=== PATIENT | male | born 1940 | race Caucasian/White ===

== ENCOUNTER 2020-12-14 21:25 | Inpatient (IN) | payer MEDICARE, BC, SELFPAY ==
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
[2020-12-14 22:21] VITALS: BP 115/61; PULSE 86; RESP 18; TEMP 36.3; O2SAT 99; BMI 25.0
--- NOTE | 2020-12-15 00:15 | NURSING ---
Report from Nicole at [facility], stated that Chu was removed at 13:12. Nicole stated patient has yet to void. When patient arrived, during Admission questions, this Nurse asked patient if he had voided yet? Patient stated, No. Abdomen soft but tender with palpation. Bladder scanned patient at >572. SANGITA Mariano called [facility]. New order to place chu. 16 [place] coude placed using sterile technique. Patient tolerated well.
[2020-12-15 05:34] LABS: Absolute Lymphocyte Count 1.37 X10^3/uL (0.83-4.51); Absolute Neutrophil Count 8.8 X10^3/uL (2.0-7.7); Basophil# 0.02 X10^3/uL; Basophil% 0.2 % (0-1); Eosinophil# 0.68 X10^3/uL; Eosinophils% 5.6 % (0-5); Hematocrit 27.8 % (40-54); Lymphocyte # 1.37 X10^3/ul (0.83-4.51); Lymphocyte % 11.3 % (19-41); Mean Corp Hgb Conc 32.4 g/dL (32-36); Mean Corpuscular Hgb 32.6 pg (27.0-32.0); Mean Corpuscular Volume 100.7 fL (80-94); Monocyte# 1.16 X10^3/uL; Monocyte% 9.6 % (0-10); NRBC Flagged by Analyzer 0 % (0-5); Neutrophil # 8.75 X10^3/uL (2.7-7.7); Neutrophil % 72.1 % (47-70); Platelet Count 156 K/mm3 (150-450); RBC Distribution Width CV 13.1 % (11.6-14.6); RBC Distribution Width SD 48.2 fl (35.1-43.9); Red Blood Count 2.76 M/mm3 (4.6-6.2); White Blood Count 12.1 K/mm3 (4.4-11.0)
[2020-12-15 05:35] LABS: Bedside Glucose 120 mg/dL (70-110)
[2020-12-15 05:43] VITALS: BP 119/57; PULSE 80
[2020-12-15] MEDS: Metoprolol(XL)Succ 25 MG Tablet PO (05:43)
[2020-12-15] MEDS: NYSTATIN 500,000 UNIT/5 ML UDC 100000 UNIT PO (05:43)
[2020-12-15] MEDS: Pregabalin 50 MG Capsule 100 MG PO (05:43)
[2020-12-15] MEDS: Pantoprazole Sodium 40 MG Tablet PO (05:43)
[2020-12-15] MEDS: Docusate Sodium 100 MG Capsule PO (05:44)
[2020-12-15] MEDS: Amiodarone 200 MG Tablet PO (05:44)
[2020-12-15] MEDS: Finasteride 5 MG Tablet PO (05:44)
[2020-12-15] MEDS: DULoxetine Hcl 30 MG Capsule PO (05:44)
[2020-12-15] MEDS: guaiFENesin 600 MG Tablet PO ×2 (05:44→17:55)
[2020-12-15] MEDS: Potassium Chloride Oral Tablet 20 MEQ PO ×3 (05:46→21:24)
[2020-12-15] MEDS: Polyethylene Glycol 3350 17 GM PACKET PO ×2 (05:46→17:55)
--- NOTE | 2020-12-15 05:52 | NURSING ---
Surgical dressing saturated with blood. Drainage coming out all sides of dressings and on green pad under patient. Removed dressing. Copious amount of blood on dressing. Also noted what appears to be a large sized blood clot. Area cleaned with normal saline and pat dry. Blood noted to be draining at the distal end of incision. New Surgical mepilex placed on left hip over surgical site. RN in room to assess area as well. RN instructed to hold Aspirin and Plavix until speak with Dr. Merrill.
[2020-12-15 06:15] LABS: Anion Gap 5 (5-15); BUN 19 mg/dL (7-18); BUN/Creat Ratio 22.3 RATIO (10-20); Calcium,Total 8.3 mg/dL (8.5-10.1); Chloride 102 mmol/L (98-107); Creatinine, Serum 0.85 mg/dL (0.70-1.30); EST Glomerular Filtration Rate 91 mL/min (>60); Est Glom Filt Rate - Afr Amer 110 mL/min (>60); Estimated Creatinine Clearance 71.36 ml/min; Glucose 113 mg/dL (74-106); Potassium 4.2 mmol/L (3.5-5.1); Sodium Level 137 mmol/L (136-145)
--- NOTE | 2020-12-15 07:55 | HP.PCM_ITS ---
HPI - General General Date of Admission: 12/14/20 HPI Narrative LUNA DUTTON, is a 80 Male with followin12/11/2020 Admit to [facility] with fall, left hip fracture. Creatinine 1.79, Troponin normal. EKG showed T wave inversions anterior leads, right bundle branch block. Chest X-ray showed small bilateral pleural effusions. 12/11/2020 Dr. Romero performed left hip hemiarthroplasty. Medical records limited. 12/14/2020 Admit to TCU with debility, here for rehabilitation, strengthening, prior to discharge home with . [facility] Medical History (Updated 12/15/20 @ 08:[address] Beny Merrill MD) 3-vessel CAD Abnormal glucose Acute DE Allergic rhinitis BPH loc w urin obs/LUTS Cataract COPD (chronic obstructive pulmonary disease) Dyspepsia Dyspepsia and other specified disorders of function of stomach Esophageal reflux Essential and other specified forms of tremor Former smoker Fracture of left hip Fracture of left hip requiring operative repair History of COPD Hyperlipidemia Hypokalemia Hypoxia Migraine Myocardial infarct Pain in limb Peripheral neuropathy Psychosexual dysfunction Home Medications amiodarone 200 mg tablet 200 mg PO DAILY 07/31/18 [History Last Taken Unknown] aspirin 81 mg tablet,delayed release 81 mg PO DAILY 07/31/18 [History Last Taken Unknown] atorvastatin 40 mg tablet 40 mg PO DAILY 07/31/18 [History Last Taken Unknown] clopidogrel 75 mg tablet 75 mg PO DAILY 07/31/18 [History Last Taken Unknown] finasteride 5 mg tablet 5 mg PO DAILY 07/31/18 [History Last Taken Unknown] furosemide 40 mg tablet 40 mg PO DAILY PRN 07/31/18 [History Last Taken Unknown] levetiracetam 1,000 mg tablet 1,000 mg PO QHS 07/31/18 [History Last Taken Unk nown] metformin 500 mg tablet 500 mg PO BREAKFAST 07/31/18 [History Last Taken Unknown] pantoprazole 40 mg tablet,delayed release 40 mg PO DAILY 07/31/18 [History Last Taken Unknown] potassium chloride 20 mEq tablet,extended release(part/cryst) 20 meq PO TID 07/31/18 [History Last Taken Unknown] tamsulosin 0.4 mg capsule 0.4 mg PO QHS 07/31/18 [History Last Taken Unknown] topiramate 200 mg tablet 200 mg PO QHS 07/31/18 [History Last Taken Unknown] prednisone 10 mg tablet 10 mg PO QDAY #30 tablet 06/03/20 [Rx Last Taken Unknown] albuterol sulfate [Ventolin HFA] 2 puff INHALATION Q6H 12/14/20 [History Last Taken Unknown] ciclesonide [Alvesco] 2 puff INHALATION BID 12/14/20 [History Last Taken Unknown] tiotropium-olodaterol [Stiolto Respimat] 2 puff INHALATION DAILY 12/14/20 [History Last Taken Unknown] Allergy/AdvReac Type Severity Reaction Status Date / Time tizanidine Allergy Unknown Irritabilit Verified 06/03/20 13:53 y Family History Mother Heart disease Father COPD (chronic obstructive pulmonary disease) CVA (cerebral vascular accident) Surgical History (Updated 12/15/20 @ 07:[address] Beny Merrill MD) History of left hip hemiarthroplasty Social History (Updated 12/15/20 @ 07:[address] Beny Merrill MD) household members: spouse Smoking Status: Former smoker Tobacco: How many years used: 50 how long ago did patient quit smokin, 3ppd second hand exposure: Yes alcohol intake: current alcohol intake frequency: holidays/special occasions only Alcohol type: beer ROS Constitutional Constitutional: Denies chills, fever(s) or weight gain ENT HEENT: Denies headache(s), nasal congestion or nasal discharge Cardiovascular Cardiovascular: Denies chest pain or palpitations Respiratory/Chest Respiratory/Chest: Denies cough, excessive phlegm production or shortness of breath with exertion Gastrointestinal Gastrointestinal: Denies abdominal pain, nausea or vomiting Genitourinary Genitourinary: Denies dysuria Musculoskeletal Musculoskeletal: Denies joint pain or joint swelling Integumentary Integumentary: Denies rash or wounds Neurologic Neurologic: Denies focal weakness, numbness or tingling Psychiatric Psychiatric: Reports auditory hallucinations; Denies anxiety, depression, homicidal ideation or suicidal ideation Vital Signs Vital Signs Vital Signs: 12/14/20 22:21 12/14/20 23:20 12/15/20 05:43 Temperature 97.4 F L Temperature Source Temporal Pulse Rate 86 80 Pulse Rhythm Regular Pulse Strength Normal (2+) Respiratory Rate 18 Respiratory Effort Normal Non-Labored Respiratory Depth Normal Respiratory Pattern Normal Blood Pressure 115/61 119/57 L Blood Pressure Mean 79 Blood Pressure Source Monitor Pulse Ox 99 Oxygen Delivery Method Nasal Cannula Nasal Cannula Oxygen Flow Rate (L/min) 3 3 12/15/20 07:15 Temperature Temperature Source Pulse Rate Pulse Rhythm Pulse Strength Respiratory Rate Respiratory Effort Respiratory Depth Respiratory Pattern Blood Pressure Blood Pressure Mean Blood Pressure Source Pulse Ox Oxygen Delivery Method Nasal Cannula Oxygen Flow Rate (L/min) 3 Weight Weight: 81.25 kg Body Mass Index (BMI) 25.0 Physical Exam Const alert and oriented x3 General Appearance: cooperative HEENT normocephalic Eyes PERRL and EOMs intact bilaterally Neck supple, no JVD and no carotid bruits Resp normal respiratory effort, normal air movement and clear to auscultation bilaterally Cardio regular rate and regular rhythm GI normal to inspection, nondistended, normoactive bowel sounds, non-tender and non-distended Extremity normal capillary refill General Extremity: Negative for edema Skin no rashes or lesions noted General Skin Exam: no breakdown Psych affect normal Appearance: appropriate Results Lab / Micro Data Result Diagrams: 12/15/20 05:05 12/15/20 05:05 Labs: Laboratory Results - last 24 hr 12/15/20 05:05: WBC 12.1 H, RBC 2.76 L, Hgb 9.0 L, Hct 27.8 L, MCV 100.7 H, MCH 32.6 H, MCHC 32.4, RDW Std Deviation 48.2 H, RDW Coeff of [place] 13.1, Plt Count 156, MPV 10.0, Immature Gran % (Auto) 1.200 H, Neut % (Auto) 72.1 H, Lymph % (Auto) 11.3 L, [place] % (Auto) 9.6, Eos % (Auto) 5.6 H, Baso % (Auto) 0.2, Absolute Neuts (auto) 8.8 H, Absolute Lymphs (auto) 1.37, Nucleated RBC % 0 12/15/20 05:05: Sodium 137, Potassium 4.2, Chloride 102, Carbon Dioxide 30.0, Anion Gap 5, BUN 19 H, Creatinine 0.85, Estim Creat Clear Calc 71.36, Est GFR (MDRD) Af Amer 110, Est GFR (MDRD) Non-Af 91, BUN/Creatinine Ratio 22.3 H, Glucose 113 H, Calcium 8.3 L 12/15/20 05:33: POC Glucose 120 H Assessment & Plan Assessment/Plan (1) Debility: (2) Closed left hip fracture: (3) Asthma: (4) COPD (chronic obstructive pulmonary disease): (5) Atrial fibrillation: (6) Hyperlipidemia: (7) Anxiety: (8) Coronary artery disease: (9) Benign prostatic hyperplasia: (10) Edema: (11) Diabetic neuropathy: (12) Diabetes mellitus: (13) Hypertension: (14) Gastroesophageal reflux disease: (15) Hypokalemia: PLAN: 80 year old male with below past medical history hospitalized for left hip fracture, underwent left hip hemiarthroplasty 12/11/2020, admitted to TCU with debility, here for rehabilitation, strengthening, prior to discharge home with . * Debility - PT/OT. * Pain - Tylenol 1000mg Q6H prn pain (1-3), Tramadol 50mg Q6H prn pain (4-10). * Bowel - Miralax 17gm bid, Senna/colace 2 tablets twice daily, Dulcolax 10mg daily prn. * Adult immunization - Administer prevnar 13, pneumovax 23, fluzone, covid19 vaccine as appropriate. * DVT prophylaxis - Hold, bleeding from incision. * Asthma/COPD - Anoro 1 puff daily, Budesonide 0.5mg neb bid, Albuterol 2 puffs Q6H. * Atrial fibrillation - Metoprolol succinate 25mg daily, Amiodarone 200mg daily, ?anticoagulation. * Coronary Artery disease - Metoprolol succinate 25mg daily, Plavix 75mg daily, Hold aspirin 81mg daily x 7 days due to incision bleeding. * Hyperlipidemia - Atorvastatin 40mg qhs. 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 * BPH/urinary retention - Finasteride 5mg daily, Tamsulosin 0.4mg daily, indwelling chu catheter due to retention, remove chu in 3 days. * Edema - Lasix 40mg daily * Congestion - Mucinex 600mg bid. * Diabetic polyneuropathy(severe) - Keppra 1500mg QAM, 1000mg QHS, Lyrica 100mg QAM, 200mg QHS, Topamax 200mg QHS. * Insomnia - Melatonin 10mg QHS. * Skin irritation - Calmoseptine topical twice daily. * Diabetes Mellitus II - Metformin 500mg QAM. * Thrush - Nystatin 500,000 units 4x/day x 10 days. * Tinea Corporis - Nystatin powder topical twice daily. * GERD - Pantoprazole 40mg daily. * Dry Eyes - Artificial Tears 2gtt Q1H prn. * Hypokalemia - KCL 20meq tid.
[2020-12-15] MEDS: Menthol/Lanolin/Calamine/Znox 113 GM Tube 1 APPLIC TOPICAL ×2 (08:44→21:25)
[2020-12-15] MEDS: Nystatin Powder 15gm Bottle 1 APPLIC TOPICAL ×2 (08:45→21:25)
[2020-12-15] MEDS: Acetaminophen 500 MG Tablet 1000 MG PO (08:47)
[2020-12-15] MEDS: traMADol 50 MG Tablet PO (08:47)
[2020-12-15] MEDS: Senna/Docusate Sodium 1 Tablet 2 TABLET PO ×2 (08:49→17:55)
[2020-12-15] MEDS: metFORMIN HCl 500 MG Tablet PO (08:49)
[2020-12-15] MEDS: Clopidogrel Bisulfate 75 MG Tablet PO (08:50)
[2020-12-15] MEDS: Furosemide 40 MG Tablet PO (08:56)
[2020-12-15] MEDS: Bisacodyl 5 MG Tablet 10 MG PO (08:56)
[2020-12-15] MEDS: levETIRAcetam 1,000 MG Tablet 1000 MG PO ×2 (08:57→21:25)
[2020-12-15] MEDS: levETIRAcetam 500 MG Tablet PO (08:57)
--- NOTE | 2020-12-15 09:15 | NURSING ---
PT [facility] BRINGS IN CARD TO SHOW THAT PT HAS HAD HIS COVID SHOTS. THIS NURSE CALLED AND SHE STATED SHE WOULD BRING IT IN TODAY. SHE ASKED HOW HE WAS DOING,UPDATED HER AND THEN SHE STATED THAT THE 2 OF THEM ARE NOT GETTING ALONG LATELY AND STATED THAT THE PT IS MAD AT HER. RN AWARE
[2020-12-15] MEDS: Tuberculin,Purif.prot.deriv. 50 TU/ML Vial 0.1 ML ID (10:53)
[2020-12-15 10:55] LABS: Bedside Glucose 161 mg/dL (70-110)
[2020-12-15] MEDS: NYSTATIN 500,000 UNIT/5 ML UDC 500000 UNIT PO ×3 (11:14→21:25)
--- NOTE | 2020-12-15 11:35 | NURSING ---
PRN DULCOLAX GIVEN THIS MORNING DUE TO UNKNOWN LAST BM.
[2020-12-15] MEDS: 0.9% Saline Lock 10 ML Syringe IV ×2 (12:52→21:27)
[2020-12-15 14:19] VITALS: BP 132/69; PULSE 72; RESP 16; TEMP 36.3; O2SAT 98
--- NOTE | 2020-12-15 16:04 | PCM.PN.RX ---
Progress Note - Pharmacy Subjective: TCU Admission Objective: Allergies tizanidine Allergy (Unknown, Verified 06/03/20 13:55) Irritability Current Medications Generic Name Dose Route Start Last Admin Trade Name Freq PRN Reason Stop Dose Admin Acetaminophen 1,000 mg 12/15/20 08:20 12/15/20 08:47 Acetaminophen 500 Mg Tablet PO 1,000 mg Q6H PRN PRN Administration Pain Score 1-3 Albuterol Sulfate 2 puff 12/15/20 06:00 12/15/20 11:14 Albuterol Sulfate Hfa 6.7 Gm Inhaler (200 Puffs) INHALATION 2 puff Q6 PRISCILA Administration Amiodarone HCl 200 mg 12/15/20 06:00 12/15/20 05:44 Amiodarone 200 Mg Tablet PO 200 mg DAILY PRISCILA Administration Aspirin 81 mg 12/15/20 06:00 12/15/20 08:50 Aspirin E.C. 81 Mg Tablet PO Not Given DAILY PRISCILA Atorvastatin Calcium 40 mg 12/15/20 22:00 Atorvastatin Calcium 40 Mg Tablet PO QHS PRISCILA Bisacodyl 10 mg 12/15/20 08:20 12/15/20 08:56 Bisacodyl 5 Mg Tablet PO 10 mg DAILY PRN Administration Constipation Budesonide 0.5 mg 12/15/20 08:15 Budesonide Respules 0.5 Mg/2 Ml Ampul.Neb. INHALATION BID.RT PRISCILA Calamine/Phenol 1 applic 12/15/20 06:00 12/15/20 08:44 Menthol/Lanolin/Calamine/Znox 113 Gm Tube TOPICAL 1 applic BID PRISCILA Administration Protocol Clopidogrel Bisulfate 75 mg 12/15/20 06:00 12/15/20 08:50 Clopidogrel Bisulfate 75 Mg Tablet PO 75 mg DAILY PRISCILA Administration Duloxetine HCl 30 mg 12/15/20 06:00 12/15/20 05:44 Duloxetine Hcl 30 Mg Capsule PO 30 mg DAILY PRISCILA Administration Finasteride 5 mg 12/15/20 06:00 12/15/20 05:44 Finasteride 5 Mg Tablet PO 5 mg DAILY PRISCILA Administration Furosemide 40 mg 12/15/20 08:00 12/15/20 08:56 Furosemide 40 Mg Tablet PO 40 mg DAILY PRISCILA Administration Guaifenesin 600 mg 12/15/20 06:00 12/15/20 05:44 Guaifenesin 600 Mg Tablet PO 600 mg BID PRISCILA Administration Levetiracetam 1,000 mg 12/15/20 10:00 12/15/20 08:57 Levetiracetam 1,000 Mg Tablet PO 1,000 mg QAM PRISCILA Administration Levetiracetam 500 mg 12/15/20 10:00 12/15/20 08:57 Levetiracetam 500 Mg Tablet PO 500 mg QAM PRISCILA Administration Levetiracetam 1,000 mg 12/15/20 22:00 Levetiracetam 1,000 Mg Tablet PO QHS PRISCILA Melatonin 10 mg 12/15/20 22:00 Melatonin 10 Mg Tablet PO QHS PRISCILA Metformin HCl 500 mg 12/15/20 08:00 12/15/20 08:49 Metformin Hcl 500 Mg Tablet PO 500 mg BREAKFAST PRISCILA Administration Metoprolol Succinate 25 mg 12/15/20 06:00 12/15/20 05:43 Metoprolol(Xl)Succ 25 Mg Tablet PO 25 mg DAILY PRISCILA Administration Nystatin 1 applic 12/15/20 06:00 12/15/20 08:45 Nystatin Powder 15gm Bottle TOPICAL 1 applic BID PRISCILA Administration Protocol Nystatin 500,000 unit 12/15/20 12:00 12/15/20 11:14 Nystatin 500,000 Unit/5 Ml Udc PO 12/25/20 12:01 500,000 unit 4X/DAY PRISCILA Administration Pantoprazole Sodium 40 mg 12/15/20 06:00 12/15/20 05:43 Pantoprazole Sodium 40 Mg Tablet PO 40 mg DAILY PRISCILA Administration Polyethylene Glycol 17 gm 12/15/20 06:00 12/15/20 05:46 Polyethylene Glycol 3350 17 Gm Packet PO 17 gm BID PRISCILA Administration Potassium Chloride 20 meq 12/15/20 06:00 12/15/20 13:00 Potassium Chloride Oral Tablet 20 Meq PO 20 meq TID PRISCILA Administration Pregabalin 100 mg 12/15/20 06:00 12/15/20 05:43 Pregabalin 50 Mg Capsule PO 100 mg DAILY PRISCILA Administration Pregabalin 200 mg 12/15/20 22:00 Pregabalin 50 Mg Capsule PO QHS PRISCILA Senna/Docusate Sodium 2 tablet 12/15/20 08:30 12/15/20 08:49 Senna/Docusate Sodium 1 Tablet PO 2 tablet BID PRISCILA Administration Sodium Chloride 10 - 40 ml 12/15/20 11:27 12/15/20 12:52 0.9% Saline Lock 10 Ml Syringe IV 10 ml UD PRN Administration SALINE FLUSH Tamsulosin HCl 0.4 mg 12/15/20 22:00 Tamsulosin Hcl 0.4 Mg Capsule PO QHS PRISCILA Topiramate 200 mg 12/15/20 22:00 Topiramate 200 Mg Tablet PO QHS PRISCILA Tramadol HCl 50 mg 12/14/20 23:31 12/15/20 08:47 Tramadol 50 Mg Tablet PO 50 mg Q6H PRN PRN Administration moderate pain 4-10 Tuberculin PPD 0.1 ml 12/22/20 10:00 Tuberculin,Purif.Prot.Deriv. 50 Tu/Ml Vial ID 12/22/20 10:01 X1 ONE Problem List (Last Reviewed 12/15/20 @ 07:[address] Beny Merrill MD) Hypokalemia (Acute) Gastroesophageal reflux disease (Acute) Hypertension (Chronic) Diabetes mellitus (Acute) Diabetic neuropathy (Acute) Edema (Acute) Benign prostatic hyperplasia (Acute) Coronary artery disease (Acute) Anxiety (Acute) Hyperlipidemia (Acute) Atrial fibrillation (Acute) COPD (chronic obstructive pulmonary disease) (Chronic) Asthma (Acute) Closed left hip fracture (Acute) Debility (Acute) Vital Signs Temp Pulse Resp BP Pulse Ox 97.4 F L 72 16 132/69 H 98 12/15/20 14:19 12/15/20 14:19 12/15/20 14:19 12/15/20 14:19 12/15/20 14:19 Oxygen Flow Rate (L/min) 3 Oxygen Delivery Method Nasal Cannula Weight: 81.306 kg Body Mass Index (BMI) 25.0 Sodium 137 mmol/L (136-145) 12/15/20 05:05 Potassium 4.2 mmol/L (3.5-5.1) 12/15/20 05:05 Chloride 102 mmol/L (98-107) 12/15/20 05:05 Carbon Dioxide 30.0 mmol/L (21.0-32.0) 12/15/20 05:05 Anion Gap 5 (5-15) 12/15/20 05:05 BUN 19 mg/dL (7-18) H 12/15/20 05:05 Creatinine 0.85 mg/dL (0.70-1.30) 12/15/20 05:05 Est GFR (MDRD) Af Amer 110 mL/min (>60) 12/15/20 05:05 Est GFR (MDRD) Non-Af 91 mL/min (>60) 12/15/20 05:05 BUN/Creatinine Ratio 22.3 RATIO (10-20) H 12/15/20 05:05 Glucose 113 mg/dL (74-106) H 12/15/20 05:05 Assessment/Plan: 1. Pain: acetaminophen 1000mg PO Q6H PRN pain 1-3 and tramadol 50mg PO Q6H PRN pain 4-10. Please continue to monitor for increased pain, PRN usage, renal function, constipation and respiratory depression. 2. Atrial fibrillation/CAD: metoprolol succinate 25mg PO daily, amiodarone 200mg PO daily, clopidogrel 75mg PO daily and aspirin 81mg PO daily (on hold for 7 days due to incision bleeding). Please continue to monitor HR (last 72), BP (last 132/69), potassium (last 4.2mmol/L), sodium (last 137mmol/L), hemoglobin (last 9g/dL) and S/S of bleeding. *3. Hyperlipidemia: atorvastatin 40mg PO QHS. Please consider ordering a lipid panel if clinically appropriate. Patient does not have one in the chart. Thanks. Please continue to monitor for muscle pain. 4. Edema: furosemide 40mg PO daily. Please continue to monitor potassium, sodium, edema and renal function. 5. BPH/urinary retention: finasteride 5mg PO daily and tamsulosin 0.4mg PO QHS. Please continue to monitor for S/S of BPH/urinary retention, anticholinergic side effects and BP. 6. Diabetic polyneuropathy: levetiracetam 1500mg PO QAM and 1000mg QHS, pregabalin 100mg PO QAM and 200mg QHS, topiramate 200mg PO QHS. Please continue to monitor for increased pain, confusion and renal function. *7. Diabetes mellitus II: metformin 500mg PO breakfast. Please consider ordering a hemoglobin A1c (no level in chart) if clinically appropriate. Please continue to monitor glucose (last 161mg/dL), renal function and S/S of hypoglycemia. 8. GERD: pantoprazole 40mg PO daily. Please continue to monitor for S/S of GERD and diarrhea. 9. Hypokalemia: potassium chloride 20mEq PO TID. Please continue to monitor potassium levels. 10. Asthma/COPD: Anoro Ellipta 1 puff daily, budesonide 0.5mg nebulized solution 0.5mg inhalation BID, and albuterol inhaler 2puffs inhalation Q6H. Please continue to monitor for S/S of asthma/COPD, HR and thrush. 11. Congestion: guaifenesin 600mg PO BID. Please continue to monitor for congestion. 12. Insomnia: melatonin 10mg PO QHS. Please continue to monitor for insomnia. 13. Thrush: nystatin 500,000units PO 4x.day x 10 days. Please continue to monitor for S/S of thrush. 14. Dry eyes: artificial tears 2gtt Q1H PRN dry eyes. Please continue to monitor. Psychotropic Medications: 1. Depression: duloxetine 30mg PO daily. Please see physician note regarding GDR. Unnecessary Medications: None Bowel Regimen: Miralax 17gm PO BID, senna/docusate 2T PO BID, and bisacodyl 10mg PO daily PRN constipation. Please continue to monitor for constipation and PRN usage. Date of Note:: 12/15/20
[2020-12-15 16:26] LABS: Bedside Glucose 152 mg/dL (70-110)
--- NOTE | 2020-12-15 17:08 | CASEMGMT ---
Addendum entered by Mary Tong 12/16/20 15:23: Received return phone call from Derrick Hammond TELEVISION ANTENNA INSTALLER. Spoke from 14:15-14:45. Manish reports working with pt for about five years and very knowledgeable about pt//son relationship and incident in February. Manish explained pt was exhibiting signs of mental status change. Confirmed pt was having a bad dream one night and thought was an intruder, began hitting and yelling at her in his sleep. He explained pt does have hx of violent outbursts (which was also in the EMT report - see previous note). TELEVISION ANTENNA INSTALLER consulted with PCP, Nicole Talavear, and agreed to call EMS/[facility] for ED mental health evaluation for possible geripsych, adjustment in medications and assist with anger/behaviors. TELEVISION ANTENNA INSTALLER confirmed there was no Bomb Squad involvement, to his knowledge. However, ED cleared pt and DC'd him home with no changes. TELEVISION ANTENNA INSTALLER had discussion at that time with pt//son on securing firearms out of pt's reach, justifying to pt that he would not accidentally use them on family thinking it was another intruder, etc. Pt agreed, but per TELEVISION ANTENNA INSTALLER, always became angry when discussing not having access to his firearms. TELEVISION ANTENNA INSTALLER explained would always have a gun around the house with hi - in his recliner, the kitchen, bedside table. OMID provided information to TELEVISION ANTENNA INSTALLER about pt stating he still has access to firearms, and this worker recommending to to take all firearms out of house and she agreed. TELEVISION ANTENNA INSTALLER agreed as well. TELEVISION ANTENNA INSTALLER explained he has been making recommendations for SNF for pt for the past year - has medical issues and cannot care for him, and son just had major heart attacked a month ago and can no longer assist pt. Thanked TELEVISION ANTENNA INSTALLER for information and IDT will take that information into account when making DC recommendations. Will update TELEVISION ANTENNA INSTALLER of DC plans. TELEVISION ANTENNA INSTALLER appreciative. Addendum entered by Mary Tong 12/16/20 15:20: In efforts to get further information on incident with alleged Bomb Squad, [facility]'s office and EMS, OMID spoke with dispatcher at [facility]'s office to inquire about any records. It was confirmed there was a report in February 2020 that pt was taken to ED, but no supportive documentation of Bomb Squad involvement or issues with firearms. Left message with [facility] TELEVISION ANTENNA INSTALLER to get further information. Addendum entered by Mary Tong 12/16/20 15:04: Received call from : Spoke 11:30 am - 12:00 pm. provided additional information from her point of view from what pt disclosed to this worker. expressed she understands pt is mad at her because he thinks she made the decision for him to come to a SNF that he will end up in a SNF and not be able to come home, but it was the Dr's recommendations. She stated pt is not able to assist her or with any power marketer because he is not physically capable. She stated him taking a shower became very fatiguing and now he just sponge bathes. confirmed she has her own medical issues for the past five years and each year it gets harder to take care of him. Explained IDT will make recommendations on safe DC plans and this worker will assist in explaining it is IDTs recommendations, not her decision. appreciative. Inquired about home environment and relationship, any safety concerns with pt. explained pt has been attending [facility] in [place] with Radha Lewis for anger management the past month. Pt is voluntarily attending, but still having anger issues. explained pt has different personalities when talking to her/son and to anyone else. describes pt as verbally abusive to her; denies any physical harm, but recently, she has become more scared of him when he was having a bad dream and woke up to him trying to hit her in his sleep. also described an incident when pt was watching politics on TV and began yelling at the TV making threats on taking care of them with his firearms. She stated she discloses any scenarios, such as that to [facility] TELEVISION ANTENNA INSTALLER Manish. Manish works with PCP Nicole Talavera, per . When this happened is when the Gi Tech, EMT and Bomb Squad came to the house to take pt to the ED and firearms were locked up away from pt. provided this worker with Manish's contact information to inquire further. Office #[phone]. . Discussed with recommendations to complete reduce lethal means, and while pt is admitted, to work with son's to remove all firearms from home; especially, since pt made the statement that he could get to the firearms if he wanted to. agreed - stated her son from [place], BENJAMIN is coming into town Dec.25 and he can take the firearms home with him. Thanked for speaking and being open with this worker. SW will continue to assist with a safe DC plan and ongoing support. appreciative. Original Note: Social Work Reason for intervention: safety concerns at home between and patient Time of intervention: 14:15-15:15 Met with patient to complete initial assessment and follow up from nursing reports of home safety concerns. Explained Medicare benefit. Encouraged pt to contact secondary insurance to ensure copay coverage. Pt lives at home in one story home with and son. Son is about 60 years old; he lost his house that was the lot behind pt's home about 3-4 months ago and moved in, per pt. Inquired about pt's relationship with son. Pt described it as tense, mom rules the roost; he always listens to over him; he is snappy with pt. Explored any safety concerns with son. Pt shared incident about 20 years ago, but no issues physically or since that time. Inquired about relationship with and any safety concerns. Pt was hesitant to answer 'yes' to feeling safe at home; however, upon further exploration, pt feels this way related to thinking will place him in a SNF and he doesn't want to go to a SNF. He expressed hesitation with her remaining POA so she couldn't put him in a SNF. Explained competence and POA decision making. Pt expressed understanding to use of POA. Discussed any barriers with pt returning home and if /son could assist him if needed. Pt explained has own medical issues and couldn't physically heavily assist. Explained IDT will make recommendations for a safe DC plan, and if it is recommended for a SNF because home potentially would not be successful, would pt agree. Pt replied, reluctantly, but I want to know my did everything she could before placing me in a SNF. Validated feelings. Encouraged to have open, honest conversation with on his wishes since she is POA, but offered to complete new documents if pt wished. Pt expressed understanding. Pt overall concerned about being placed in a SNF inappropriately by due to anger from past marital issues, but does deny any safety concerns. Reiterated IDT will make recommendations and pt and to consider for safe a DC. Provided ideas on how to further address any miscommunication with moving forward. 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 Discussed how pt has firearms in the home and if there are any concerns with pt using them to harm himself or others. Pt strongly denied. Pt denied having any anger issues or outbursts - I just get mad watching politics. Pt disclosed there was a situation several months ago when [facility]'s Palliative TELEVISION ANTENNA INSTALLER, [facility]'s office and EMS arrived at the home to bring pt to ED for evaluation. Pt stated he was eventually agreeable to go to ED after some discussion with - he didn't want to put the Gi Tech in a bind because I know how that goes. Pt stated he is in the ED for several hours, but released to go home. Since that time, and son have followed recommendations from TELEVISION ANTENNA INSTALLER to lock up firearms in the basement. However, pt stated they think I can't get to the basement or have access to the safe, but I do - they don't know that, but I do. Pt continues to deny any thoughts of self harm or harming others. Pt gave permission for this worker to speak with . Throughout conversation, this worker provided ongoing supportive listening, verbal and emotional support, validated feelings. Thanked pt for speaking and disclosing all detailed, personal information to this worker. Pt expressed appreciation for listening to him. Offered continued support throughout stay. Will continue to follow for safety at DC and support. LATASHA Gray
--- NOTE | 2020-12-15 18:14 | NURSING ---
THIS NURSE ENTERED PT ROOM AND PT WAS TALKING TO PT CALMLY AND PT STARTED YELLING AT . THIS NURSE STAYED IN ROOM TO PASS MEDS AND PT CONTINUED TO SNAP AT WHEN WORD SAY ANYING IN A CALM MANNER . PT ALSO SNAPPED AT THIS NURSE FOR ASKING A QUESTION ABOUT HIS MEDS. REPORTED TO RN AND DRAFTER CASTINGS.
[2020-12-15 19:01] VITALS: PULSE 79; RESP 17
[2020-12-15] MEDS: Ipratropium/Albuterol Sulfate 3 ML AMPUL.NEB INHALATION (19:01)
[2020-12-15] MEDS: Budesonide Respules 0.5 MG/2 ML AMPUL.NEB. INHALATION (19:01)
[2020-12-15 20:26] VITALS: PULSE 82; RESP 16; O2SAT 99
[2020-12-15 21:21] LABS: Bedside Glucose 154 mg/dL (70-110)
[2020-12-15] MEDS: Tamsulosin HCl 0.4 MG Capsule PO (21:24)
[2020-12-15] MEDS: MELATONIN 10 MG TABLET PO (21:24)
[2020-12-15] MEDS: Topiramate 200 MG Tablet PO (21:24)
[2020-12-15] MEDS: Atorvastatin Calcium 40 MG Tablet PO (21:24)
[2020-12-15] MEDS: Pregabalin 50 MG Capsule 200 MG PO (21:35)
[2020-12-16 05:34] VITALS: BP 127/56; PULSE 80
[2020-12-16] MEDS: NYSTATIN 500,000 UNIT/5 ML UDC 500000 UNIT PO ×4 (05:34→22:00)
[2020-12-16] MEDS: Finasteride 5 MG Tablet PO (05:34)
[2020-12-16] MEDS: Metoprolol(XL)Succ 25 MG Tablet PO (05:34)
[2020-12-16] MEDS: Senna/Docusate Sodium 1 Tablet 2 TABLET PO ×2 (05:34→17:05)
[2020-12-16] MEDS: DULoxetine Hcl 30 MG Capsule PO (05:34)
[2020-12-16] MEDS: Polyethylene Glycol 3350 17 GM PACKET PO ×2 (05:34→17:05)
[2020-12-16] MEDS: Furosemide 40 MG Tablet PO (05:34)
[2020-12-16] MEDS: traMADol 50 MG Tablet PO ×2 (05:34→22:00)
[2020-12-16] MEDS: Pantoprazole Sodium 40 MG Tablet PO (05:34)
[2020-12-16] MEDS: guaiFENesin 600 MG Tablet PO ×2 (05:34→17:05)
[2020-12-16] MEDS: Potassium Chloride Oral Tablet 20 MEQ PO ×3 (05:34→22:00)
[2020-12-16] MEDS: Clopidogrel Bisulfate 75 MG Tablet PO (05:35)
[2020-12-16] MEDS: Pregabalin 50 MG Capsule 100 MG PO (05:49)
[2020-12-16] MEDS: Menthol/Lanolin/Calamine/Znox 113 GM Tube 1 APPLIC TOPICAL ×2 (05:51→22:01)
[2020-12-16] MEDS: Nystatin Powder 15gm Bottle 1 APPLIC TOPICAL ×2 (05:52→22:01)
--- NOTE | 2020-12-16 05:53 | NURSING ---
At 2137 this nurse removed x2 Lyrica 50 mg capsules from Accudose. Then realized patients dose at HS was 200mg. Went back into Accudose and removed 2 more 50 mg capsules. Under Lyrica HS order it says to remove 4 50 mg capsules. This Nurse only removed 21 50 mg capsules, but hit that I took 4. Realized it right away and called Milan in Pharmacy. Milan said to go in and act like I am returning 2 capsules. I did this at 21:32 hours. When this Nurse went to removed 0600 dose of 100 mg (2x50mg capsules) the count was 9 capsules. Which now shows a discrepancy surplus of 2. Called pharmacy again and Milan said to resolve discrepancy and put a note in.
[2020-12-16 05:59] VITALS: RESP 16; TEMP 36.4; O2SAT 96
[2020-12-16 06:25] LABS: Bedside Glucose 132 mg/dL (70-110)
[2020-12-16 07:47] VITALS: PULSE 80; RESP 19
[2020-12-16] MEDS: Budesonide Respules 0.5 MG/2 ML AMPUL.NEB. INHALATION ×2 (07:50→19:54)
[2020-12-16] MEDS: Ipratropium/Albuterol Sulfate 3 ML AMPUL.NEB INHALATION ×2 (07:50→19:54)
[2020-12-16] MEDS: Amiodarone 200 MG Tablet PO (08:10)
[2020-12-16] MEDS: metFORMIN HCl 500 MG Tablet PO (08:10)
[2020-12-16] MEDS: levETIRAcetam 500 MG Tablet PO (10:32)
[2020-12-16] MEDS: levETIRAcetam 1,000 MG Tablet 1000 MG PO ×2 (10:32→22:00)
--- NOTE | 2020-12-16 11:22 | NURSING ---
LBM unknown, upon assessment this nurse noted abdomen to he firm, distended and palpable hard areas throughout abdomen, RUQ/RLQ hypoactive bowel sounds and LUQ sounds tympanic like a leaking faucet, LLQ normoactive BS. Dr. Merrill updated N.O. KUB, SSE
[2020-12-16] MEDS: Magnesium Citrate 300 ML PO (11:53)
--- NOTE | 2020-12-16 11:59 | NURSING ---
Soap suds enema given, pt was able to retain all of liquid, pt had large BM
--- NOTE | 2020-12-16 12:10 | RAD_ITS ---
STUDY: X-RAY - ABDOMEN/PELVIS REASON FOR EXAM: Male, 80 years old. Constipation TECHNIQUE: Single AP view of the abdomen / pelvis. COMPARISON: None. FINDINGS: Mild increased markings at the left lung base with blunting of the left costophrenic angle. This may represent atelectasis. There is a moderate amount of colonic fecal material. The visualized liver, spleen and kidneys are grossly normal in size and morphology. Normal soft tissue structures. There are diffuse degenerative changes of the visualized lumbar spine. The patient is status post left total hip replacement. RAD/Abdomen Single View IMPRESSION: Moderate amount of fecal material is seen in the colon. Electronically Signed: Ted Cartagena MD at 12:31 EDT , Service support ,
[2020-12-16 19:54] VITALS: PULSE 82; RESP 18
[2020-12-16] MEDS: Atorvastatin Calcium 40 MG Tablet PO (22:00)
[2020-12-16] MEDS: MELATONIN 10 MG TABLET PO (22:00)
[2020-12-16] MEDS: Topiramate 200 MG Tablet PO (22:00)
[2020-12-16] MEDS: Tamsulosin HCl 0.4 MG Capsule PO (22:01)
[2020-12-16] MEDS: Pregabalin 50 MG Capsule 200 MG PO (22:03)
[2020-12-16 22:08] VITALS: BP 124/54; PULSE 84; RESP 22; TEMP 37.5; O2SAT 93
[2020-12-16 22:11] VITALS: TEMP 37.7
--- NOTE | 2020-12-16 23:00 | RAD_ITS ---
STUDY: X-RAY CHEST REASON FOR EXAM: Male, 80 years old. Crackles noted in lower lobes TECHNIQUE: Single AP portable view of the chest. COMPARISON: None. FINDINGS: Ill-defined subpleural groundglass opacities are seen more prominent in the right upper lobe, may represent atypical pneumonia or viral pneumonia (COVID-19 ?). There is small left pleural effusion. Normal size heart. Normal mediastinum and jagdish. Normal visualized pulmonary arteries. Normal visualized aortic arch and descending thoracic aorta. Normal visualized thoracic spine. Normal visualized ribs, clavicles, and shoulders. There is no demonstrated abnormality of the visualized soft tissue structures of the upper abdomen. RAD/Chest PA and Lateral IMPRESSION: Ill-defined subpleural groundglass opacities are seen more prominent in the right upper lobe, may represent atypical pneumonia or viral pneumonia (COVID-19 ?). Electronically Signed: Greg Stone MD at 1:19 EDT Tel , Service support ,
--- NOTE | 2020-12-16 23:05 | NURSING ---
Patient noted to have crackles in right and left lower lobes. Has been more lethargic, intake <25% of meals. Incision continues to drain copious amounts of blood. WBC on 12/15/[address] Merrill notified condition and VS. New orders received for chest x-ray, BMP and CBC w/diff stat. Patient to start Cefdinir 300mg bid x 7 days as well as Z-dagoberto, to receive first dose of each now. Orders also to stop plavix at this time. Will continue to monitor.
[2020-12-16] MEDS: Azithromycin 250 MG Tablet 500 MG PO (23:31)
[2020-12-16] MEDS: Cefdinir 300 MG Capsule PO (23:31)
[2020-12-16 23:33] LABS: Absolute Lymphocyte Count 1.25 X10^3/uL (0.83-4.51); Absolute Neutrophil Count 10.5 X10^3/uL (2.0-7.7); Basophil# 0.02 X10^3/uL; Basophil% 0.1 % (0-1); Eosinophil# 0.26 X10^3/uL; Eosinophils% 1.9 % (0-5); Hematocrit 27.8 % (40-54); Lymphocyte # 1.25 X10^3/ul (0.83-4.51); Lymphocyte % 9.3 % (19-41); Mean Corp Hgb Conc 32.4 g/dL (32-36); Mean Corpuscular Hgb 32.3 pg (27.0-32.0); Mean Corpuscular Volume 99.6 fL (80-94); Mean Platelet Vol. 9.6 fl (6.2-12.0); Monocyte% 8.9 % (0-10); NRBC Flagged by Analyzer 0 % (0-5); Neutrophil # 10.48 X10^3/uL (2.7-7.7); Neutrophil % 77.8 % (47-70); Platelet Count 196 K/mm3 (150-450); RBC Distribution Width CV 13.1 % (11.6-14.6); RBC Distribution Width SD 47.7 fl (35.1-43.9); Red Blood Count 2.79 M/mm3 (4.6-6.2); White Blood Count 13.5 K/mm3 (4.4-11.0)
[2020-12-16 23:40] LABS: Anion Gap 5 (5-15); BUN 18 mg/dL (7-18); BUN/Creat Ratio 20.3 RATIO (10-20); Calcium,Total 8.5 mg/dL (8.5-10.1); Chloride 103 mmol/L (98-107); Creatinine, Serum 0.88 mg/dL (0.70-1.30); EST Glomerular Filtration Rate 87 mL/min (>60); Est Glom Filt Rate - Afr Amer 106 mL/min (>60); Estimated Creatinine Clearance 68.93 ml/min; Glucose 127 mg/dL (74-106); Potassium 4.4 mmol/L (3.5-5.1); Sodium Level 137 mmol/L (136-145)
[2020-12-17] VITALS (8 sets, daily range): BP systolic 102–113; BP diastolic 50–54; PULSE 72–83; RESP 14–22; TEMP 36.3–37.7; O2SAT 93–96
--- NOTE | 2020-12-17 01:37 | NURSING ---
Xray results reported to Dr. Merrill. New orders received for Covid-19 test and respiratory panel. tan room supervisor notified.
--- NOTE | 2020-12-17 02:57 | NURSING ---
Patient placed on droplet precautions
[2020-12-17] MEDS: traMADol 50 MG Tablet PO ×2 (06:18→14:41)
[2020-12-17] MEDS: Pregabalin 50 MG Capsule 100 MG PO (06:18)
[2020-12-17] MEDS: Finasteride 5 MG Tablet PO (06:19)
[2020-12-17] MEDS: Potassium Chloride Oral Tablet 20 MEQ PO ×3 (06:19→20:26)
[2020-12-17] MEDS: Polyethylene Glycol 3350 17 GM PACKET PO ×2 (06:19→17:36)
[2020-12-17] MEDS: Senna/Docusate Sodium 1 Tablet 2 TABLET PO ×2 (06:19→17:38)
[2020-12-17] MEDS: NYSTATIN 500,000 UNIT/5 ML UDC 500000 UNIT PO ×4 (06:19→20:28)
[2020-12-17] MEDS: Furosemide 40 MG Tablet PO (06:19)
[2020-12-17] MEDS: Pantoprazole Sodium 40 MG Tablet PO (06:19)
[2020-12-17] MEDS: guaiFENesin 600 MG Tablet PO ×2 (06:19→17:37)
[2020-12-17] MEDS: DULoxetine Hcl 30 MG Capsule PO (06:19)
[2020-12-17] MEDS: Cefdinir 300 MG Capsule PO ×2 (06:21→17:37)
--- NOTE | 2020-12-17 06:25 | NURSING ---
Held AM dose of Metoprolol d/t low blood pressure. 102/50. RN aware.
[2020-12-17 06:26] LABS: Bedside Glucose 121 mg/dL (70-110)
[2020-12-17] MEDS: Ipratropium/Albuterol Sulfate 3 ML AMPUL.NEB INHALATION ×2 (07:15→19:03)
[2020-12-17] MEDS: Amiodarone 200 MG Tablet PO (09:53)
[2020-12-17] MEDS: levETIRAcetam 1,000 MG Tablet 1000 MG PO ×2 (09:58→20:27)
[2020-12-17] MEDS: levETIRAcetam 500 MG Tablet PO (09:58)
[2020-12-17] MEDS: 0.9% Normal Saline 1,000 ML 75 ML IV ×2 (10:02→23:24)
--- NOTE | 2020-12-17 10:03 | NURSING ---
all care given in room. pt in precautions.
[2020-12-17] MEDS: Menthol/Lanolin/Calamine/Znox 113 GM Tube 1 APPLIC TOPICAL ×2 (10:17→20:24)
[2020-12-17] MEDS: Nystatin Powder 15gm Bottle 1 APPLIC TOPICAL ×2 (10:17→20:24)
--- NOTE | 2020-12-17 10:19 | NURSING ---
PT BRING UP THICK BROWN SPUTUM. RN AWARE
[2020-12-17] MEDS: metFORMIN HCl 500 MG Tablet PO (12:11)
--- NOTE | 2020-12-17 16:56 | CHAPLAIN ---
Type of Pastoral Visit _x__ Initial Visit ___ Follow-up Visit ___ On-call Visit ___ General Patient Visit ___ Spiritual Assessment ___ Family Conference ___ Bereavement ___ Rapid Response ___ Code Blue ___ Other (describe below) Pastoral Care Referral From _x__ Patient ___ Family ___ Nurse ___ Physician ___ Skein Inspector ___ Project Manager Process Development ___ Other (describe below) Sacrament/Intervention _x__ Active listening ___ Anointing ___ Hinduism ___ Bereavement ___ Communion ___ [place] exploration ___ ___ Life review _x__ Prayer ___ Reconciliation ___ Sacrament of Sick _x__ Supportive presence ___ Wedding ___ Other (describe below) Pastoral Comments patient was able to follow the conversation but was limited in verbal responses; pt showed difficulty in thinking of the answers he wanted to say; pt did say that 'prayer is accepted anytime'; also this coverage specialist continued a conversation to occupy pt for a short time
[2020-12-17] MEDS: Budesonide Respules 0.5 MG/2 ML AMPUL.NEB. INHALATION (19:03)
[2020-12-17] MEDS: Atorvastatin Calcium 40 MG Tablet PO (20:27)
[2020-12-17] MEDS: Topiramate 200 MG Tablet PO (20:28)
[2020-12-17] MEDS: MELATONIN 10 MG TABLET PO (20:28)
[2020-12-17] MEDS: Pregabalin 50 MG Capsule 200 MG PO (20:32)
[2020-12-17] MEDS: Azithromycin 250 MG Tablet PO (20:32)
[2020-12-17] MEDS: Tamsulosin HCl 0.4 MG Capsule PO (20:32)
[2020-12-18] VITALS (7 sets, daily range): BP systolic 109–124; BP diastolic 50–58; PULSE 74–83; RESP 16–21; TEMP 35.9; O2SAT 94–96
[2020-12-18] MEDS: Polyethylene Glycol 3350 17 GM PACKET PO ×2 (06:12→17:22)
[2020-12-18] MEDS: Nystatin Powder 15gm Bottle 1 APPLIC TOPICAL ×2 (06:12→20:33)
[2020-12-18] MEDS: Menthol/Lanolin/Calamine/Znox 113 GM Tube 1 APPLIC TOPICAL ×2 (06:12→20:32)
[2020-12-18] MEDS: Potassium Chloride Oral Tablet 20 MEQ PO ×3 (06:13→20:31)
[2020-12-18] MEDS: Furosemide 40 MG Tablet PO (06:13)
[2020-12-18] MEDS: DULoxetine Hcl 30 MG Capsule PO (06:13)
[2020-12-18] MEDS: guaiFENesin 600 MG Tablet PO ×2 (06:14→17:22)
[2020-12-18] MEDS: NYSTATIN 500,000 UNIT/5 ML UDC 500000 UNIT PO ×4 (06:14→20:29)
[2020-12-18] MEDS: Cefdinir 300 MG Capsule PO ×2 (06:14→17:22)
[2020-12-18] MEDS: Finasteride 5 MG Tablet PO (06:14)
[2020-12-18] MEDS: Senna/Docusate Sodium 1 Tablet 2 TABLET PO ×2 (06:15→17:22)
[2020-12-18] MEDS: Pantoprazole Sodium 40 MG Tablet PO (06:15)
[2020-12-18] MEDS: Metoprolol(XL)Succ 25 MG Tablet PO (06:15)
[2020-12-18] MEDS: Pregabalin 50 MG Capsule 100 MG PO (06:20)
[2020-12-18 06:26] LABS: Bedside Glucose 110 mg/dL (70-110)
[2020-12-18] MEDS: metFORMIN HCl 500 MG Tablet PO (08:42)
[2020-12-18] MEDS: Amiodarone 200 MG Tablet PO (08:42)
[2020-12-18] MEDS: levETIRAcetam 1,000 MG Tablet 1000 MG PO ×2 (09:39→20:32)
[2020-12-18] MEDS: levETIRAcetam 500 MG Tablet PO (09:39)
[2020-12-18] MEDS: Acetaminophen 500 MG Tablet 1000 MG PO (09:44)
[2020-12-18] MEDS: traMADol 50 MG Tablet PO ×2 (09:44→20:30)
--- NOTE | 2020-12-18 09:52 | NURSING ---
this nurse helped therapy get pt up from bed to recliner. while walking pt oxygen dropped down to 83% on 3L. sat pt down and and bumped o2 up to 5L till pt recovered then turned back down to 3l. pt now holding at 94% at 3L. rn aware.
--- NOTE | 2020-12-18 11:30 | NURSING ---
THIS NURSE IN PT ROOM AND PT COUGHING. PT BROUGHT [facility] A SMALL [facility]LOOD [facility]. RN AWARE.
[2020-12-18] MEDS: 0.9% Normal Saline 1,000 ML 75 ML IV (12:42)
--- NOTE | 2020-12-18 13:53 | NURSING ---
per orders,need sputum sample from pt.
--- NOTE | 2020-12-18 14:58 | NURSING ---
PT RESTING IN BED,HEELS FLOATED. SHEILA ARMS ELEVATED WITH PILLOWS DUE TO SWELLING. MOUTH CARE DONE. 02 AT 3L.
--- NOTE | 2020-12-18 15:00 | NURSING ---
SPUTUM SAMPLE COLLECTED AND SENT.
--- NOTE | 2020-12-18 15:56 | NURSING ---
CALLED AND UPDATED ON PT. THANKED THIS NURSE.
[2020-12-18] MEDS: Ipratropium/Albuterol Sulfate 3 ML AMPUL.NEB INHALATION (18:50)
[2020-12-18] MEDS: Pregabalin 50 MG Capsule 200 MG PO (20:29)
[2020-12-18] MEDS: Topiramate 200 MG Tablet PO (20:30)
[2020-12-18] MEDS: MELATONIN 10 MG TABLET PO (20:30)
[2020-12-18] MEDS: Atorvastatin Calcium 40 MG Tablet PO (20:31)
[2020-12-18] MEDS: Azithromycin 250 MG Tablet PO (20:31)
[2020-12-18] MEDS: Tamsulosin HCl 0.4 MG Capsule PO (20:31)
[2020-12-19] MEDS: 0.9% Normal Saline 1,000 ML 75 ML IV ×2 (02:38→15:23)
[2020-12-19 06:00] VITALS: BP 108/53; PULSE 75; TEMP 36.8; O2SAT 96
[2020-12-19] MEDS: Polyethylene Glycol 3350 17 GM PACKET PO ×2 (06:19→17:41)
[2020-12-19] MEDS: Pantoprazole Sodium 40 MG Tablet PO (06:20)
[2020-12-19] MEDS: guaiFENesin 600 MG Tablet PO ×2 (06:20→17:42)
[2020-12-19] MEDS: Furosemide 40 MG Tablet PO (06:21)
[2020-12-19] MEDS: Cefdinir 300 MG Capsule PO ×2 (06:21→17:42)
[2020-12-19] MEDS: Senna/Docusate Sodium 1 Tablet 2 TABLET PO ×2 (06:21→17:42)
[2020-12-19] MEDS: DULoxetine Hcl 30 MG Capsule PO (06:22)
[2020-12-19] MEDS: Finasteride 5 MG Tablet PO (06:22)
[2020-12-19] MEDS: Potassium Chloride Oral Tablet 20 MEQ PO ×3 (06:22→21:02)
[2020-12-19] MEDS: NYSTATIN 500,000 UNIT/5 ML UDC 500000 UNIT PO ×4 (06:23→21:14)
[2020-12-19] MEDS: Menthol/Lanolin/Calamine/Znox 113 GM Tube 1 APPLIC TOPICAL ×2 (06:23→21:07)
[2020-12-19] MEDS: Nystatin Powder 15gm Bottle 1 APPLIC TOPICAL ×2 (06:23→21:07)
[2020-12-19] MEDS: Pregabalin 50 MG Capsule 100 MG PO (06:26)
--- NOTE | 2020-12-19 06:32 | NURSING ---
Toprol XL held due to low BP.
[2020-12-19 06:40] LABS: Bedside Glucose 92 mg/dL (70-110)
[2020-12-19 07:35] VITALS: PULSE 85; RESP 16; O2SAT 97
[2020-12-19] MEDS: Budesonide Respules 0.5 MG/2 ML AMPUL.NEB. INHALATION (07:35)
[2020-12-19] MEDS: Ipratropium/Albuterol Sulfate 3 ML AMPUL.NEB INHALATION (07:35)
[2020-12-19 08:30] VITALS: BP 98/48; PULSE 81
[2020-12-19] MEDS: Amiodarone 200 MG Tablet PO (08:32)
[2020-12-19] MEDS: metFORMIN HCl 500 MG Tablet PO (08:33)
[2020-12-19] MEDS: Pregabalin 50 MG Capsule PO (08:58)
--- NOTE | 2020-12-19 09:08 | NURSING ---
business supervisor nurse administered 50mg of 0600 100mg lyrica dose d/t accudose only having one 50mg capsule. Pharmacy sent up another 50mg dose of lyrica to administer to total the 100mg order. 1x dose of 50mg lyrica administered per order to complete original dose.
[2020-12-19] MEDS: levETIRAcetam 500 MG Tablet PO (09:12)
[2020-12-19] MEDS: levETIRAcetam 1,000 MG Tablet 1000 MG PO ×2 (09:12→21:02)
[2020-12-19 13:42] VITALS: BP 113/68; PULSE 81; RESP 20; TEMP 36.5; O2SAT 95
[2020-12-19 21:00] VITALS: PULSE 87; RESP 20; O2SAT 94
[2020-12-19] MEDS: Pregabalin 50 MG Capsule 200 MG PO (21:01)
[2020-12-19] MEDS: Azithromycin 250 MG Tablet PO (21:01)
[2020-12-19] MEDS: traMADol 50 MG Tablet PO (21:02)
[2020-12-19] MEDS: MELATONIN 10 MG TABLET PO (21:02)
[2020-12-19] MEDS: Tamsulosin HCl 0.4 MG Capsule PO (21:02)
[2020-12-19] MEDS: Atorvastatin Calcium 40 MG Tablet PO (21:03)
[2020-12-19] MEDS: Topiramate 200 MG Tablet PO (21:04)
[2020-12-19] MEDS: Bisacodyl 5 MG Tablet 10 MG PO (21:14)
[2020-12-20 05:25] VITALS: BP 132/65; PULSE 93; O2SAT 95
[2020-12-20] MEDS: Polyethylene Glycol 3350 17 GM PACKET PO ×2 (05:30→17:58)
[2020-12-20 05:31] VITALS: PULSE 93
[2020-12-20] MEDS: Senna/Docusate Sodium 1 Tablet 2 TABLET PO ×2 (05:31→17:55)
[2020-12-20] MEDS: DULoxetine Hcl 30 MG Capsule PO (05:31)
[2020-12-20] MEDS: Cefdinir 300 MG Capsule PO ×2 (05:31→17:55)
[2020-12-20] MEDS: Pregabalin 50 MG Capsule 100 MG PO (05:31)
[2020-12-20] MEDS: Metoprolol(XL)Succ 25 MG Tablet PO (05:31)
[2020-12-20] MEDS: Potassium Chloride Oral Tablet 20 MEQ PO ×3 (05:31→22:15)
[2020-12-20] MEDS: guaiFENesin 600 MG Tablet PO ×2 (05:32→17:55)
[2020-12-20] MEDS: Furosemide 40 MG Tablet PO (05:32)
[2020-12-20] MEDS: Finasteride 5 MG Tablet PO (05:32)
[2020-12-20] MEDS: Pantoprazole Sodium 40 MG Tablet PO (05:32)
[2020-12-20] MEDS: Menthol/Lanolin/Calamine/Znox 113 GM Tube 1 APPLIC TOPICAL ×2 (05:33→22:22)
[2020-12-20] MEDS: Nystatin Powder 15gm Bottle 1 APPLIC TOPICAL ×2 (05:33→22:23)
[2020-12-20] MEDS: NYSTATIN 500,000 UNIT/5 ML UDC 500000 UNIT PO ×4 (05:33→22:23)
[2020-12-20 06:36] LABS: Bedside Glucose 87 mg/dL (70-110)
--- NOTE | 2020-12-20 07:25 | NURSING ---
Updated Dr. Merrill that patient's edema increased overnight, has mild pitting edema to upper legs and flank as well as BLE. Order to DC IVF and get routine labs for today.
[2020-12-20 07:40] VITALS: PULSE 92; RESP 20; O2SAT 95
[2020-12-20] MEDS: Ipratropium/Albuterol Sulfate 3 ML AMPUL.NEB INHALATION ×2 (07:40→19:40)
[2020-12-20] MEDS: Budesonide Respules 0.5 MG/2 ML AMPUL.NEB. INHALATION ×2 (07:40→19:40)
[2020-12-20] MEDS: levETIRAcetam 1,000 MG Tablet 1000 MG PO ×2 (09:04→22:16)
[2020-12-20] MEDS: levETIRAcetam 500 MG Tablet PO (09:04)
[2020-12-20] MEDS: Amiodarone 200 MG Tablet PO (09:04)
[2020-12-20] MEDS: metFORMIN HCl 500 MG Tablet PO (09:05)
[2020-12-20 10:07] LABS: Differential Indicated MANUAL DIFF; Hemoglobin 8.7 g/dL (13.0-16.5); Mean Corp Hgb Conc 31.1 g/dL (32-36); Mean Corpuscular Hgb 31.6 pg (27.0-32.0); Mean Corpuscular Volume 101.8 fL (80-94); Mean Platelet Vol. 9.2 fl (6.2-12.0); POSITIVE COUNT YES; POSITIVE MORPHOLOGY YES; Platelet Count 288 K/mm3 (150-450); RBC Distribution Width CV 13.2 % (11.6-14.6); RBC Distribution Width SD 48.7 fl (35.1-43.9); Red Blood Count 2.75 M/mm3 (4.6-6.2)
[2020-12-20 10:24] LABS: Anion Gap 6 (5-15); BUN 14 mg/dL (7-18); BUN/Creat Ratio 15.3 RATIO (10-20); Calcium,Total 8.5 mg/dL (8.5-10.1); Chloride 101 mmol/L (98-107); Creatinine, Serum 0.92 mg/dL (0.70-1.30); EST Glomerular Filtration Rate 84 mL/min (>60); Est Glom Filt Rate - Afr Amer 101 mL/min (>60); Estimated Creatinine Clearance 65.93 ml/min; Glucose 80 mg/dL (74-106); Potassium 4.2 mmol/L (3.5-5.1); Sodium Level 134 mmol/L (136-145)
[2020-12-20 10:37] LABS: Eosinophil 1 % (0-5); Lymphocyte 18 % (19-41); Metamyelocyte 2 % (0-1); Monocyte 3 % (0-10); Myelocyte 1 % (0-0); Neutrophil-Segmented 75 % (47-70); Total Cells Counted 100 (MANUAL DIFF)
[2020-12-20 10:38] LABS: Hypochromasia 1+; Macrocytosis 1+; Platelet Estimate ADEQUATE (ADEQ); Polychromasia 1+
[2020-12-20 10:39] LABS: Absolute Lymphocyte Count 2.15 X10^3/uL (0.83-4.51)
[2020-12-20] MEDS: Bisacodyl 5 MG Tablet 10 MG PO (12:55)
[2020-12-20 13:36] VITALS: BP 117/52; PULSE 87; RESP 18; TEMP 36.4; O2SAT 95
[2020-12-20 17:15] VITALS: O2SAT 93
[2020-12-20 19:40] VITALS: PULSE 80; RESP 20; O2SAT 98
--- NOTE | 2020-12-20 21:54 | RAD_ITS ---
INDICATION: worsening crackles EXAMINATION/TECHNIQUE: X-RAY - XR Chest 2 Views COMPARISON: 12/16/2020. FINDINGS: Slight interval worsening of interstitial opacities, mostly in the right lung. Sternal cerclage wires and vascular clips are present from a prior sternotomy and coronary artery bypass graft procedure (CABG). Questionable trace bilateral pleural effusions. No pneumothorax. No acute osseous abnormalities. RAD/Chest PA and Lateral IMPRESSION: Slight interval worsening of interstitial opacities, mostly in the right lung. Questionable trace bilateral pleural effusions. Electronically Signed: Declan Cruz MD at 23:38 EDT Tel , Service support ,
--- NOTE | 2020-12-20 22:02 | NURSING ---
Patient continues to decline. Rhonchi heard in lungs. Patient has moist productive cough. Patient states, I just feel worse. RN updated.
--- NOTE | 2020-12-20 22:08 | NURSING ---
Patient continues to have wet cough, rhonchi and crackles on auscultation, updated Dr. Merrill w/ verbal order for cxray and increase frequency of duoneb treatments.
[2020-12-20] MEDS: Topiramate 200 MG Tablet PO (22:14)
[2020-12-20] MEDS: MELATONIN 10 MG TABLET PO (22:15)
[2020-12-20] MEDS: Azithromycin 250 MG Tablet PO (22:15)
[2020-12-20] MEDS: Tamsulosin HCl 0.4 MG Capsule PO (22:15)
[2020-12-20] MEDS: Pregabalin 50 MG Capsule 200 MG PO (22:19)
[2020-12-20] MEDS: Atorvastatin Calcium 40 MG Tablet PO (22:19)
[2020-12-21] VITALS (7 sets, daily range): BP systolic 123–136; BP diastolic 55–66; PULSE 68–89; RESP 16–20; TEMP 36.2; O2SAT 92–97
[2020-12-21] MEDS: Pregabalin 50 MG Capsule 100 MG PO (05:07)
[2020-12-21] MEDS: Senna/Docusate Sodium 1 Tablet 2 TABLET PO ×2 (05:08→17:00)
[2020-12-21] MEDS: Furosemide 40 MG Tablet PO (05:08)
[2020-12-21] MEDS: Pantoprazole Sodium 40 MG Tablet PO (05:08)
[2020-12-21] MEDS: Cefdinir 300 MG Capsule PO (05:08)
[2020-12-21] MEDS: guaiFENesin 600 MG Tablet PO ×2 (05:08→17:00)
[2020-12-21] MEDS: Finasteride 5 MG Tablet PO (05:08)
[2020-12-21] MEDS: NYSTATIN 500,000 UNIT/5 ML UDC 500000 UNIT PO ×4 (05:08→20:11)
[2020-12-21] MEDS: Polyethylene Glycol 3350 17 GM PACKET PO ×2 (05:08→16:55)
[2020-12-21] MEDS: Metoprolol(XL)Succ 25 MG Tablet PO (05:09)
[2020-12-21] MEDS: DULoxetine Hcl 30 MG Capsule PO (05:09)
[2020-12-21] MEDS: Potassium Chloride Oral Tablet 20 MEQ PO ×3 (05:09→20:08)
[2020-12-21] MEDS: Menthol/Lanolin/Calamine/Znox 113 GM Tube 1 APPLIC TOPICAL ×2 (05:14→20:06)
[2020-12-21] MEDS: Nystatin Powder 15gm Bottle 1 APPLIC TOPICAL ×2 (05:14→20:11)
--- NOTE | 2020-12-21 05:22 | NURSING ---
Respiratory called at this time to see if patient could have DuoNeb treatment. No answer. Will try again later.
[2020-12-21 06:41] LABS: Bedside Glucose 114 mg/dL (70-110)
[2020-12-21] MEDS: Amiodarone 200 MG Tablet PO (08:43)
[2020-12-21] MEDS: metFORMIN HCl 500 MG Tablet PO (08:43)
[2020-12-21] MEDS: 0.9% Saline Lock 10 ML Syringe IV (08:58)
[2020-12-21] MEDS: levETIRAcetam 500 MG Tablet PO (09:04)
[2020-12-21] MEDS: levETIRAcetam 1,000 MG Tablet 1000 MG PO ×2 (09:04→20:09)
[2020-12-21] MEDS: Piperacil/Tazobactam 3.375 GM Q8 PREMIX IV ×3 (10:24→20:12)
[2020-12-21] MEDS: Ipratropium/Albuterol Sulfate 3 ML AMPUL.NEB INHALATION ×2 (10:35→14:00)
[2020-12-21] MEDS: 0.9% Normal Saline 250 ML IV.SOLN. IV (10:37)
[2020-12-21] MEDS: Acetaminophen 500 MG Tablet 1000 MG PO (11:24)
[2020-12-21 13:36] LABS: Pathologist Review Reviewed
--- NOTE | 2020-12-21 13:56 | NURSING ---
No answer at number for , Gabrielle.
--- NOTE | 2020-12-21 15:48 | NURSING ---
Staff do not feel resident is well enough to get the Covid Booster.
[2020-12-21] MEDS: Glucerna Shake 120 ML LIQUID PO ×2 (17:26→20:08)
[2020-12-21] MEDS: Tamsulosin HCl 0.4 MG Capsule PO (20:08)
[2020-12-21] MEDS: Pregabalin 50 MG Capsule 200 MG PO (20:10)
[2020-12-21] MEDS: MELATONIN 10 MG TABLET PO (20:10)
[2020-12-21] MEDS: Atorvastatin Calcium 40 MG Tablet PO (20:10)
[2020-12-21] MEDS: Topiramate 200 MG Tablet PO (20:12)
[2020-12-22] VITALS (7 sets, daily range): BP systolic 112–117; BP diastolic 43–54; PULSE 74–88; RESP 14–18; TEMP 36; O2SAT 94–96
[2020-12-22] MEDS: Polyethylene Glycol 3350 17 GM PACKET PO ×2 (05:18→18:05)
[2020-12-22] MEDS: Piperacil/Tazobactam 3.375 GM Q8 PREMIX IV ×3 (05:18→20:41)
[2020-12-22] MEDS: Glucerna Shake 120 ML LIQUID PO ×4 (05:18→20:40)
[2020-12-22] MEDS: guaiFENesin 600 MG Tablet PO ×2 (05:19→18:01)
[2020-12-22] MEDS: Menthol/Lanolin/Calamine/Znox 113 GM Tube 1 APPLIC TOPICAL ×2 (05:19→20:43)
[2020-12-22] MEDS: Pantoprazole Sodium 40 MG Tablet PO (05:19)
[2020-12-22] MEDS: Senna/Docusate Sodium 1 Tablet 2 TABLET PO ×2 (05:19→18:01)
[2020-12-22] MEDS: DULoxetine Hcl 30 MG Capsule PO (05:19)
[2020-12-22] MEDS: Furosemide 40 MG Tablet PO (05:19)
[2020-12-22] MEDS: Finasteride 5 MG Tablet PO (05:19)
[2020-12-22] MEDS: NYSTATIN 500,000 UNIT/5 ML UDC 500000 UNIT PO ×4 (05:19→20:40)
[2020-12-22] MEDS: Nystatin Powder 15gm Bottle 1 APPLIC TOPICAL ×2 (05:20→20:42)
[2020-12-22] MEDS: Pregabalin 50 MG Capsule 100 MG PO (05:23)
[2020-12-22] MEDS: Metoprolol(XL)Succ 25 MG Tablet PO (05:39)
[2020-12-22 06:01] LABS: Hematocrit 28.4 % (40-54); Mean Corp Hgb Conc 31.7 g/dL (32-36); Mean Corpuscular Hgb 31.5 pg (27.0-32.0); Mean Corpuscular Volume 99.3 fL (80-94); Mean Platelet Vol. 9.1 fl (6.2-12.0); POSITIVE COUNT YES; POSITIVE MORPHOLOGY YES; Platelet Count 326 K/mm3 (150-450); RBC Distribution Width CV 13.2 % (11.6-14.6); RBC Distribution Width SD 47.7 fl (35.1-43.9); Red Blood Count 2.86 M/mm3 (4.6-6.2); White Blood Count 12.1 K/mm3 (4.4-11.0)
[2020-12-22 06:05] LABS: Bedside Glucose 103 mg/dL (70-110)
[2020-12-22 06:10] LABS: Differential Indicated MANUAL DIFF
[2020-12-22 06:34] LABS: Anion Gap 5 (5-15); BUN 14 mg/dL (7-18); BUN/Creat Ratio 14.3 RATIO (10-20); Calcium,Total 8.2 mg/dL (8.5-10.1); Chloride 102 mmol/L (98-107); Creatinine, Serum 0.98 mg/dL (0.70-1.30); EST Glomerular Filtration Rate 78 mL/min (>60); Est Glom Filt Rate - Afr Amer 94 mL/min (>60); Glucose 94 mg/dL (74-106); Potassium 4.1 mmol/L (3.5-5.1); Sodium Level 134 mmol/L (136-145)
[2020-12-22 06:42] LABS: Absolute Neutrophil Count 9.1 X10^3/uL (2.0-7.7)
[2020-12-22 06:45] LABS: Absolute Lymphocyte Count 1.45 X10^3/uL (0.83-4.51); Lymphocyte 12 % (19-41); Myelocyte 3 % (0-0); Neutrophil-Band 4 % (0-5); Neutrophil-Segmented 71 % (47-70); Promyelocyte 2 % (0-0)
[2020-12-22 06:46] LABS: Atypical Lymphocyte 1+ %; Monocyte 8 % (0-10)
[2020-12-22] MEDS: Potassium Chloride Oral Tablet 20 MEQ PO ×3 (06:47→20:41)
[2020-12-22 06:48] LABS: Platelet Estimate ADEQUATE (ADEQ); Polychromasia 1+; Red Cell Morphology NORM C+C NORMAL (NORM C&C)
[2020-12-22] MEDS: Ipratropium/Albuterol Sulfate 3 ML AMPUL.NEB INHALATION ×3 (07:05→20:19)
[2020-12-22] MEDS: Amiodarone 200 MG Tablet PO (08:27)
[2020-12-22] MEDS: metFORMIN HCl 500 MG Tablet PO (08:28)
[2020-12-22] MEDS: levETIRAcetam 1,000 MG Tablet 1000 MG PO ×2 (10:28→20:43)
[2020-12-22] MEDS: levETIRAcetam 500 MG Tablet PO (10:28)
[2020-12-22] MEDS: Tuberculin,Purif.prot.deriv. 50 TU/ML Vial 0.1 ML ID (10:33)
[2020-12-22] MEDS: 0.9% Saline Lock 10 ML Syringe IV (13:33)
[2020-12-22 13:46] LABS: Pathologist Review Reviewed
[2020-12-22] MEDS: Budesonide Respules 0.5 MG/2 ML AMPUL.NEB. INHALATION ×2 (15:10→20:19)
[2020-12-22] MEDS: Atorvastatin Calcium 40 MG Tablet PO (20:41)
[2020-12-22] MEDS: MELATONIN 10 MG TABLET PO (20:41)
[2020-12-22] MEDS: Topiramate 200 MG Tablet PO (20:41)
[2020-12-22] MEDS: Tamsulosin HCl 0.4 MG Capsule PO (20:41)
[2020-12-22] MEDS: Pregabalin 50 MG Capsule 200 MG PO (20:52)
[2020-12-23] MEDS: Piperacil/Tazobactam 3.375 GM Q8 PREMIX IV ×3 (05:05→20:46)
[2020-12-23] MEDS: Nystatin Powder 15gm Bottle 1 APPLIC TOPICAL ×2 (05:10→20:53)
[2020-12-23] MEDS: DULoxetine Hcl 30 MG Capsule PO (05:10)
[2020-12-23] MEDS: Potassium Chloride Oral Tablet 20 MEQ PO ×3 (05:10→20:51)
[2020-12-23] MEDS: Menthol/Lanolin/Calamine/Znox 113 GM Tube 1 APPLIC TOPICAL ×2 (05:10→20:49)
[2020-12-23] MEDS: Furosemide 40 MG Tablet PO (05:11)
[2020-12-23] MEDS: NYSTATIN 500,000 UNIT/5 ML UDC 500000 UNIT PO ×4 (05:13→20:53)
[2020-12-23] MEDS: guaiFENesin 600 MG Tablet PO ×2 (05:13→17:22)
[2020-12-23] MEDS: Finasteride 5 MG Tablet PO (05:13)
[2020-12-23] MEDS: Pantoprazole Sodium 40 MG Tablet PO (05:13)
[2020-12-23 05:14] VITALS: BP 123/60; PULSE 95
[2020-12-23] MEDS: Metoprolol(XL)Succ 25 MG Tablet PO (05:14)
[2020-12-23] MEDS: Glucerna Shake 120 ML LIQUID PO ×4 (05:18→20:48)
[2020-12-23] MEDS: Pregabalin 50 MG Capsule 100 MG PO (05:20)
[2020-12-23 06:16] LABS: Bedside Glucose 133 mg/dL (70-110)
[2020-12-23 07:17] VITALS: PULSE 86; RESP 18; O2SAT 97
[2020-12-23] MEDS: Ipratropium/Albuterol Sulfate 3 ML AMPUL.NEB INHALATION ×3 (07:17→15:09)
[2020-12-23] MEDS: Budesonide Respules 0.5 MG/2 ML AMPUL.NEB. INHALATION (07:17)
[2020-12-23] MEDS: Amiodarone 200 MG Tablet PO (08:10)
[2020-12-23] MEDS: metFORMIN HCl 500 MG Tablet PO (08:10)
--- NOTE | 2020-12-23 09:28 | CASEMGMT ---
Social Work IDT met with patient and for care plan meeting. Discussed patient's progress in therapy and nursing. Explained Medicare benefit. Encouraged to contact secondary insurance to ensure copay coverage. Pt on IV ATB until 12/28, remains on O2. Nursing continue to monitor and manage medical changes. Pt having difficulty with appetite. Load Out Supervisor making changes to assist. IDT recommending SNF vs home with and son. Unsure about safety at home. Discussed alternative plan - provided [facility] SNF list with quality and resource data. Pt and prefer [facility] first choice and [facility] second choice. Pt agreeable to SNF if needed. SW to make referrals next week and will discus finances further with . SW to continue to follow to ensure safe DC plan. LATASHA GrayW
[2020-12-23] MEDS: levETIRAcetam 500 MG Tablet PO (10:10)
[2020-12-23] MEDS: levETIRAcetam 1,000 MG Tablet 1000 MG PO ×2 (10:10→20:51)
[2020-12-23] MEDS: traMADol 50 MG Tablet PO (10:22)
--- NOTE | 2020-12-23 10:45 | CASEMGMT ---
Social Work Pt's here asking to speak w/SW. SW met w/ outside of the room in regard to plan for after TCU. had a list of her own medical problems, inquired if we would need this to help TCU staff here understand what she can and cannot do for her . states has cardiac issues, on O2 at night, has sleep apnea among other diagnoses. She states cannot really lift anything. SW explained we do not need to see her medical list of issues, but just based on what she is telling SW it is clear she cannot physically help pt very much and he would need to be very independent to return home. Pt also has diagnosis of dementia which has an impact as well, as explains he does not always understand what she can and cannot do. Their son lives w/them but he also has heart issues and in fact needs to have surgery. We spoke about short term and supervisor intermediates goals. in agreement with referral to [facility] when appropriate, is aware pt cannot stay here for the full Medicare benefit period. SW reviewed with the Medicare benefit for SNF, encouraged her to call their secondary insurance to see if the copay starting on day 21 is covered. SW explained we would work to get pt moved to a jail facility in the community still under the Medicare benefit when appropriate. We then talked about fpc, and if she may want to consider pt going into a senior care supervisor intermediates. mentioned pt has been working with Manish from palliative care for two years, and he has also mentioned this to her. He is out at present and will be back at the end of next week, she wants to speak with him about this. OMID provided to the Medicaid application, reviewed the application with her. OMID explained that once the Medicare benefit is exhausted, if pt were to stay in a facility supervisor intermediates it would be private pay if they can afford it, or applying for Medicaid to cover the cost. is unsure of their financial situation, wants to look further at the Medicaid application and speak w/Manish from palliative care before completing it. SW explained if she does want to complete it she can do it on her own or can bring it back and SW here can assist her. states understanding. SW will continue to follow, will make referral to [facility] for pt when appropriate, and assist with Medicaid application as needed. ISRA Marquez
[2020-12-23 11:22] VITALS: PULSE 80; RESP 18
[2020-12-23] MEDS: 0.9% Saline Lock 10 ML Syringe IV ×2 (13:40→14:12)
[2020-12-23 14:09] VITALS: BP 124/54; PULSE 89; RESP 18; TEMP 35.9; O2SAT 96
--- NOTE | 2020-12-23 14:22 | NURSING ---
Upon IV assessment this nurse noticed NS pooling inside tegaderm. This nurse stopped IV pump and continued to assess area. Tegaderm was removed and arm was dried and NS IV push slowly administered, NS still leaking around IV cannula. No s/s of infiltration, pt denies pain and discomfort. Saline lock D/c and restarted in LFA, flushes easily, no pain or discomfort.
--- NOTE | 2020-12-23 14:44 | MDS.RN ---
Information for the mds was obtained from review of the clinical record, interview of resident, staff, and direct observation of resident's care.
[2020-12-23] MEDS: Acetaminophen 500 MG Tablet 1000 MG PO (14:56)
[2020-12-23 15:09] VITALS: PULSE 85; RESP 18
[2020-12-23] MEDS: Senna/Docusate Sodium 1 Tablet 2 TABLET PO (17:22)
[2020-12-23] MEDS: Polyethylene Glycol 3350 17 GM PACKET PO (17:22)
[2020-12-23] MEDS: Pregabalin 50 MG Capsule 200 MG PO (20:50)
[2020-12-23] MEDS: Tamsulosin HCl 0.4 MG Capsule PO (20:51)
[2020-12-23] MEDS: Atorvastatin Calcium 40 MG Tablet PO (20:52)
[2020-12-23] MEDS: MELATONIN 10 MG TABLET PO (20:53)
[2020-12-23] MEDS: Topiramate 200 MG Tablet PO (20:53)
[2020-12-24] VITALS (7 sets, daily range): BP systolic 114–117; BP diastolic 53–59; PULSE 72–78; RESP 14–22; TEMP 36.7; O2SAT 95–97
[2020-12-24] MEDS: Piperacil/Tazobactam 3.375 GM Q8 PREMIX IV ×3 (05:34→21:29)
[2020-12-24] MEDS: Glucerna Shake 120 ML LIQUID PO ×3 (05:38→21:25)
[2020-12-24] MEDS: Pregabalin 50 MG Capsule 100 MG PO (05:39)
[2020-12-24] MEDS: Polyethylene Glycol 3350 17 GM PACKET PO ×2 (05:40→17:48)
[2020-12-24] MEDS: Finasteride 5 MG Tablet PO (05:41)
[2020-12-24] MEDS: Pantoprazole Sodium 40 MG Tablet PO (05:41)
[2020-12-24] MEDS: Senna/Docusate Sodium 1 Tablet 2 TABLET PO ×2 (05:41→17:48)
[2020-12-24] MEDS: guaiFENesin 600 MG Tablet PO ×2 (05:42→17:48)
[2020-12-24] MEDS: Metoprolol(XL)Succ 25 MG Tablet PO (05:42)
[2020-12-24] MEDS: DULoxetine Hcl 30 MG Capsule PO (05:43)
[2020-12-24] MEDS: Potassium Chloride Oral Tablet 20 MEQ PO ×3 (05:43→21:25)
[2020-12-24] MEDS: Furosemide 40 MG Tablet PO (05:43)
[2020-12-24] MEDS: Nystatin Powder 15gm Bottle 1 APPLIC TOPICAL ×2 (05:44→21:36)
[2020-12-24] MEDS: NYSTATIN 500,000 UNIT/5 ML UDC 500000 UNIT PO ×4 (05:44→21:26)
[2020-12-24 06:26] LABS: Bedside Glucose 84 mg/dL (70-110)
[2020-12-24] MEDS: Budesonide Respules 0.5 MG/2 ML AMPUL.NEB. INHALATION ×2 (06:58→19:05)
[2020-12-24] MEDS: Ipratropium/Albuterol Sulfate 3 ML AMPUL.NEB INHALATION ×2 (06:58→11:00)
[2020-12-24] MEDS: metFORMIN HCl 500 MG Tablet PO (08:35)
[2020-12-24] MEDS: Amiodarone 200 MG Tablet PO (08:36)
[2020-12-24] MEDS: levETIRAcetam 500 MG Tablet PO (09:49)
[2020-12-24] MEDS: levETIRAcetam 1,000 MG Tablet 1000 MG PO ×2 (09:49→21:26)
--- NOTE | 2020-12-24 13:01 | CPS ---
Pt takes Albuterol prn @home and doesn't want aerosol scheduled. D/c'd duoneb per protocol and pt request. Albuterol MDI is prn and he knows to ask for it if he needs it.
[2020-12-24] MEDS: 0.9% Saline Lock 10 ML Syringe IV (14:09)
[2020-12-24] MEDS: Pregabalin 50 MG Capsule 200 MG PO (21:25)
[2020-12-24] MEDS: Tamsulosin HCl 0.4 MG Capsule PO (21:26)
[2020-12-24] MEDS: MELATONIN 10 MG TABLET PO (21:26)
[2020-12-24] MEDS: Atorvastatin Calcium 40 MG Tablet PO (21:26)
[2020-12-24] MEDS: Topiramate 200 MG Tablet PO (21:27)
[2020-12-24] MEDS: Menthol/Lanolin/Calamine/Znox 113 GM Tube 1 APPLIC TOPICAL (21:37)
[2020-12-25 06:00] VITALS: BP 113/50; PULSE 76
[2020-12-25] MEDS: Pregabalin 50 MG Capsule 100 MG PO (06:00)
[2020-12-25] MEDS: Metoprolol(XL)Succ 25 MG Tablet PO (06:00)
[2020-12-25] MEDS: Pantoprazole Sodium 40 MG Tablet PO (06:00)
[2020-12-25] MEDS: DULoxetine Hcl 30 MG Capsule PO (06:00)
[2020-12-25] MEDS: NYSTATIN 500,000 UNIT/5 ML UDC 500000 UNIT PO ×2 (06:01→12:54)
[2020-12-25] MEDS: Piperacil/Tazobactam 3.375 GM Q8 PREMIX IV ×3 (06:01→22:56)
[2020-12-25] MEDS: Furosemide 40 MG Tablet PO (06:01)
[2020-12-25] MEDS: Finasteride 5 MG Tablet PO (06:01)
[2020-12-25] MEDS: Senna/Docusate Sodium 1 Tablet 2 TABLET PO ×2 (06:01→16:32)
[2020-12-25] MEDS: guaiFENesin 600 MG Tablet PO ×2 (06:01→16:32)
[2020-12-25] MEDS: Glucerna Shake 120 ML LIQUID PO ×4 (06:02→22:50)
[2020-12-25] MEDS: Menthol/Lanolin/Calamine/Znox 113 GM Tube 1 APPLIC TOPICAL ×2 (06:06→22:58)
[2020-12-25] MEDS: Nystatin Powder 15gm Bottle 1 APPLIC TOPICAL ×2 (06:06→22:58)
[2020-12-25 06:20] LABS: Bedside Glucose 97 mg/dL (70-110)
[2020-12-25 07:10] VITALS: PULSE 84; RESP 18; O2SAT 97
[2020-12-25] MEDS: Budesonide Respules 0.5 MG/2 ML AMPUL.NEB. INHALATION ×2 (07:10→20:00)
[2020-12-25] MEDS: Amiodarone 200 MG Tablet PO (07:46)
[2020-12-25] MEDS: Potassium Chloride Oral Tablet 20 MEQ PO ×3 (07:46→16:33)
[2020-12-25] MEDS: metFORMIN HCl 500 MG Tablet PO (07:47)
[2020-12-25] MEDS: levETIRAcetam 500 MG Tablet PO (09:29)
[2020-12-25] MEDS: levETIRAcetam 1,000 MG Tablet 1000 MG PO ×2 (09:30→22:53)
[2020-12-25] MEDS: 0.9% Saline Lock 10 ML Syringe IV (09:30)
[2020-12-25 15:20] VITALS: BP 132/61; PULSE 87; RESP 18; TEMP 36.3; O2SAT 96
[2020-12-25] MEDS: Polyethylene Glycol 3350 17 GM PACKET PO (16:32)
[2020-12-25 20:00] VITALS: PULSE 86; RESP 18; O2SAT 99
[2020-12-25] MEDS: Pregabalin 50 MG Capsule 200 MG PO (22:52)
[2020-12-25] MEDS: Tamsulosin HCl 0.4 MG Capsule PO (22:53)
[2020-12-25] MEDS: MELATONIN 10 MG TABLET PO (22:54)
[2020-12-25] MEDS: Atorvastatin Calcium 40 MG Tablet PO (22:55)
[2020-12-25] MEDS: Topiramate 200 MG Tablet PO (22:55)
[2020-12-26 05:30] VITALS: BP 111/50; PULSE 83
[2020-12-26] MEDS: Glucerna Shake 120 ML LIQUID PO ×4 (05:30→21:34)
[2020-12-26] MEDS: Metoprolol(XL)Succ 25 MG Tablet PO (05:30)
[2020-12-26] MEDS: Senna/Docusate Sodium 1 Tablet 2 TABLET PO (05:30)
[2020-12-26] MEDS: Pregabalin 50 MG Capsule 100 MG PO (05:30)
[2020-12-26] MEDS: Finasteride 5 MG Tablet PO (05:31)
[2020-12-26] MEDS: Furosemide 40 MG Tablet PO (05:31)
[2020-12-26] MEDS: DULoxetine Hcl 30 MG Capsule PO (05:31)
[2020-12-26] MEDS: Menthol/Lanolin/Calamine/Znox 113 GM Tube 1 APPLIC TOPICAL ×2 (05:31→21:44)
[2020-12-26] MEDS: Pantoprazole Sodium 40 MG Tablet PO (05:31)
[2020-12-26] MEDS: guaiFENesin 600 MG Tablet PO ×2 (05:31→17:18)
[2020-12-26] MEDS: Nystatin Powder 15gm Bottle 1 APPLIC TOPICAL ×2 (05:32→21:43)
[2020-12-26] MEDS: Piperacil/Tazobactam 3.375 GM Q8 PREMIX IV ×3 (05:35→21:37)
[2020-12-26 06:35] VITALS: PULSE 81; RESP 17; O2SAT 96
[2020-12-26] MEDS: Budesonide Respules 0.5 MG/2 ML AMPUL.NEB. INHALATION ×2 (06:35→19:17)
[2020-12-26 06:45] LABS: Bedside Glucose 118 mg/dL (70-110)
[2020-12-26] MEDS: Amiodarone 200 MG Tablet PO (08:24)
[2020-12-26] MEDS: Potassium Chloride Oral Tablet 20 MEQ PO ×3 (08:24→17:18)
[2020-12-26] MEDS: metFORMIN HCl 500 MG Tablet PO (08:24)
[2020-12-26] MEDS: levETIRAcetam 500 MG Tablet PO (09:05)
[2020-12-26] MEDS: levETIRAcetam 1,000 MG Tablet 1000 MG PO ×2 (09:05→21:36)
[2020-12-26 14:52] VITALS: BP 120/61; PULSE 80; RESP 16; TEMP 36.4; O2SAT 98
[2020-12-26 19:17] VITALS: PULSE 78; RESP 18
[2020-12-26] MEDS: MELATONIN 10 MG TABLET PO (21:35)
[2020-12-26] MEDS: Topiramate 200 MG Tablet PO (21:35)
[2020-12-26] MEDS: Tamsulosin HCl 0.4 MG Capsule PO (21:35)
[2020-12-26] MEDS: Atorvastatin Calcium 40 MG Tablet PO (21:36)
[2020-12-26] MEDS: Pregabalin 50 MG Capsule 200 MG PO (21:36)
[2020-12-27 05:20] VITALS: BP 108/56; PULSE 78; RESP 20; TEMP 36.2; O2SAT 98
[2020-12-27] MEDS: Glucerna Shake 120 ML LIQUID PO ×3 (05:31→22:54)
[2020-12-27] MEDS: Pregabalin 50 MG Capsule 100 MG PO (05:31)
[2020-12-27 05:32] VITALS: BP 108/56; PULSE 78
[2020-12-27] MEDS: Pantoprazole Sodium 40 MG Tablet PO (05:32)
[2020-12-27] MEDS: Metoprolol(XL)Succ 25 MG Tablet PO (05:32)
[2020-12-27] MEDS: Furosemide 40 MG Tablet PO (05:32)
[2020-12-27] MEDS: DULoxetine Hcl 30 MG Capsule PO (05:32)
[2020-12-27] MEDS: guaiFENesin 600 MG Tablet PO ×2 (05:33→17:14)
[2020-12-27] MEDS: Piperacil/Tazobactam 3.375 GM Q8 PREMIX IV ×3 (05:33→22:59)
[2020-12-27] MEDS: Nystatin Powder 15gm Bottle 1 APPLIC TOPICAL ×2 (05:34→22:58)
[2020-12-27] MEDS: Finasteride 5 MG Tablet PO (05:34)
[2020-12-27] MEDS: Menthol/Lanolin/Calamine/Znox 113 GM Tube 1 APPLIC TOPICAL ×2 (05:43→22:53)
[2020-12-27 06:30] LABS: Bedside Glucose 113 mg/dL (70-110)
[2020-12-27] MEDS: metFORMIN HCl 500 MG Tablet PO (08:27)
[2020-12-27] MEDS: Amiodarone 200 MG Tablet PO (08:27)
[2020-12-27] MEDS: Potassium Chloride Oral Tablet 20 MEQ PO ×3 (08:29→17:13)
[2020-12-27 08:30] VITALS: O2SAT 94
[2020-12-27] MEDS: levETIRAcetam 500 MG Tablet PO (09:17)
[2020-12-27] MEDS: levETIRAcetam 1,000 MG Tablet 1000 MG PO ×2 (09:17→22:57)
[2020-12-27 15:01] VITALS: BP 119/68; PULSE 81; RESP 16; TEMP 36.3; O2SAT 98
[2020-12-27] MEDS: Senna/Docusate Sodium 1 Tablet 2 TABLET PO (17:15)
[2020-12-27 18:37] VITALS: PULSE 70; RESP 20
[2020-12-27] MEDS: Budesonide Respules 0.5 MG/2 ML AMPUL.NEB. INHALATION (18:37)
[2020-12-27] MEDS: MELATONIN 10 MG TABLET PO (22:58)
[2020-12-27] MEDS: Topiramate 200 MG Tablet PO (22:58)
[2020-12-27] MEDS: Atorvastatin Calcium 40 MG Tablet PO (23:04)
[2020-12-27] MEDS: Tamsulosin HCl 0.4 MG Capsule PO (23:04)
[2020-12-27] MEDS: Pregabalin 50 MG Capsule 200 MG PO (23:07)
[2020-12-28 06:00] VITALS: BP 108/52; PULSE 74; RESP 20; TEMP 36.3; O2SAT 97
[2020-12-28] MEDS: Glucerna Shake 120 ML LIQUID PO ×4 (06:03→22:01)
[2020-12-28] MEDS: Menthol/Lanolin/Calamine/Znox 113 GM Tube 1 APPLIC TOPICAL (06:04)
[2020-12-28] MEDS: guaiFENesin 600 MG Tablet PO ×2 (06:05→16:48)
[2020-12-28] MEDS: Pantoprazole Sodium 40 MG Tablet PO (06:05)
[2020-12-28] MEDS: Finasteride 5 MG Tablet PO (06:05)
[2020-12-28] MEDS: Pregabalin 50 MG Capsule 100 MG PO (06:05)
[2020-12-28] MEDS: Furosemide 40 MG Tablet PO (06:05)
[2020-12-28] MEDS: DULoxetine Hcl 30 MG Capsule PO (06:06)
[2020-12-28] MEDS: Nystatin Powder 15gm Bottle 1 APPLIC TOPICAL ×2 (06:06→22:00)
[2020-12-28] MEDS: Senna/Docusate Sodium 1 Tablet 2 TABLET PO ×2 (06:06→16:47)
[2020-12-28] MEDS: Piperacil/Tazobactam 3.375 GM Q8 PREMIX IV (06:07)
[2020-12-28 06:08] VITALS: BP 108/52; PULSE 74
[2020-12-28] MEDS: Metoprolol(XL)Succ 25 MG Tablet PO (06:08)
[2020-12-28 06:34] VITALS: PULSE 73; RESP 16; O2SAT 98
[2020-12-28] MEDS: Budesonide Respules 0.5 MG/2 ML AMPUL.NEB. INHALATION ×2 (06:34→18:29)
[2020-12-28 06:55] LABS: Bedside Glucose 85 mg/dL (70-110)
[2020-12-28] MEDS: Amiodarone 200 MG Tablet PO (08:24)
[2020-12-28] MEDS: Potassium Chloride Oral Tablet 20 MEQ PO ×3 (08:24→16:47)
[2020-12-28] MEDS: metFORMIN HCl 500 MG Tablet PO (08:25)
[2020-12-28] MEDS: levETIRAcetam 1,000 MG Tablet 1000 MG PO ×2 (10:03→22:02)
[2020-12-28] MEDS: levETIRAcetam 500 MG Tablet PO (10:03)
[2020-12-28 16:00] VITALS: BP 128/57; PULSE 74; RESP 16; TEMP 36.3; O2SAT 96
[2020-12-28] MEDS: Polyethylene Glycol 3350 17 GM PACKET PO (16:48)
[2020-12-28] MEDS: 0.9% Saline Lock 10 ML Syringe IV (16:49)
[2020-12-28 18:29] VITALS: PULSE 79; RESP 22; O2SAT 99
[2020-12-28] MEDS: Tamsulosin HCl 0.4 MG Capsule PO (22:01)
[2020-12-28] MEDS: Topiramate 200 MG Tablet PO (22:02)
[2020-12-28] MEDS: Atorvastatin Calcium 40 MG Tablet PO (22:02)
[2020-12-28] MEDS: MELATONIN 10 MG TABLET PO (22:02)
[2020-12-28] MEDS: Pregabalin 50 MG Capsule 200 MG PO (22:04)
[2020-12-29] MEDS: Glucerna Shake 120 ML LIQUID PO ×4 (05:19→22:22)
[2020-12-29] MEDS: guaiFENesin 600 MG Tablet PO ×2 (05:20→17:37)
[2020-12-29] MEDS: Pantoprazole Sodium 40 MG Tablet PO (05:20)
[2020-12-29] MEDS: Finasteride 5 MG Tablet PO (05:20)
[2020-12-29] MEDS: DULoxetine Hcl 30 MG Capsule PO (05:21)
[2020-12-29 05:22] VITALS: BP 117/54; PULSE 84
[2020-12-29] MEDS: Metoprolol(XL)Succ 25 MG Tablet PO (05:22)
[2020-12-29] MEDS: Furosemide 40 MG Tablet PO (05:22)
[2020-12-29] MEDS: Nystatin Powder 15gm Bottle 1 APPLIC TOPICAL ×2 (05:23→22:22)
[2020-12-29 05:47] LABS: Absolute Lymphocyte Count 2.18 X10^3/uL (0.83-4.51); Absolute Neutrophil Count 10.4 X10^3/uL (2.0-7.7); Basophil# 0.06 X10^3/uL; Basophil% 0.4 % (0-1); Eosinophil# 0.71 X10^3/uL; Eosinophils% 4.8 % (0-5); Hematocrit 34.2 % (40-54); Lymphocyte # 2.18 X10^3/ul (0.83-4.51); Lymphocyte % 14.8 % (19-41); Mean Corp Hgb Conc 32.2 g/dL (32-36); Mean Corpuscular Hgb 32.9 pg (27.0-32.0); Mean Corpuscular Volume 102.4 fL (80-94); Mean Platelet Vol. 9.2 fl (6.2-12.0); Monocyte# 1.04 X10^3/uL; Monocyte% 7.1 % (0-10); NRBC Flagged by Analyzer 0 % (0-5); Neutrophil # 10.38 X10^3/uL (2.7-7.7); Neutrophil % 70.6 % (47-70); Platelet Count 317 K/mm3 (150-450); RBC Distribution Width CV 14.9 % (11.6-14.6); RBC Distribution Width SD 55.5 fl (35.1-43.9); Red Blood Count 3.34 M/mm3 (4.6-6.2); White Blood Count 14.7 K/mm3 (4.4-11.0)
[2020-12-29 06:01] LABS: Anion Gap 3 (5-15); BUN 17 mg/dL (7-18); BUN/Creat Ratio 13.9 RATIO (10-20); Calcium,Total 8.9 mg/dL (8.5-10.1); Chloride 102 mmol/L (98-107); Creatinine, Serum 1.22 mg/dL (0.70-1.30); EST Glomerular Filtration Rate 60 mL/min (>60); Est Glom Filt Rate - Afr Amer 73 mL/min (>60); Estimated Creatinine Clearance 49.72 ml/min; Glucose 99 mg/dL (74-106); Potassium 4.6 mmol/L (3.5-5.1); Sodium Level 136 mmol/L (136-145)
[2020-12-29 06:36] LABS: Bedside Glucose 89 mg/dL (70-110)
[2020-12-29] MEDS: Pregabalin 50 MG Capsule 100 MG PO (06:55)
[2020-12-29] MEDS: 0.9% Saline Lock 10 ML Syringe IV (08:53)
[2020-12-29] MEDS: Potassium Chloride Oral Tablet 20 MEQ PO ×3 (08:53→17:37)
[2020-12-29] MEDS: metFORMIN HCl 500 MG Tablet PO (08:55)
[2020-12-29] MEDS: Amiodarone 200 MG Tablet PO (08:56)
[2020-12-29 08:59] VITALS: BP 102/57; PULSE 78; PULSE 79; RESP 18; O2SAT 95
[2020-12-29] MEDS: levETIRAcetam 500 MG Tablet PO (08:59)
[2020-12-29] MEDS: levETIRAcetam 1,000 MG Tablet 1000 MG PO ×2 (08:59→22:23)
[2020-12-29] MEDS: Budesonide Respules 0.5 MG/2 ML AMPUL.NEB. INHALATION ×2 (08:59→19:03)
[2020-12-29 14:33] VITALS: BP 120/56; PULSE 79; RESP 16; TEMP 36.3; O2SAT 97
[2020-12-29 19:05] VITALS: PULSE 70; RESP 18; O2SAT 99
[2020-12-29] MEDS: MELATONIN 10 MG TABLET PO (22:21)
[2020-12-29] MEDS: Tamsulosin HCl 0.4 MG Capsule PO (22:21)
[2020-12-29] MEDS: Pregabalin 50 MG Capsule 200 MG PO (22:21)
[2020-12-29] MEDS: Topiramate 200 MG Tablet PO (22:21)
[2020-12-29] MEDS: Menthol/Lanolin/Calamine/Znox 113 GM Tube 1 APPLIC TOPICAL (22:22)
[2020-12-29] MEDS: Atorvastatin Calcium 40 MG Tablet PO (22:22)
[2020-12-30] MEDS: Pregabalin 50 MG Capsule 100 MG PO (05:59)
[2020-12-30] MEDS: Menthol/Lanolin/Calamine/Znox 113 GM Tube 1 APPLIC TOPICAL ×2 (05:59→20:44)
[2020-12-30] MEDS: guaiFENesin 600 MG Tablet PO ×2 (05:59→17:24)
[2020-12-30] MEDS: DULoxetine Hcl 30 MG Capsule PO (05:59)
[2020-12-30] MEDS: Pantoprazole Sodium 40 MG Tablet PO (05:59)
[2020-12-30] MEDS: Glucerna Shake 120 ML LIQUID PO ×2 (05:59→11:43)
[2020-12-30] MEDS: Finasteride 5 MG Tablet PO (05:59)
[2020-12-30] MEDS: Nystatin Powder 15gm Bottle 1 APPLIC TOPICAL ×2 (06:00→20:47)
[2020-12-30 06:03] VITALS: BP 126/69; PULSE 78
[2020-12-30] MEDS: Metoprolol(XL)Succ 25 MG Tablet PO (06:03)
[2020-12-30] MEDS: Furosemide 40 MG Tablet PO (06:03)
[2020-12-30 06:26] LABS: Bedside Glucose 101 mg/dL (70-110)
[2020-12-30 06:40] VITALS: PULSE 60; RESP 20; O2SAT 97
[2020-12-30] MEDS: Amiodarone 200 MG Tablet PO (08:46)
[2020-12-30] MEDS: Potassium Chloride Oral Tablet 20 MEQ PO ×3 (08:47→17:25)
[2020-12-30] MEDS: metFORMIN HCl 500 MG Tablet PO (08:47)
[2020-12-30 08:50] VITALS: BP 117/56; PULSE 74
[2020-12-30] MEDS: levETIRAcetam 1,000 MG Tablet 1000 MG PO ×2 (08:51→20:46)
[2020-12-30] MEDS: levETIRAcetam 500 MG Tablet PO (08:51)
[2020-12-30] MEDS: 0.9% Saline Lock 10 ML Syringe IV (10:49)
[2020-12-30 10:50] VITALS: PULSE 75; RESP 18; O2SAT 98
[2020-12-30 15:56] VITALS: BP 109/55; PULSE 75; RESP 26; TEMP 36.1; O2SAT 98
--- NOTE | 2020-12-30 16:08 | NURSING ---
PT HAS RED RASH TO SHEILA FEET. NO COMPLAINTS FROM PT AT THIS TIME. WILL CONTINUE TO MONITOR. RN AWARE.
[2020-12-30 18:45] VITALS: PULSE 77; RESP 20; O2SAT 98
[2020-12-30] MEDS: Budesonide Respules 0.5 MG/2 ML AMPUL.NEB. INHALATION (18:54)
[2020-12-30] MEDS: Tamsulosin HCl 0.4 MG Capsule PO (20:45)
[2020-12-30] MEDS: Pregabalin 50 MG Capsule 200 MG PO (20:46)
[2020-12-30] MEDS: Atorvastatin Calcium 40 MG Tablet PO (20:46)
[2020-12-30] MEDS: MELATONIN 10 MG TABLET PO (20:47)
[2020-12-30] MEDS: Topiramate 200 MG Tablet PO (20:47)
[2020-12-31 05:33] VITALS: BP 118/59; PULSE 87
[2020-12-31] MEDS: Furosemide 40 MG Tablet PO (05:33)
[2020-12-31] MEDS: Pantoprazole Sodium 40 MG Tablet PO (05:33)
[2020-12-31] MEDS: Metoprolol(XL)Succ 25 MG Tablet PO (05:33)
[2020-12-31] MEDS: Pregabalin 50 MG Capsule 100 MG PO (05:34)
[2020-12-31] MEDS: guaiFENesin 600 MG Tablet PO ×2 (05:34→17:56)
[2020-12-31] MEDS: DULoxetine Hcl 30 MG Capsule PO (05:34)
[2020-12-31] MEDS: Nystatin Powder 15gm Bottle 1 APPLIC TOPICAL ×2 (05:34→21:17)
[2020-12-31] MEDS: Finasteride 5 MG Tablet PO (05:34)
[2020-12-31] MEDS: Menthol/Lanolin/Calamine/Znox 113 GM Tube 1 APPLIC TOPICAL ×2 (05:34→21:16)
[2020-12-31 06:30] LABS: Bedside Glucose 154 mg/dL (70-110)
[2020-12-31 07:00] VITALS: PULSE 87; RESP 18; O2SAT 98
[2020-12-31] MEDS: Budesonide Respules 0.5 MG/2 ML AMPUL.NEB. INHALATION ×2 (07:00→20:15)
[2020-12-31] MEDS: Potassium Chloride Oral Tablet 20 MEQ PO ×3 (08:07→17:56)
[2020-12-31] MEDS: Amiodarone 200 MG Tablet PO (08:07)
[2020-12-31] MEDS: metFORMIN HCl 500 MG Tablet PO (08:08)
[2020-12-31] MEDS: levETIRAcetam 1,000 MG Tablet 1000 MG PO ×2 (09:02→21:03)
[2020-12-31] MEDS: levETIRAcetam 500 MG Tablet PO (09:02)
--- NOTE | 2020-12-31 09:40 | RAD_ITS ---
STUDY: X-RAY CHEST REASON FOR EXAM: Male, 80 years old. Cough TECHNIQUE: PA and lateral views of the chest. COMPARISON: Comparison is made with prior study dated 12/21/1999 FINDINGS: There is hyperinflation of the lungs consistent with chronic obstructive lung disease (COPD). Mild residual increased interstitial markings in the right upper lobe and in the right lower. This has improved as compared to prior study. Persistent blunting of both costophrenic angles. Sternal cerclage wires and vascular clips are present from a prior sternotomy and coronary artery bypass graft procedure (CABG). Normal mediastinum and jagdish. Normal visualized pulmonary arteries. There is atherosclerotic calcification of the aortic arch with tortuosity. There are diffuse degenerative changes of the visualized thoracic spine. Normal visualized ribs, clavicles, and shoulders. There is no demonstrated abnormality of the visualized soft tissue structures of the upper abdomen. RAD/Chest PA and Lateral IMPRESSION: Mild persistent interstitial markings in the right hemithorax as described although this has improved as compared to prior study. Electronically Signed: Ted Cartagena MD at 13:54 EST , Service support ,
[2020-12-31 14:45] VITALS: BP 125/50; PULSE 90; RESP 15; TEMP 36.1; O2SAT 91
--- NOTE | 2020-12-31 15:07 | NURSING ---
Repeat CXR for leukocytosis
[2020-12-31] MEDS: 0.9% Saline Lock 10 ML Syringe IV ×2 (17:55→21:08)
[2020-12-31 20:15] VITALS: PULSE 80; RESP 16
[2020-12-31 20:56] VITALS: PULSE 80; RESP 18; O2SAT 98
[2020-12-31] MEDS: MethylPREDNISolone DosePak 4 MG BOX PO (21:01)
[2020-12-31] MEDS: Atorvastatin Calcium 40 MG Tablet PO (21:02)
[2020-12-31] MEDS: Tamsulosin HCl 0.4 MG Capsule PO (21:02)
[2020-12-31] MEDS: Topiramate 200 MG Tablet PO (21:02)
[2020-12-31] MEDS: Pregabalin 50 MG Capsule 200 MG PO (21:07)
[2020-12-31] MEDS: MELATONIN 10 MG TABLET PO (21:08)
[2020-12-31] MEDS: traMADol 50 MG Tablet PO (21:08)
[2021-01-01 05:04] VITALS: PULSE 80; RESP 16; O2SAT 97
[2021-01-01] MEDS: Polyethylene Glycol 3350 17 GM PACKET PO (05:34)
[2021-01-01 05:35] VITALS: BP 125/62; PULSE 80
[2021-01-01] MEDS: Pregabalin 50 MG Capsule 100 MG PO (05:35)
[2021-01-01] MEDS: Furosemide 40 MG Tablet PO (05:35)
[2021-01-01] MEDS: guaiFENesin 600 MG Tablet PO ×2 (05:35→17:17)
[2021-01-01] MEDS: Metoprolol(XL)Succ 25 MG Tablet PO (05:35)
[2021-01-01] MEDS: DULoxetine Hcl 30 MG Capsule PO (05:35)
[2021-01-01] MEDS: Finasteride 5 MG Tablet PO (05:35)
[2021-01-01] MEDS: Senna/Docusate Sodium 1 Tablet 2 TABLET PO (05:35)
[2021-01-01] MEDS: Pantoprazole Sodium 40 MG Tablet PO (05:35)
[2021-01-01] MEDS: Menthol/Lanolin/Calamine/Znox 113 GM Tube 1 APPLIC TOPICAL ×2 (05:39→21:43)
[2021-01-01] MEDS: Nystatin Powder 15gm Bottle 1 APPLIC TOPICAL ×2 (05:41→21:43)
[2021-01-01] MEDS: 0.9% Saline Lock 10 ML Syringe IV (05:41)
[2021-01-01 06:26] LABS: Bedside Glucose 159 mg/dL (70-110)
[2021-01-01] MEDS: MethylPREDNISolone DosePak 4 MG BOX PO ×4 (07:32→21:28)
[2021-01-01] MEDS: Potassium Chloride Oral Tablet 20 MEQ PO ×3 (07:32→17:16)
[2021-01-01] MEDS: Amiodarone 200 MG Tablet PO (07:32)
[2021-01-01] MEDS: metFORMIN HCl 500 MG Tablet PO (07:32)
[2021-01-01 07:39] VITALS: O2SAT 95
[2021-01-01] MEDS: levETIRAcetam 1,000 MG Tablet 1000 MG PO ×2 (09:01→21:28)
[2021-01-01] MEDS: levETIRAcetam 500 MG Tablet PO (09:01)
[2021-01-01 13:50] VITALS: BP 117/62; PULSE 79; RESP 18; TEMP 36.3; O2SAT 97
[2021-01-01 18:21] VITALS: PULSE 74; RESP 18
[2021-01-01] MEDS: Budesonide Respules 0.5 MG/2 ML AMPUL.NEB. INHALATION (18:21)
[2021-01-01] MEDS: Pregabalin 50 MG Capsule 200 MG PO (21:28)
[2021-01-01] MEDS: Atorvastatin Calcium 40 MG Tablet PO (21:28)
[2021-01-01] MEDS: MELATONIN 10 MG TABLET PO (21:28)
[2021-01-01] MEDS: Topiramate 200 MG Tablet PO (21:28)
[2021-01-01] MEDS: Tamsulosin HCl 0.4 MG Capsule PO (21:28)
[2021-01-01] MEDS: traMADol 50 MG Tablet PO (21:28)
--- NOTE | 2021-01-02 04:50 | NURSING ---
Called ER to see if we should give 06:00 dose of Lasix. ER Doctor advised to give it around 08:00.
[2021-01-02 05:25] VITALS: BP 126/60; PULSE 75
[2021-01-02] MEDS: traMADol 50 MG Tablet PO (05:25)
[2021-01-02] MEDS: Metoprolol(XL)Succ 25 MG Tablet PO (05:25)
[2021-01-02] MEDS: guaiFENesin 600 MG Tablet PO ×2 (05:25→17:33)
[2021-01-02] MEDS: Pantoprazole Sodium 40 MG Tablet PO (05:25)
[2021-01-02] MEDS: Furosemide 40 MG Tablet PO (05:25)
[2021-01-02] MEDS: Senna/Docusate Sodium 1 Tablet 2 TABLET PO (05:25)
[2021-01-02] MEDS: Finasteride 5 MG Tablet PO (05:25)
[2021-01-02] MEDS: DULoxetine Hcl 30 MG Capsule PO (05:25)
[2021-01-02] MEDS: Polyethylene Glycol 3350 17 GM PACKET PO (05:25)
[2021-01-02] MEDS: Pregabalin 50 MG Capsule 100 MG PO (05:25)
--- NOTE | 2021-01-02 05:29 | NURSING ---
Patient c/o sore throat and tongue. Upon oral assessment, tongue is coated and white bumps noted. Note left for Dr. Merrill.
[2021-01-02 06:20] LABS: Bedside Glucose 170 mg/dL (70-110)
[2021-01-02] MEDS: Budesonide Respules 0.5 MG/2 ML AMPUL.NEB. INHALATION ×2 (06:48→19:10)
[2021-01-02 07:35] VITALS: PULSE 74; RESP 18; O2SAT 96
[2021-01-02] MEDS: Potassium Chloride Oral Tablet 20 MEQ PO ×3 (08:59→17:33)
[2021-01-02] MEDS: metFORMIN HCl 500 MG Tablet PO (08:59)
[2021-01-02] MEDS: MethylPREDNISolone DosePak 4 MG BOX PO ×4 (09:00→20:04)
[2021-01-02] MEDS: levETIRAcetam 500 MG Tablet PO (09:00)
[2021-01-02] MEDS: Amiodarone 200 MG Tablet PO (09:00)
[2021-01-02] MEDS: levETIRAcetam 1,000 MG Tablet 1000 MG PO ×2 (09:00→20:03)
[2021-01-02] MEDS: Nystatin Powder 15gm Bottle 1 APPLIC TOPICAL ×2 (09:04→20:05)
[2021-01-02] MEDS: Menthol/Lanolin/Calamine/Znox 113 GM Tube 1 APPLIC TOPICAL ×2 (09:05→20:03)
[2021-01-02 09:11] VITALS: BP 117/57; PULSE 75
[2021-01-02 16:27] VITALS: BP 123/60; PULSE 75; RESP 16; TEMP 36.6; O2SAT 97
[2021-01-02] MEDS: NYSTATIN 500,000 UNIT/5 ML UDC 500000 UNIT PO ×2 (17:30→20:05)
[2021-01-02 19:10] VITALS: PULSE 78; RESP 22
[2021-01-02] MEDS: Topiramate 200 MG Tablet PO (20:03)
[2021-01-02] MEDS: Atorvastatin Calcium 40 MG Tablet PO (20:03)
[2021-01-02] MEDS: MELATONIN 10 MG TABLET PO (20:04)
[2021-01-02] MEDS: Tamsulosin HCl 0.4 MG Capsule PO (20:04)
[2021-01-02] MEDS: Pregabalin 50 MG Capsule 200 MG PO (20:09)
[2021-01-03] MEDS: Finasteride 5 MG Tablet PO (05:33)
[2021-01-03] MEDS: Senna/Docusate Sodium 1 Tablet 2 TABLET PO (05:33)
[2021-01-03] MEDS: NYSTATIN 500,000 UNIT/5 ML UDC 500000 UNIT PO ×4 (05:33→22:56)
[2021-01-03] MEDS: DULoxetine Hcl 30 MG Capsule PO (05:33)
[2021-01-03 05:34] VITALS: BP 121/58; PULSE 79
[2021-01-03] MEDS: Nystatin Powder 15gm Bottle 1 APPLIC TOPICAL ×2 (05:34→22:56)
[2021-01-03] MEDS: Menthol/Lanolin/Calamine/Znox 113 GM Tube 1 APPLIC TOPICAL ×2 (05:34→22:56)
[2021-01-03] MEDS: Furosemide 40 MG Tablet PO (05:34)
[2021-01-03] MEDS: guaiFENesin 600 MG Tablet PO ×2 (05:34→17:22)
[2021-01-03] MEDS: Pantoprazole Sodium 40 MG Tablet PO (05:34)
[2021-01-03] MEDS: Metoprolol(XL)Succ 25 MG Tablet PO (05:34)
[2021-01-03] MEDS: Pregabalin 50 MG Capsule 100 MG PO (05:36)
[2021-01-03 06:25] LABS: Bedside Glucose 203 mg/dL (70-110)
[2021-01-03 07:30] VITALS: PULSE 82; RESP 16; O2SAT 97
[2021-01-03] MEDS: Budesonide Respules 0.5 MG/2 ML AMPUL.NEB. INHALATION ×2 (07:30→19:40)
[2021-01-03] MEDS: Potassium Chloride Oral Tablet 20 MEQ PO ×3 (08:47→17:22)
[2021-01-03] MEDS: Amiodarone 200 MG Tablet PO (08:47)
[2021-01-03] MEDS: MethylPREDNISolone DosePak 4 MG BOX PO ×3 (08:48→22:52)
[2021-01-03] MEDS: metFORMIN HCl 500 MG Tablet PO (08:49)
[2021-01-03] MEDS: levETIRAcetam 1,000 MG Tablet 1000 MG PO ×2 (08:49→22:53)
[2021-01-03] MEDS: levETIRAcetam 500 MG Tablet PO (08:50)
[2021-01-03 08:54] VITALS: BP 127/58; PULSE 81
[2021-01-03 09:05] VITALS: PULSE 84; RESP 18; O2SAT 97
[2021-01-03 15:52] VITALS: BP 135/65; PULSE 82; RESP 17; TEMP 36.6; O2SAT 96
[2021-01-03 19:40] VITALS: PULSE 86; RESP 16; O2SAT 96
[2021-01-03] MEDS: Topiramate 200 MG Tablet PO (22:53)
[2021-01-03] MEDS: MELATONIN 10 MG TABLET PO (22:53)
[2021-01-03] MEDS: Atorvastatin Calcium 40 MG Tablet PO (22:53)
[2021-01-03] MEDS: Tamsulosin HCl 0.4 MG Capsule PO (22:53)
[2021-01-03] MEDS: Pregabalin 50 MG Capsule 200 MG PO (22:56)
[2021-01-04] MEDS: DULoxetine Hcl 30 MG Capsule PO (05:31)
[2021-01-04] MEDS: guaiFENesin 600 MG Tablet PO ×2 (05:31→18:58)
[2021-01-04] MEDS: Finasteride 5 MG Tablet PO (05:31)
[2021-01-04] MEDS: Pantoprazole Sodium 40 MG Tablet PO (05:31)
[2021-01-04] MEDS: Furosemide 40 MG Tablet PO (05:31)
[2021-01-04 05:32] VITALS: BP 118/62; PULSE 76
[2021-01-04] MEDS: Menthol/Lanolin/Calamine/Znox 113 GM Tube 1 APPLIC TOPICAL ×2 (05:32→21:29)
[2021-01-04] MEDS: Pregabalin 50 MG Capsule 100 MG PO (05:32)
[2021-01-04] MEDS: Metoprolol(XL)Succ 25 MG Tablet PO (05:32)
[2021-01-04] MEDS: Senna/Docusate Sodium 1 Tablet 2 TABLET PO (05:32)
[2021-01-04] MEDS: NYSTATIN 500,000 UNIT/5 ML UDC 500000 UNIT PO ×3 (05:33→21:29)
[2021-01-04] MEDS: Nystatin Powder 15gm Bottle 1 APPLIC TOPICAL ×2 (05:33→21:30)
[2021-01-04 06:26] LABS: Bedside Glucose 193 mg/dL (70-110)
[2021-01-04] MEDS: Budesonide Respules 0.5 MG/2 ML AMPUL.NEB. INHALATION ×2 (06:53→19:11)
[2021-01-04] MEDS: Potassium Chloride Oral Tablet 20 MEQ PO ×3 (08:53→18:58)
[2021-01-04] MEDS: Amiodarone 200 MG Tablet PO (08:53)
[2021-01-04] MEDS: metFORMIN HCl 500 MG Tablet PO (08:53)
[2021-01-04] MEDS: MethylPREDNISolone DosePak 4 MG BOX PO ×2 (08:54→21:34)
[2021-01-04] MEDS: levETIRAcetam 1,000 MG Tablet 1000 MG PO ×2 (08:59→21:35)
[2021-01-04] MEDS: levETIRAcetam 500 MG Tablet PO (08:59)
[2021-01-04 12:29] VITALS: BP 120/61; PULSE 80; RESP 16; TEMP 36.4; O2SAT 97
--- NOTE | 2021-01-04 13:59 | EKG12_ITS ---
Test Reason : Blood Pressure : / mmHG Vent. Rate : 084 BPM Atrial Rate : 084 BPM P-R Int : 196 ms QRS Dur : 124 ms QT Int : 406 ms P-R-T Axes : 089 079 071 degrees QTc Int : 479 ms Normal sinus rhythm Right bundle branch block Septal infarct , age undetermined , cannot be excluded Abnormal ECG Confirmed by GERRY RENEE MD ([id number]), loan expeditor ELIANA CABRERA ([id number]) on 01/06/2021 9:56:15 AM Also confirmed by GERRY RENEE MD ([id number]), loan expeditor ELIANA CABRERA ([id number]) on 01/06/2021 9:57:41 AM Referred By: RALEIGH Confirmed By:GERRY RENEE MD
--- NOTE | 2021-01-04 14:01 | CASEMGMT ---
Social Work Spoke with IDT and agreeable to begin SNF referrals for pt to transfer skilled. and pt agreeable to referrals for [facility] and [facility]. Referral made. Will continue to follow. LATASHA GrayW
--- NOTE | 2021-01-04 14:08 | NURSING ---
Therapy reported to this nurse that pt was more lethargic during therapy today and is complaining of chest pain that started after sitting up on side of bed. Pt immediately assessed and stating he is having pain in chest that radiates to upper stomach, pt reports pain being sharp and stated he has never had pain like this before. VS as follows, RR 18, BP 140/73, HR 83, O2 97% on 3 liters O2 via nasal cannula. This nurse called Dr. Merrill and N.O. for stat EKG and U/A C&S. Respiratory Therapy came up and performed EKG showing Acute ND, Charge nurse at nurses stating and heard results. ER called and informed that pt would be heading down. at bedside and updated on new orders and pt condition. RECREATION ATTENDANT called and VS as follows: BS 113, BP 144/72, HR 84, RR 18, SPO2 96% 4 Liters O2 via nasal cannula. Nitroglycerin given per verbal order from hospitalist at approx 14:22, pt assisted by staff in bed to ED.
[2021-01-04 14:30] LABS: Bedside Glucose 113 mg/dL (70-110)
--- NOTE | 2021-01-04 14:30 | CASEMGMT ---
Social Work Responded to DOG BEHAVIORIST. present. Sat with outside pt room. Provided support and updated information on pt status and treatment being provided. left cell phone at home and offered to contact son. Spoke with son Kory to provide update and offer for him to come visit pt in ER. Son and spoke. Assisted to ER with pt. provided [facility] application to [facility]. Submitted to [facility]. Explained [facility] on pt's new until will continue to follow if pt does not return to TCU. appreciative. Hand off given to ED [facility]. Mary Tong, PERSONNEL SECURITY SPECIALIST LABORER HIGH DENSITY PRESS
[2021-01-04 19:08] LABS: Mucous, Urine 0 SEEN /hpf (<or=2+); Squamous Epithelial Cells - UA 0 SEEN /hpf (0-5)
[2021-01-04 19:12] VITALS: PULSE 82; RESP 16
[2021-01-04 19:16] LABS: Color, Urine Yellow (Yellow); Glucose, Dipstick Normal (Normal); Ketone-Dipstick Negative (Negative); Leukocyte Esterase-Dipstick 500 /ul (Negative); Nitrite-Dipstick Negative (Negative); Occult Blood-Urine 250 /ul (Negative); Protein-Dipstick 100 mg/dl (Negative); Urine Bilirubin Dipstick Negative (Negative); Urine Clarity Cloudy (Clear); Urine Urobilinogen Normal (Normal)
[2021-01-04 19:36] LABS: White Blood Cells 10-25 SEEN /hpf (0-5)
[2021-01-04 19:37] LABS: Red Blood Cells-Urine 10-25 SEEN /hpf (0-5)
[2021-01-04 19:38] LABS: Amorphous Sediment 2+; Calcium Oxalate Crystals Ur 1+ /hpf (<or=2+)
[2021-01-04 19:39] LABS: Bacteria 1+ /hpf (None Seen)
[2021-01-04] MEDS: Topiramate 200 MG Tablet PO (21:29)
[2021-01-04] MEDS: Pregabalin 50 MG Capsule 200 MG PO (21:34)
[2021-01-04] MEDS: MELATONIN 10 MG TABLET PO (21:36)
[2021-01-04] MEDS: Tamsulosin HCl 0.4 MG Capsule PO (21:36)
[2021-01-04] MEDS: Atorvastatin Calcium 40 MG Tablet PO (21:36)
[2021-01-04 22:00] VITALS: O2SAT 3
[2021-01-04] MEDS: 0.9% Saline Lock 10 ML Syringe IV (22:47)
[2021-01-05 05:15] VITALS: BP 126/64; PULSE 76
[2021-01-05] MEDS: Metoprolol(XL)Succ 25 MG Tablet PO (05:15)
[2021-01-05] MEDS: Pregabalin 50 MG Capsule 100 MG PO (05:15)
[2021-01-05] MEDS: Senna/Docusate Sodium 1 Tablet 2 TABLET PO ×2 (05:15→17:32)
[2021-01-05] MEDS: guaiFENesin 600 MG Tablet PO ×2 (05:16→17:33)
[2021-01-05] MEDS: Pantoprazole Sodium 40 MG Tablet PO (05:16)
[2021-01-05] MEDS: Finasteride 5 MG Tablet PO (05:16)
[2021-01-05] MEDS: Menthol/Lanolin/Calamine/Znox 113 GM Tube 1 APPLIC TOPICAL ×2 (05:16→21:33)
[2021-01-05] MEDS: DULoxetine Hcl 30 MG Capsule PO (05:16)
[2021-01-05] MEDS: Nystatin Powder 15gm Bottle 1 APPLIC TOPICAL ×2 (05:16→21:33)
[2021-01-05] MEDS: NYSTATIN 500,000 UNIT/5 ML UDC 500000 UNIT PO ×4 (05:16→21:33)
[2021-01-05] MEDS: Furosemide 40 MG Tablet PO (05:16)
[2021-01-05 05:49] LABS: Absolute Lymphocyte Count 1.39 X10^3/uL (0.83-4.51); Absolute Neutrophil Count 11.2 X10^3/uL (2.0-7.7); Basophil# 0.07 X10^3/uL; Basophil% 0.5 % (0-1); Eosinophil# 0.33 X10^3/uL; Eosinophils% 2.3 % (0-5); Hematocrit 37.1 % (40-54); Hemoglobin 11.6 g/dL (13.0-16.5); Lymphocyte # 1.39 X10^3/ul (0.83-4.51); Lymphocyte % 9.8 % (19-41); Mean Corp Hgb Conc 31.3 g/dL (32-36); Mean Corpuscular Hgb 32.8 pg (27.0-32.0); Mean Corpuscular Volume 104.8 fL (80-94); Mean Platelet Vol. 9.6 fl (6.2-12.0); Monocyte# 1.09 X10^3/uL; Monocyte% 7.7 % (0-10); NRBC Flagged by Analyzer 0 % (0-5); Neutrophil # 11.19 X10^3/uL (2.7-7.7); Neutrophil % 78.5 % (47-70); Platelet Count 281 K/mm3 (150-450); RBC Distribution Width CV 15.5 % (11.6-14.6); RBC Distribution Width SD 60.1 fl (35.1-43.9); Red Blood Count 3.54 M/mm3 (4.6-6.2); White Blood Count 14.2 K/mm3 (4.4-11.0)
[2021-01-05 06:08] LABS: Anion Gap 1 (5-15); BUN 31 mg/dL (7-18); BUN/Creat Ratio 33.3 RATIO (10-20); Calcium,Total 8.9 mg/dL (8.5-10.1); Chloride 105 mmol/L (98-107); Creatinine, Serum 0.93 mg/dL (0.70-1.30); EST Glomerular Filtration Rate 82 mL/min (>60); Est Glom Filt Rate - Afr Amer 100 mL/min (>60); Estimated Creatinine Clearance 65.22 ml/min; Glucose 146 mg/dL (74-106); Potassium 4.5 mmol/L (3.5-5.1); Sodium Level 138 mmol/L (136-145)
[2021-01-05 06:26] LABS: Bedside Glucose 152 mg/dL (70-110)
[2021-01-05 06:28] VITALS: PULSE 96; RESP 16; O2SAT 99
[2021-01-05] MEDS: Budesonide Respules 0.5 MG/2 ML AMPUL.NEB. INHALATION ×2 (06:28→19:50)
[2021-01-05] MEDS: 0.9% Saline Lock 10 ML Syringe IV (08:12)
[2021-01-05] MEDS: Potassium Chloride Oral Tablet 20 MEQ PO ×3 (08:14→17:32)
[2021-01-05] MEDS: MethylPREDNISolone DosePak 4 MG BOX PO (08:15)
[2021-01-05] MEDS: metFORMIN HCl 500 MG Tablet PO (08:15)
[2021-01-05] MEDS: Amiodarone 200 MG Tablet PO (08:15)
--- NOTE | 2021-01-05 09:23 | NURSING ---
Pt's chu catheter d/c today to start voiding trials. Pt has started proscar since chu was inserted. Catheter removed, pt tolerated well and catheter intact
[2021-01-05] MEDS: levETIRAcetam 500 MG Tablet PO (09:43)
--- NOTE | 2021-01-05 09:50 | NURSING ---
This nurse called Dr. Romero's office to schedule f/u appointment s/p hip repair now that patient is more medically stable. No answer in office at this time, message left to return phone call.
--- NOTE | 2021-01-05 09:53 | NURSING ---
Pt blood thinners d/c after admission d/t excess bleeding to left hip surgical site, bleeding to hip has stopped but does still have some swelling. Pt D-Dimer elevated, CTA neg for PE but positive for suspected PNA, no s/s of BLE DVT at this time, Dr. Merrill updated and N.O. Eliquis 5mg BID, and IV maxipime until 01/11/21, acewraps/tedhose not applied d/t elevated d-dimer and unknown source and anticoagulant therapy.
[2021-01-05] MEDS: levETIRAcetam 1,000 MG Tablet 1000 MG PO ×2 (11:03→21:33)
--- NOTE | 2021-01-05 11:44 | CASEMGMT ---
Social Work Followed up with [facility] Neither facility has bed availability. Spoke with to update and explained IDT set DC date for 01/13 for pt to transfer skilled to SNF. Inquired about other SNF choices. Emailed list of [place] and [facility] SNFs with star ratings to to choose. expressed understanding. Will continue to follow. Mary Tong, INTERFACE ENGINEER COUNSEL
[2021-01-05 15:51] VITALS: BP 135/64; PULSE 81; RESP 16; TEMP 36.6; O2SAT 99
[2021-01-05] MEDS: Polyethylene Glycol 3350 17 GM PACKET PO (17:31)
[2021-01-05] MEDS: APIXABAN 5 MG TABLET PO (17:33)
[2021-01-05] MEDS: Bisacodyl 5 MG Tablet 10 MG PO (17:34)
--- NOTE | 2021-01-05 18:35 | NURSING ---
This nurse attempted x2 to call and update on f/u appointment with Dr. Romero, but no answer
[2021-01-05 19:50] VITALS: PULSE 87; RESP 16
[2021-01-05] MEDS: Tamsulosin HCl 0.4 MG Capsule PO (21:33)
[2021-01-05] MEDS: Topiramate 200 MG Tablet PO (21:33)
[2021-01-05] MEDS: MELATONIN 10 MG TABLET PO (21:33)
[2021-01-05] MEDS: Atorvastatin Calcium 40 MG Tablet PO (21:33)
[2021-01-05] MEDS: Pregabalin 50 MG Capsule 200 MG PO (21:39)
[2021-01-06] MEDS: Pregabalin 50 MG Capsule 100 MG PO (04:36)
[2021-01-06] MEDS: 0.9% Saline Lock 10 ML Syringe IV ×2 (04:36→13:39)
[2021-01-06] MEDS: Polyethylene Glycol 3350 17 GM PACKET PO (04:39)
[2021-01-06 04:40] VITALS: BP 109/63; PULSE 81
[2021-01-06] MEDS: Furosemide 40 MG Tablet PO (04:40)
[2021-01-06] MEDS: APIXABAN 5 MG TABLET PO ×2 (04:40→17:10)
[2021-01-06] MEDS: Pantoprazole Sodium 40 MG Tablet PO (04:40)
[2021-01-06] MEDS: Metoprolol(XL)Succ 25 MG Tablet PO (04:40)
[2021-01-06] MEDS: NYSTATIN 500,000 UNIT/5 ML UDC 500000 UNIT PO ×4 (04:40→22:21)
[2021-01-06] MEDS: Finasteride 5 MG Tablet PO (04:40)
[2021-01-06] MEDS: DULoxetine Hcl 30 MG Capsule PO (04:40)
[2021-01-06] MEDS: guaiFENesin 600 MG Tablet PO ×2 (04:40→17:10)
[2021-01-06] MEDS: Senna/Docusate Sodium 1 Tablet 2 TABLET PO ×2 (04:40→17:10)
[2021-01-06 05:58] VITALS: BP 109/63; PULSE 81; RESP 16; TEMP 36.7; O2SAT 96
[2021-01-06 06:46] LABS: Bedside Glucose 173 mg/dL (70-110)
[2021-01-06 07:29] VITALS: PULSE 82; RESP 18; O2SAT 92
[2021-01-06] MEDS: Budesonide Respules 0.5 MG/2 ML AMPUL.NEB. INHALATION ×2 (07:29→18:55)
[2021-01-06] MEDS: Potassium Chloride Oral Tablet 20 MEQ PO ×3 (08:32→17:10)
[2021-01-06] MEDS: Amiodarone 200 MG Tablet PO (08:32)
[2021-01-06] MEDS: metFORMIN HCl 500 MG Tablet PO (08:33)
[2021-01-06] MEDS: Nystatin Powder 15gm Bottle 1 APPLIC TOPICAL ×2 (08:37→22:22)
[2021-01-06] MEDS: Menthol/Lanolin/Calamine/Znox 113 GM Tube 1 APPLIC TOPICAL ×2 (08:38→22:17)
[2021-01-06 08:44] VITALS: BP 133/62; PULSE 84; O2SAT 98
[2021-01-06] MEDS: levETIRAcetam 1,000 MG Tablet 1000 MG PO ×2 (10:31→22:19)
[2021-01-06] MEDS: levETIRAcetam 500 MG Tablet PO (10:31)
[2021-01-06 14:29] VITALS: BP 109/63; PULSE 81; RESP 16; TEMP 36.7; O2SAT 96
--- NOTE | 2021-01-06 15:05 | CASEMGMT ---
Social Work contacted this worker with requests to refer to Jocelynn Barbosa at [facility]. Referrals made. Will continue to follow. LATASHA GrayW
--- NOTE | 2021-01-06 15:54 | NURSING ---
PT CAN NOT SEEM TO GET SPUTUM/FLEAM OUT OF CHEST. PT STATED I COUGH BUT CANT SEEM TO GET IT UP. ENCOURAGED I.S. REPORTED TO RN,WILL LEAVE NOTE FOR
[2021-01-06 18:55] VITALS: PULSE 80; RESP 20; O2SAT 97
--- NOTE | 2021-01-06 18:56 | NURSING ---
CALLED PT TO UP DATE HER ON NEW ORDER FOR PT. NO ANSWER,LEFT MESSAGE.
--- NOTE | 2021-01-06 19:02 | NURSING ---
called back and this nurse updated her. thankful and stated she would be in tomorrow.
[2021-01-06] MEDS: MethylPREDNISolone DosePak 4 MG BOX PO (22:17)
[2021-01-06] MEDS: Atorvastatin Calcium 40 MG Tablet PO (22:19)
[2021-01-06] MEDS: Topiramate 200 MG Tablet PO (22:20)
[2021-01-06] MEDS: MELATONIN 10 MG TABLET PO (22:20)
[2021-01-06] MEDS: Pregabalin 50 MG Capsule 200 MG PO (22:29)
[2021-01-06] MEDS: Tamsulosin HCl 0.4 MG Capsule PO (22:32)
[2021-01-07] MEDS: Finasteride 5 MG Tablet PO (06:00)
[2021-01-07] MEDS: Pantoprazole Sodium 40 MG Tablet PO (06:00)
[2021-01-07] MEDS: APIXABAN 5 MG TABLET PO ×2 (06:00→17:08)
[2021-01-07] MEDS: NYSTATIN 500,000 UNIT/5 ML UDC 500000 UNIT PO ×4 (06:00→22:45)
[2021-01-07] MEDS: Pregabalin 50 MG Capsule 100 MG PO (06:00)
[2021-01-07] MEDS: guaiFENesin 600 MG Tablet PO ×2 (06:00→17:09)
[2021-01-07] MEDS: Furosemide 40 MG Tablet PO (06:00)
[2021-01-07] MEDS: DULoxetine Hcl 30 MG Capsule PO (06:00)
[2021-01-07] MEDS: Senna/Docusate Sodium 1 Tablet 2 TABLET PO ×2 (06:00→17:09)
[2021-01-07 06:01] VITALS: BP 126/53; PULSE 82
[2021-01-07] MEDS: Nystatin Powder 15gm Bottle 1 APPLIC TOPICAL ×2 (06:01→22:49)
[2021-01-07] MEDS: Menthol/Lanolin/Calamine/Znox 113 GM Tube 1 APPLIC TOPICAL ×2 (06:01→22:48)
[2021-01-07] MEDS: Metoprolol(XL)Succ 25 MG Tablet PO (06:01)
[2021-01-07 06:26] LABS: Bedside Glucose 165 mg/dL (70-110)
[2021-01-07 06:58] VITALS: PULSE 81; RESP 16; O2SAT 98
[2021-01-07] MEDS: Budesonide Respules 0.5 MG/2 ML AMPUL.NEB. INHALATION ×2 (06:58→19:14)
[2021-01-07] MEDS: MethylPREDNISolone DosePak 4 MG BOX PO ×4 (08:31→22:44)
[2021-01-07] MEDS: metFORMIN HCl 500 MG Tablet PO (08:31)
[2021-01-07] MEDS: Amiodarone 200 MG Tablet PO (08:31)
[2021-01-07] MEDS: Potassium Chloride Oral Tablet 20 MEQ PO ×3 (08:31→17:08)
[2021-01-07 08:37] VITALS: BP 132/61; PULSE 91
[2021-01-07] MEDS: levETIRAcetam 1,000 MG Tablet 1000 MG PO ×2 (10:04→22:45)
[2021-01-07] MEDS: levETIRAcetam 500 MG Tablet PO (10:04)
[2021-01-07 10:15] VITALS: PULSE 95; RESP 18; O2SAT 97
--- NOTE | 2021-01-07 11:06 | NURSING ---
PT COMPLAINED OF BURNING,ITCHING AND FREQUENCY WITH URINATION. RN AND DR. STOREY AWARE
--- NOTE | 2021-01-07 14:14 | CASEMGMT ---
Social Work Followed up with Jaycob at [place] and [facility] on the referral. Both are still reviewing. Will continue to follow. Mary Tong, CASINO SHIFT MANAGER TOOL DESIGNER
[2021-01-07 14:44] VITALS: BP 133/63; PULSE 91; RESP 16; TEMP 36.6; O2SAT 100
[2021-01-07 19:14] VITALS: PULSE 89; RESP 20; O2SAT 97
[2021-01-07] MEDS: Atorvastatin Calcium 40 MG Tablet PO (22:45)
[2021-01-07] MEDS: MELATONIN 10 MG TABLET PO (22:45)
[2021-01-07] MEDS: Pregabalin 50 MG Capsule 200 MG PO (22:45)
[2021-01-07] MEDS: Tamsulosin HCl 0.4 MG Capsule PO (22:45)
[2021-01-07] MEDS: Topiramate 200 MG Tablet PO (22:45)
[2021-01-07] MEDS: 0.9% Saline Lock 10 ML Syringe IV (22:46)
[2021-01-08] MEDS: Pantoprazole Sodium 40 MG Tablet PO (05:08)
[2021-01-08] MEDS: Furosemide 40 MG Tablet PO (05:08)
[2021-01-08] MEDS: Senna/Docusate Sodium 1 Tablet 2 TABLET PO ×2 (05:08→17:09)
[2021-01-08] MEDS: Pregabalin 50 MG Capsule 100 MG PO (05:08)
[2021-01-08] MEDS: Polyethylene Glycol 3350 17 GM PACKET PO (05:08)
[2021-01-08] MEDS: guaiFENesin 600 MG Tablet PO ×2 (05:08→17:09)
[2021-01-08] MEDS: DULoxetine Hcl 30 MG Capsule PO (05:08)
[2021-01-08] MEDS: NYSTATIN 500,000 UNIT/5 ML UDC 500000 UNIT PO ×4 (05:09→21:08)
[2021-01-08] MEDS: Finasteride 5 MG Tablet PO (05:09)
[2021-01-08] MEDS: APIXABAN 5 MG TABLET PO ×2 (05:09→17:09)
[2021-01-08 05:11] VITALS: BP 115/61; PULSE 86
[2021-01-08] MEDS: Metoprolol(XL)Succ 25 MG Tablet PO (05:11)
[2021-01-08 05:27] VITALS: BP 115/61; PULSE 86; RESP 20; TEMP 36.3; O2SAT 99
[2021-01-08 06:31] LABS: Bedside Glucose 198 mg/dL (70-110)
[2021-01-08] MEDS: Menthol/Lanolin/Calamine/Znox 113 GM Tube 1 APPLIC TOPICAL ×2 (06:44→21:01)
[2021-01-08] MEDS: Nystatin Powder 15gm Bottle 1 APPLIC TOPICAL ×2 (06:44→21:23)
[2021-01-08 07:10] VITALS: PULSE 83; RESP 16; O2SAT 98
[2021-01-08] MEDS: Budesonide Respules 0.5 MG/2 ML AMPUL.NEB. INHALATION ×2 (07:10→18:55)
[2021-01-08] MEDS: Amiodarone 200 MG Tablet PO (08:34)
[2021-01-08] MEDS: Potassium Chloride Oral Tablet 20 MEQ PO ×3 (08:34→17:08)
[2021-01-08] MEDS: metFORMIN HCl 500 MG Tablet PO (08:34)
[2021-01-08] MEDS: MethylPREDNISolone DosePak 4 MG BOX PO ×4 (08:39→21:07)
[2021-01-08 08:43] VITALS: BP 131/63; PULSE 84
[2021-01-08] MEDS: levETIRAcetam 1,000 MG Tablet 1000 MG PO ×2 (10:01→21:10)
[2021-01-08] MEDS: levETIRAcetam 500 MG Tablet PO (10:01)
--- NOTE | 2021-01-08 10:07 | NURSING ---
ELBOW PADS TO SHEILA ELBOWS DUE TO REDNESS. RN AWARE
--- NOTE | 2021-01-08 11:44 | NURSING ---
THIS NURSE CALLED TO PT ROOM. UPON ENTERING PT ON BSC, PT NOSE ON LEFT SIDE BLOOD WAS JUST RUNNING OUT. NOTIFIED RN. ICE APPLIED TO NOSE TILL IT STOPPED. PT CLEANED UP AND SET BACK IN RECLINER. PT REFUSED TO EAT,RESTING AT THIS TIME. WILL CONTINUE TO MONITOR.
[2021-01-08 12:50] VITALS: BP 127/88; PULSE 79; RESP 16; TEMP 35.9; O2SAT 98
[2021-01-08] MEDS: 0.9% Saline Lock 10 ML Syringe IV ×2 (13:36→21:08)
--- NOTE | 2021-01-08 13:51 | CASEMGMT ---
Addendum entered by Mary Tong 01/08/21 14:08: Spoke with [facility] and confirmed pt still has skilled needs. They can accept pt pending updates notes Monday. Will continue to follow. Original Note: Social Work Left message with Jaycob at [place] to follow up on referral. Spoke with admissions at [facility] - answered several questions - DON continuing to review. SW to continue to follow. Mary Tong, SPED TEACHER MEATMAN
--- NOTE | 2021-01-08 14:34 | PCM.DC.SUM ---
Providers Date of Admission: 12/14/20 Primary Care Physician: Dr. Nicole Talavera MD Reason For Visit: LEFT HIP FRACTURE REPAIR Diagnosis Discharge Diagnosis (1) Debility: Status: Acute Code(s): R53.81 - Other malaise (2) Closed left hip fracture: Status: Acute Code(s): S72.002A - Fracture of unspecified part of neck of left femur, initial encounter for closed fracture (3) Asthma: Status: Acute Code(s): J45.909 - Unspecified asthma, uncomplicated (4) COPD (chronic obstructive pulmonary disease): Status: Chronic Code(s): J44.9 - Chronic obstructive pulmonary disease, unspecified (5) Atrial fibrillation: Status: Acute Code(s): I48.91 - Unspecified atrial fibrillation (6) Hyperlipidemia: Status: Acute Code(s): E78.5 - Hyperlipidemia, unspecified (7) Anxiety: Status: Acute Code(s): F41.9 - Anxiety disorder, unspecified (8) Coronary artery disease: Status: Acute Code(s): I25.10 - Atherosclerotic heart disease of [place] coronary artery without angina pectoris (9) Benign prostatic hyperplasia: Status: Acute Code(s): N40.0 - Benign prostatic hyperplasia without lower urinary tract symptoms (10) Edema: Status: Acute Code(s): R60.9 - Edema, unspecified (11) Diabetic neuropathy: Status: Acute Code(s): E11.40 - Type 2 diabetes mellitus with diabetic neuropathy, unspecified (12) Diabetes mellitus: Status: Acute Code(s): E11.9 - Type 2 diabetes mellitus without complications (13) Hypertension: Status: Chronic Code(s): I10 - Essential (primary) hypertension (14) Gastroesophageal reflux disease: Status: Acute Code(s): K21.9 - Gastro-esophageal reflux disease without esophagitis (15) Hypokalemia: Status: Acute Code(s): E87.6 - Hypokalemia Medications at Discharge Home Medications amiodarone 200 mg tablet 200 mg PO DAILY 07/31/18 atorvastatin 40 mg tablet 40 mg PO DAILY 07/31/18 finasteride 5 mg tablet 5 mg PO DAILY 07/31/18 levetiracetam 1,000 mg tablet 1,000 mg PO QHS 07/31/18 metformin 500 mg tablet 500 mg PO BREAKFAST 07/31/18 pantoprazole 40 mg tablet,delayed release 40 mg PO DAILY 07/31/18 potassium chloride 20 mEq tablet,extended release(part/cryst) 20 meq PO TID 07/31/18 tamsulosin 0.4 mg capsule 0.4 mg PO QHS 07/31/18 topiramate 200 mg tablet 200 mg PO QHS 07/31/18 albuterol sulfate [Ventolin HFA] 2 puff INHALATION Q6H 12/14/20 apixaban [Eliquis] 5 mg PO BID #0 tab 01/08/21 budesonide 0.5 mg INHALATION BID.RT #0 ml 01/08/21 duloxetine 30 mg PO DAILY #0 cap 01/08/21 food supplemt, lactose-reduced [Ensure Compact] 118 ml PO 4X/DAY #0 ml 01/08/21 furosemide 40 mg PO DAILY #0 tab 01/08/21 guaifenesin [Mucus Relief ER] 600 mg PO BID #0 tab 01/08/21 levetiracetam 1,000 mg PO QAM #0 tab 01/08/21 levetiracetam 500 mg PO QAM #0 tab 01/08/21 melatonin 10 mg PO QHS #0 tab 01/08/21 menthol-zinc oxide [Calmoseptine] 1 applic TOPICAL BID@0600,2200 #0 g 01/08/21 metoprolol succinate 25 mg PO DAILY #0 tab 01/08/21 nystatin [Nyamyc] 1 applic TOPICAL BID@0600,2200 #0 g 01/08/21 peg [id number] [Artificial Tears([id number])] 2 drp EACH EYE Q1H PRN #0 ml 01/08/21 polyethylene glycol 3350 17 g PO BID #0 ea 01/08/21 pregabalin 100 mg PO DAILY 7 Days #14 cap 01/08/21 pregabalin 200 mg PO QHS 7 Days #28 cap 01/08/21 sennosides-docusate sodium [Stool Softener-Stimulant Laxat] 2 tab PO BID #0 tab 01/08/21 Hospital Course Operations - (Left hip hemiarthroplasty.) Procedures None Summary of Care Provided Minutes Spent on Discharge: 35 Hospital Course: 80 year old male with below past medical history hospitalized for left hip fracture, underwent left hip hemiarthroplasty 12/11/2020, admitted to TCU with debility, here for rehabilitation, strengthening, prior to discharge home with . Resident developed pneumonia, urinary tract infection on TCU, adequately treated with IV antibiotics. I asked William if he feels he is dying. He said yes, he does not fear , I asked William to keep fighting, if unable to fight anymore, transition to hospice care. Discharge to care home facility 01/13/2021, skilled PT/OT/ST. Physical Exam Const alert and oriented x3 General Appearance: cooperative HEENT normocephalic Eyes PERRL and EOMs intact bilaterally Neck supple, no JVD and no carotid bruits Resp normal respiratory effort, normal air movement and clear to auscultation bilaterally Cardio regular rate and regular rhythm GI normal to inspection, nondistended, normoactive bowel sounds, non-tender and non-distended Extremity normal capillary refill General Extremity: Negative for edema Skin no rashes or lesions noted General Skin Exam: no breakdown Psych affect normal Appearance: appropriate Medical Records Data Medical Nutrition Assessment Dietitian: Malnutrition Criteria Met Start: 12/23/20 11:42 Freq: Status: Active Protocol: Document 12/23/20 11:42 CONCHA (Rec: 12/23/20 11:43 CONCHA [id number]) Nutrition Malnutrition Evidence of Malnutrition Exists Yes Malnutrition (severe): Acute Illness/Injury Evidenced By Suboptimal Energy Intake ( Severe),Weight Loss (Severe) Intake Problem Inadequate Oral Intake Status Inactive Problem Clinical Problem Acute Disease or Injury Related Malnutrition Etiology r/t acute illness (lethargy, decreased appetite, fever) and dislike for hospital food Signs/Symptoms as evidenced by variable po intake w/ frequent refusals and avg <50% which is meeting <75% of estimated nutritional needs and 3.3% wt loss since admission Status Active Problem Recommendation Dietitian Recommendations/Changes Will change diet to liberal Regular diet w/ small portions per res preference Will continue 120 ml glucerna shake w/ medpass for increased nutrition if consumed Will provide regular pudding w / lunch and dinner for increased nutrition if consumed. Weight / BMI Weight Weight: 78.642 kg Body Mass Index (BMI) 25.0 ABG / Lab / Microbiology Data Result Diagrams: 01/05/21 05:03 01/05/21 05:03 Laboratory: Laboratory Results - last 24 hr 01/08/21 06:24: POC Glucose 198 H Microbiology: Microbiology 01/04/21 18:58 Urine Catheter - Ambriz Urine Culture - Final Pseudomonas aeroginosa 12/28/20 14:53 Nasal Secretion SARS-CoV-2 Antigen (Rapid) - Final 12/22/20 12:16 Nasal Secretion SARS-CoV-2 Antigen (Rapid) - Final 12/18/20 14:20 Sputum, Expectorated/Coughed Gram Stain - Final 12/18/20 14:20 Sputum, Expectorated/Coughed Respiratory Culture - Final Citrobacter koseri 12/17/20 01:45 Mucosa - Nose Respiratory Panel (PCR) - Final D/C Instructions Discharge Diet: No restrictions Discharge Activity: Return to Normal Activity, May Shower and Use Walker Weight Bearing Status: Weight bearing as tolerated Call your doctor if you observe: Fever of 101 or Higher, Inability to urinate, Inability to have a bowel movement, Shortness of breath, Dizziness, Fainting spells, Swelling in the ankles, Chest pain and Uncontrolled pain Additional Instructions: Discharge to care home facility 01/13/2021, skilled PT/OT/ST. Please Follow Up With: Dr. Inderjit Romero When: As scheduled. Meaningful Use Info Meaningful Use Diagnoses (Choose all that apply): None applicable Discharge Plan Admission Admit Date/Time: 12/14/20 21:25 Primary Reason for Your Visit: Debility. Attending Provider: Beny Merrill Chi Primary Care Provider: Nicole Talavera Instructions Additional Instructions / Restrictions: Discharge to care home facility 01/13/2021, skilled PT/OT/ST. Discharge Orders/Prescriptions Prescriptions: New furosemide 40 mg Tablet 40 mg PO DAILY Qty: 0 RF: 0 polyethylene glycol 3350 17 gram Powder In Packet 17 g PO BID Qty: 0 RF: 0 levetiracetam 500 mg Tablet 500 mg PO QAM Qty: 0 RF: 0 sennosides-docusate sodium [Stool Softener-Stimulant Laxat] 8.6-50 mg Tablet 2 tab PO BID Qty: 0 RF: 0 budesonide 0.5 mg/2 mL Suspension For Nebulization 0.5 mg inhalation BID.RT Qty: 0 RF: 0 metoprolol succinate 25 mg Tablet Extended Release 24 Hr 25 mg PO DAILY Qty: 0 RF: 0 nystatin [Nyamyc] 100,000 unit/gram Powder 1 applic topical BID@0600,2200 Qty: 0 RF: 0 Ensure Compact Liquid 118 ml PO 4X/DAY Qty: 0 RF: 0 Artificial Tears(gc-eyrs-tbjp) 1-0.2-0.2 % Drops 2 drp EACH EYE Q1H PRN (Reason: DRY EYES) Qty: 0 RF: 0 duloxetine 30 mg Capsule,Delayed Release(Dr/Ec) 30 mg PO DAILY Qty: 0 RF: 0 pregabalin 50 mg Capsule 100 mg PO DAILY 7 Days Qty: 14 RF: 0 pregabalin 50 mg Capsule 200 mg PO QHS 7 Days Qty: 28 RF: 0 levetiracetam 1,000 mg Tablet 1,000 mg PO QAM Qty: 0 RF: 0 menthol-zinc oxide [Calmoseptine] 0.44-20.6 % Ointment 1 applic topical BID@0600,2200 Qty: 0 RF: 0 Eliquis 5 mg Tablet 5 mg PO BID Qty: 0 RF: 0 guaifenesin [Mucus Relief ER] 600 mg Tablet Extended Release 12hr 600 mg PO BID Qty: 0 RF: 0 melatonin 10 mg Tablet, Sublingual 10 mg PO QHS Qty: 0 RF: 0 Continued pantoprazole [Protonix] 40 mg tablet,delayed release (DR/EC) 40 mg PO DAILY RF: 0 topiramate [Topamax] 200 mg tablet 200 mg PO QHS RF: 0 tamsulosin 0.4 mg capsule 0.4 mg PO QHS RF: 0 amiodarone 200 mg tablet 200 mg PO DAILY RF: 0 atorvastatin 40 mg tablet 40 mg PO DAILY RF: 0 finasteride 5 mg tablet 5 mg PO DAILY RF: 0 levetiracetam 1,000 mg tablet 1,000 mg PO QHS RF: 0 potassium chloride [Klor-Con M20] 20 mEq tablet,ER particles/crystals 20 meq PO TID RF: 0 metformin 500 mg tablet 500 mg PO BREAKFAST RF: 0 albuterol sulfate [Ventolin HFA] 90 mcg/actuation HFA aerosol inhaler 2 puff INHALATION Q6H RF: 0 Discontinued aspirin 81 mg tablet,delayed release (DR/EC) 81 mg PO DAILY RF: 0 clopidogrel 75 mg tablet 75 mg PO DAILY RF: 0 furosemide 40 mg tablet 40 mg PO DAILY PRN (Reason: Shortness of breath or swelling) RF: 0 prednisone 10 mg tablet 10 mg PO QDAY Qty: 30 RF: 0 Alvesco 160 mcg/actuation HFA aerosol inhaler 2 puff INHALATION BID RF: 0 Stiolto Respimat 2.5-2.5 mcg/actuation mist 2 puff INHALATION DAILY RF: 0 Referrals / Follow Up: Nicole Talavera MD [Primary Care Provider] - Disposition Disposition (needs filled in before D/C Order can be placed): Group Home Facility
--- NOTE | 2021-01-08 14:43 | TREXTCAR_ITS ---
Diet 12/21/20 12:42 Diet: Regular - General Is pt able to select menu?: Yes Diet Comments: SMALL PORTIONS; fortified pudding w/ lunch and dinner; whole milk tid Routine Orders/Code Status Code Status: Full Code Wound(s) Left Knee: Wound Type: Abrasion Left Hip: Wound Type: Surgical Incision Dressing Change: mepilex from 12/17 Bilateral buttocks: Wound Type: shearing Dressing Change: mepilex Right buttock: Wound Type: Questionable pressure area Dressing Change: Mepilex 12/15/20 Left thigh below surgical site: Wound Type: tape michele Therapies Weight Bearing: Weight bearing as tolerated Extremity Affected:: Bilateral Lower Physical Therapy: Eval and Treat Occupational Therapy: Eval and Treat Speech Therapy: Eval and Treat Problem/Diagnosis (1) Debility: Status: Acute (2) Closed left hip fracture: Status: Acute (3) Asthma: Status: Acute (4) COPD (chronic obstructive pulmonary disease): Status: Chronic (5) Atrial fibrillation: Status: Acute (6) Hyperlipidemia: Status: Acute (7) Anxiety: Status: Acute (8) Coronary artery disease: Status: Acute (9) Benign prostatic hyperplasia: Status: Acute (10) Edema: Status: Acute (11) Diabetic neuropathy: Status: Acute (12) Diabetes mellitus: Status: Acute (13) Hypertension: Status: Chronic (14) Gastroesophageal reflux disease: Status: Acute (15) Hypokalemia: Status: Acute Allergies/Procedures Done in Hospital Allergies tizanidine Allergy (Unknown, Verified 01/04/21 14:36) Irritability Procedures: None Type of Care/Length of Stay Estimated LOS: Convalescent Care Less Than 30 days Type of Care Needed: Skilled Rehab Potential: Poor Prognosis: Poor Additional Orders/Day of Discharge Day of Discharge: 01/13/21 Dietary and Speech Recommendations Dietitian Recommendations/Changes: Will continue liberal Regular diet w/ small portions per res preference Will continue chocolate ensure compact for increased nutrition if consumed Will continue fortified pudding w/ lunch and dinner for increased nutrition if consumed. Will continue to provide whole milk w/ all meals per res request. Follow Up Care Please Follow Up With: Dr. Inderjit Romero When: monday Discharge Plan Admission Admit Date/Time: 12/14/20 21:25 Primary Reason for Your Visit: Debility. Attending Provider: Beny Merrill Chi Primary Care Provider: Nicole Talavera Instructions Additional Instructions / Restrictions: Discharge to halfway facility 01/13/2021, skilled PT/OT/ST. Discharge Orders/Prescriptions Prescriptions: New furosemide 40 mg Tablet 40 mg PO DAILY Qty: 0 RF: 0 polyethylene glycol 3350 17 gram Powder In Packet 17 g PO BID Qty: 0 RF: 0 levetiracetam 500 mg Tablet 500 mg PO QAM Qty: 0 RF: 0 sennosides-docusate sodium [Stool Softener-Stimulant Laxat] 8.6-50 mg Tablet 2 tab PO BID Qty: 0 RF: 0 budesonide 0.5 mg/2 mL Suspension For Nebulization 0.5 mg inhalation BID.RT Qty: 0 RF: 0 metoprolol succinate 25 mg Tablet Extended Release 24 Hr 25 mg PO DAILY Qty: 0 RF: 0 nystatin [Nyamyc] 100,000 unit/gram Powder 1 applic topical BID@0600,2200 Qty: 0 RF: 0 Ensure Compact Liquid 118 ml PO 4X/DAY Qty: 0 RF: 0 Artificial Tears(dr-uqri-pkyw) 1-0.2-0.2 % Drops 2 drp EACH EYE Q1H PRN (Reason: DRY EYES) Qty: 0 RF: 0 duloxetine 30 mg Capsule,Delayed Release(Dr/Ec) 30 mg PO DAILY Qty: 0 RF: 0 pregabalin 50 mg Capsule 100 mg PO DAILY 7 Days Qty: 14 RF: 0 pregabalin 50 mg Capsule 200 mg PO QHS 7 Days Qty: 28 RF: 0 levetiracetam 1,000 mg Tablet 1,000 mg PO QAM Qty: 0 RF: 0 menthol-zinc oxide [Calmoseptine] 0.44-20.6 % Ointment 1 applic topical BID@0600,2200 Qty: 0 RF: 0 Eliquis 5 mg Tablet 5 mg PO BID Qty: 0 RF: 0 guaifenesin [Mucus Relief ER] 600 mg Tablet Extended Release 12hr 600 mg PO BID Qty: 0 RF: 0 melatonin 10 mg Tablet, Sublingual 10 mg PO QHS Qty: 0 RF: 0 Continued pantoprazole [Protonix] 40 mg tablet,delayed release (DR/EC) 40 mg PO DAILY RF: 0 topiramate [Topamax] 200 mg tablet 200 mg PO QHS RF: 0 tamsulosin 0.4 mg capsule 0.4 mg PO QHS RF: 0 amiodarone 200 mg tablet 200 mg PO DAILY RF: 0 atorvastatin 40 mg tablet 40 mg PO DAILY RF: 0 finasteride 5 mg tablet 5 mg PO DAILY RF: 0 levetiracetam 1,000 mg tablet 1,000 mg PO QHS RF: 0 potassium chloride [Klor-Con M20] 20 mEq tablet,ER particles/crystals 20 meq PO TID RF: 0 metformin 500 mg tablet 500 mg PO BREAKFAST RF: 0 albuterol sulfate [Ventolin HFA] 90 mcg/actuation HFA aerosol inhaler 2 puff INHALATION Q6H RF: 0 Discontinued aspirin 81 mg tablet,delayed release (DR/EC) 81 mg PO DAILY RF: 0 clopidogrel 75 mg tablet 75 mg PO DAILY RF: 0 furosemide 40 mg tablet 40 mg PO DAILY PRN (Reason: Shortness of breath or swelling) RF: 0 prednisone 10 mg tablet 10 mg PO QDAY Qty: 30 RF: 0 Alvesco 160 mcg/actuation HFA aerosol inhaler 2 puff INHALATION BID RF: 0 Stiolto Respimat 2.5-2.5 mcg/actuation mist 2 puff INHALATION DAILY RF: 0 Referrals / Follow Up: Nicole Talavera MD [Primary Care Provider] - Disposition Disposition (needs filled in before D/C Order can be placed): [facility]-Way [facility]
[2021-01-08 18:55] VITALS: PULSE 79; RESP 20
[2021-01-08] MEDS: Atorvastatin Calcium 40 MG Tablet PO (21:08)
[2021-01-08] MEDS: Topiramate 200 MG Tablet PO (21:08)
[2021-01-08] MEDS: MELATONIN 10 MG TABLET PO (21:08)
[2021-01-08] MEDS: Tamsulosin HCl 0.4 MG Capsule PO (21:08)
[2021-01-08] MEDS: Pregabalin 50 MG Capsule 200 MG PO (21:12)
[2021-01-09] MEDS: Menthol/Lanolin/Calamine/Znox 113 GM Tube 1 APPLIC TOPICAL ×2 (05:20→21:59)
[2021-01-09] MEDS: NYSTATIN 500,000 UNIT/5 ML UDC 500000 UNIT PO ×4 (05:23→21:58)
[2021-01-09] MEDS: Pantoprazole Sodium 40 MG Tablet PO (05:23)
[2021-01-09] MEDS: Senna/Docusate Sodium 1 Tablet 2 TABLET PO ×2 (05:23→17:24)
[2021-01-09 05:24] VITALS: BP 119/68; PULSE 80
[2021-01-09] MEDS: guaiFENesin 600 MG Tablet PO ×2 (05:24→17:25)
[2021-01-09] MEDS: Metoprolol(XL)Succ 25 MG Tablet PO (05:24)
[2021-01-09] MEDS: Finasteride 5 MG Tablet PO (05:24)
[2021-01-09] MEDS: DULoxetine Hcl 30 MG Capsule PO (05:24)
[2021-01-09] MEDS: Furosemide 40 MG Tablet PO (05:24)
[2021-01-09] MEDS: Polyethylene Glycol 3350 17 GM PACKET PO ×2 (05:25→17:23)
[2021-01-09] MEDS: Nystatin Powder 15gm Bottle 1 APPLIC TOPICAL ×2 (05:26→22:00)
[2021-01-09] MEDS: APIXABAN 5 MG TABLET PO ×2 (05:27→17:23)
[2021-01-09] MEDS: 0.9% Saline Lock 10 ML Syringe IV ×3 (05:27→13:13)
[2021-01-09] MEDS: Pregabalin 50 MG Capsule 100 MG PO (05:46)
[2021-01-09 06:15] VITALS: PULSE 79; RESP 18; O2SAT 92
[2021-01-09 06:31] LABS: Bedside Glucose 145 mg/dL (70-110)
[2021-01-09] MEDS: Budesonide Respules 0.5 MG/2 ML AMPUL.NEB. INHALATION ×2 (06:48→18:50)
[2021-01-09] MEDS: Potassium Chloride Oral Tablet 20 MEQ PO ×3 (08:16→17:24)
[2021-01-09] MEDS: Amiodarone 200 MG Tablet PO (08:17)
[2021-01-09] MEDS: metFORMIN HCl 500 MG Tablet PO (08:17)
[2021-01-09] MEDS: MethylPREDNISolone DosePak 4 MG BOX PO ×3 (08:18→21:58)
[2021-01-09] MEDS: levETIRAcetam 500 MG Tablet PO (09:14)
[2021-01-09] MEDS: levETIRAcetam 1,000 MG Tablet 1000 MG PO ×2 (09:14→21:58)
--- NOTE | 2021-01-09 09:18 | NURSING ---
Pt c/o pain when flushing IV, no s/s of infiltration, IV site bruised, Fluid noted leaking around IV, Saline lock pulled, catheter tip intact, pt tolerated well. DSD applied and secured with paper tape
[2021-01-09 13:47] VITALS: BP 113/67; PULSE 83; RESP 14; TEMP 36.4; O2SAT 96
[2021-01-09] MEDS: Bisacodyl 5 MG Tablet 10 MG PO (17:33)
[2021-01-09 18:50] VITALS: PULSE 78; RESP 16; O2SAT 95
--- NOTE | 2021-01-09 18:58 | PCA ---
SIGNAL MANAGER approached patient and offered to help them fill out their menu. patient responded with No SIGNAL MANAGER asked if it was ok if they filled it out for him and he responded with No Asked if he was going want to eat and again said no. SIGNAL MANAGER explained the importance of eating and still patient stated they did not want to fill out menu. Will select a balanced menu for patient. Also asked if they wanted to get washed up for the evening and they stated that they were just recently changed and did not wish to wash up at this time. Adjusted pillows and refilled ice water. call light left within reach.
[2021-01-09] MEDS: Pregabalin 50 MG Capsule 200 MG PO (21:58)
[2021-01-09] MEDS: MELATONIN 10 MG TABLET PO (21:58)
[2021-01-09] MEDS: Topiramate 200 MG Tablet PO (21:58)
[2021-01-09] MEDS: Atorvastatin Calcium 40 MG Tablet PO (21:58)
[2021-01-09] MEDS: Tamsulosin HCl 0.4 MG Capsule PO (21:58)
[2021-01-10 05:33] VITALS: BP 118/55; PULSE 83
[2021-01-10] MEDS: Pregabalin 50 MG Capsule 100 MG PO (05:33)
[2021-01-10] MEDS: APIXABAN 5 MG TABLET PO (05:33)
[2021-01-10] MEDS: Metoprolol(XL)Succ 25 MG Tablet PO (05:33)
[2021-01-10] MEDS: Polyethylene Glycol 3350 17 GM PACKET PO (05:33)
[2021-01-10] MEDS: Finasteride 5 MG Tablet PO (05:34)
[2021-01-10] MEDS: Nystatin Powder 15gm Bottle 1 APPLIC TOPICAL ×2 (05:34→22:34)
[2021-01-10] MEDS: Furosemide 40 MG Tablet PO (05:34)
[2021-01-10] MEDS: guaiFENesin 600 MG Tablet PO (05:34)
[2021-01-10] MEDS: NYSTATIN 500,000 UNIT/5 ML UDC 500000 UNIT PO ×3 (05:34→22:36)
[2021-01-10] MEDS: Senna/Docusate Sodium 1 Tablet 2 TABLET PO (05:34)
[2021-01-10] MEDS: Menthol/Lanolin/Calamine/Znox 113 GM Tube 1 APPLIC TOPICAL ×2 (05:34→22:34)
[2021-01-10] MEDS: Pantoprazole Sodium 40 MG Tablet PO (05:34)
[2021-01-10] MEDS: DULoxetine Hcl 30 MG Capsule PO (05:34)
[2021-01-10] MEDS: 0.9% Saline Lock 10 ML Syringe IV ×2 (05:37→13:01)
[2021-01-10 06:21] LABS: Bedside Glucose 145 mg/dL (70-110)
[2021-01-10 06:41] VITALS: O2SAT 94
--- NOTE | 2021-01-10 06:46 | NURSING ---
Patient noted to have increased edema in bilateral hands. Attempted to elevate both, 15 minutes later this Nurse went into room and he had already had them back down. This Nurse also handed patient Apple Juice and as patient took cup, he jerked and juice went all over groin area. Second cup of Apple Juice was given and patient again jerked and spilled that cup. Patient was cleaned up, new dry gown and sheets.
[2021-01-10] MEDS: metFORMIN HCl 500 MG Tablet PO (07:42)
[2021-01-10] MEDS: Potassium Chloride Oral Tablet 20 MEQ PO ×2 (07:42→13:01)
[2021-01-10] MEDS: MethylPREDNISolone DosePak 4 MG BOX PO ×2 (07:43→22:36)
[2021-01-10] MEDS: Amiodarone 200 MG Tablet PO (07:43)
[2021-01-10] MEDS: levETIRAcetam 1,000 MG Tablet 1000 MG PO ×2 (09:35→22:37)
[2021-01-10] MEDS: levETIRAcetam 500 MG Tablet PO (09:35)
--- NOTE | 2021-01-10 12:31 | CASEMGMT ---
Social Work Sent updated clinicals to [facility]. Mary Tong, WINE MAKER DELIMBER OPERATOR
[2021-01-10 15:33] VITALS: BP 119/66; PULSE 85; RESP 18; TEMP 36.6; O2SAT 98
[2021-01-10 15:46] LABS: Bedside Glucose 138 mg/dL (70-110)
--- NOTE | 2021-01-10 15:47 | CASEMGMT ---
Social Work Nurse requested this worker's assistance as pt had change in condition and stating he's dying. Nurse spoke with Dr. Merrill and stated he would be appropriate for hospice and recommended a code status change or for pt to go to ED for change in condition. Met with pt and in room. Inquired to pt how he was feeling and his wishes. Pt stated I want to figure out what the hell is wrong with me. Inquired if pt wanted CPR and intubation if pt required it or wanted to be kept comfortable/DNR - pt stated he wants full code and confirmed he wants treatment. agreeable. Explained will report to nurse and . planned to send to ED. Reported to nurse. Confirmed to send to ED. Mary Tong, BLOCK SPLITTER OPERATOR SIGNS CLEANER
--- NOTE | 2021-01-10 15:53 | NURSING ---
Pt's came and got this nurse stating that pt said he feels like he is having a stroke and thinks he is going to . This nurse immediately assessed pt and some bilateral weakness and tremors noted but zonia safety equipment testing specialist/BLE strength normal and equal, tongue midline, pt able to hold both arms in air and raise both eyebrows, PERRLA equal and brisk reaction, no deficit noted at this time. VS ROXANNE, tank charger nurse updated and also came and assessed pt. Pt and family requesting pt be sent to ER for further evaluation. Dr. Merrill was called and updated and N.O. to send pt to ED for eval. Report called to ED.
[2021-01-10 16:01] VITALS: BP 145/52; PULSE 92; RESP 16; TEMP 36.7; O2SAT 93
[2021-01-10 22:17] VITALS: BP 132/68; PULSE 66; RESP 20; TEMP 37.1; O2SAT 98
--- NOTE | 2021-01-10 22:25 | NURSING ---
Patient returned from ED with no new orders. Vitals obtained as noted.
[2021-01-10] MEDS: Pregabalin 50 MG Capsule 200 MG PO (22:33)
[2021-01-10] MEDS: Topiramate 200 MG Tablet PO (22:36)
[2021-01-10] MEDS: Atorvastatin Calcium 40 MG Tablet PO (22:37)
[2021-01-10] MEDS: Tamsulosin HCl 0.4 MG Capsule PO (22:37)
[2021-01-10] MEDS: Bisacodyl 5 MG Tablet 10 MG PO (22:42)
[2021-01-10] MEDS: MELATONIN 10 MG TABLET PO (22:43)
[2021-01-10 22:46] VITALS: PULSE 66; RESP 20; O2SAT 98
--- NOTE | 2021-01-11 04:52 | NURSING ---
Patient's abdomen distended and firm. Painful with palpation. Bladder scanned at greater than 999 mL. Appears both bilateral feet have mottling. RN called to room. Dr. Merrill paged.
[2021-01-11 05:08] VITALS: BP 136/64; PULSE 90; RESP 22; TEMP 36.2; O2SAT 94
[2021-01-11] MEDS: Menthol/Lanolin/Calamine/Znox 113 GM Tube 1 APPLIC TOPICAL (05:09)
[2021-01-11] MEDS: Nystatin Powder 15gm Bottle 1 APPLIC TOPICAL (05:09)
[2021-01-11] MEDS: NYSTATIN 500,000 UNIT/5 ML UDC 500000 UNIT PO ×2 (05:10→11:27)
[2021-01-11] MEDS: Polyethylene Glycol 3350 17 GM PACKET PO (05:10)
[2021-01-11 05:11] VITALS: BP 136/64; PULSE 90
[2021-01-11] MEDS: Senna/Docusate Sodium 1 Tablet 2 TABLET PO (05:11)
[2021-01-11] MEDS: DULoxetine Hcl 30 MG Capsule PO (05:11)
[2021-01-11] MEDS: Finasteride 5 MG Tablet PO (05:11)
[2021-01-11] MEDS: Furosemide 40 MG Tablet PO (05:11)
[2021-01-11] MEDS: Pantoprazole Sodium 40 MG Tablet PO (05:11)
[2021-01-11] MEDS: Metoprolol(XL)Succ 25 MG Tablet PO (05:11)
[2021-01-11] MEDS: guaiFENesin 600 MG Tablet PO (05:11)
[2021-01-11] MEDS: APIXABAN 5 MG TABLET PO (05:11)
[2021-01-11] MEDS: Pregabalin 50 MG Capsule 100 MG PO (05:16)
[2021-01-11] MEDS: traMADol 50 MG Tablet PO (05:16)
--- NOTE | 2021-01-11 05:26 | NURSING ---
Called per patient request. said she was here last night. Doesn't seem to be coming in.
[2021-01-11 06:25] LABS: Bedside Glucose 154 mg/dL (70-110)
[2021-01-11 07:05] VITALS: PULSE 78; RESP 14; O2SAT 98
[2021-01-11] MEDS: Budesonide Respules 0.5 MG/2 ML AMPUL.NEB. INHALATION (07:05)
--- NOTE | 2021-01-11 07:27 | CASEMGMT ---
Addendum entered by Mary Tong 01/11/21 14:08: Met with and sons. Explained [facility] hospice plan. All in agreement. [facility] arranged transport. Addendum entered by Mary Tong 01/11/21 12:26: Left message with Jaycob at [place] to cancel DC there. Addendum entered by Mary Tong 01/11/21 12:11: Contacted on both numbers again - no answer. Called son - answered. Spoke with both son's Kory and Jn. Explained hospice wishes - both are aware and understand. The and both sons are driving to visit pt. Explained [facility] hospice nurse is visiting pt currently. Explained stated Medicaid mailed letter to with denial and to transfer to SNF would be private pay at $222.60/day and needs 14 days initially. Inquired if could pay for that. Son's state no, but she is in a different car and will have to ask once arrived at the pt's room. Son inquired if there were other options. Explained home with hospice but not recommending. Son agreed. Family to arrive shortly and SW to meet. Spoke with hospice nurse and inquired about [facility]. Rep agrees - contacted office - provided number for P2P. Dr. Merrill completed. Pt is [facility] approved. Scheduling transport. IDT aware. Plan: DC to [facility] 01/11 Addendum entered by Mary Tong 01/11/21 09:55: Left message with to update on hospice consult. Will await return phone call. Addendum entered by Mary Tong 01/11/21 08:26: Dr. dobbs. Spoke with Jaycob at [facility] to confirm placement this date under hospice, private pay. Admissions to contact this worker with outcome. Referral made to [facility]. They are confirming they have contract with [facility]. Will await return call. Original Note: Social Work Met with patient to discuss end of life signs. Pt resting comfortably in bed, awake. Inquired about pt's wishes and how he was feeling. Pt stated he's weak, he wants to be comfortable, and agreeable to hospice services. Explained agrees with hospice. Inquired about changing code status to DNR-CC, explained and had pt repeat wishes to this worker. Pt agreed with changing to DNR-CC and hospice consult. Will speak with physician and make referral. SW to continue to follow. Mary Tong, PATIENT FINANCIAL COORDINATOR FINANCIAL DIRECTOR
--- NOTE | 2021-01-11 08:31 | PCA ---
patient refused breakfast of food or drink that was offered, this aide offered an alternate food/drink option for patient and he shook his head no.
--- NOTE | 2021-01-11 08:36 | NURSING ---
PT REFUSED ALL 8AM MEDS. PT DID DRINK WATER FOR ME. RN AWARE
[2021-01-11 10:10] VITALS: PULSE 89; RESP 18; O2SAT 97
--- NOTE | 2021-01-11 10:24 | NURSING ---
PT REFUSED 10AM MEDS. MOUTH CARE GIVEN, GOWN CHANGED,ASSESSMENT DONE AND PT TURNED TO LEFT SIDE, HEELS UP. CALL LIGHT AND TABLE IN REACH.
--- NOTE | 2021-01-11 10:38 | MDS.RN ---
Attempted to conduct pain interview, resident states I want everyone to leave me alone. Asked resident if there was anything he needs, states just leave. Call light in reach.
--- NOTE | 2021-01-11 11:37 | NURSING ---
PT HAS REFUSED BREAKFAST AND LUNCH. OFFERED PT SOME THING TO DRINK. PT WILL DRINK.
--- NOTE | 2021-01-11 12:20 | NURSING ---
hospice [facility] can accept pt, pt will transport today.
[2021-01-11 13:45] VITALS: BP 134/71; PULSE 83; RESP 18; TEMP 37.3; O2SAT 97
--- NOTE | 2021-01-11 14:00 | NURSING ---
report called to Maria Teresa at hospice inpt unit
== END 2021-01-11 14:30 | disposition hospice, inpatient (51) | DRG 560 ==
PROVIDERS: Admitting Provider Family Medicine Geriatric Medicine; PCP Family Medicine; Visit Provider Family Medicine Geriatric Medicine
DX: S72.002D Fracture of unspecified part of neck of left femur, subsequent encounter for closed fracture with routine healing (principal); N13.8 Other obstructive and reflux uropathy; B37.0 Candidal stomatitis; W19.XXXD Unspecified fall, subsequent encounter; I25.10 Atherosclerotic heart disease of native coronary artery without angina pectoris; K21.9 Gastro-esophageal reflux disease without esophagitis; J44.9 Chronic obstructive pulmonary disease, unspecified; E78.5 Hyperlipidemia, unspecified; N40.1 Benign prostatic hyperplasia with lower urinary tract symptoms; E11.40 Type 2 diabetes mellitus with diabetic neuropathy, unspecified; F32.A Depression, unspecified; R33.8 Other retention of urine; I48.91 Unspecified atrial fibrillation; B35.4 Tinea corporis; E87.6 Hypokalemia; I25.2 Old myocardial infarction; Z87.891 Personal history of nicotine dependence; Z79.899 Other long term (current) drug therapy; Z79.02 Long term (current) use of antithrombotics/antiplatelets; Z79.84 Long term (current) use of oral hypoglycemic drugs; Z79.52 Long term (current) use of systemic steroids
CPT/HCPCS: 36415; 71046; 74018; 80048; 81001; 82962; 85025; 87070; 87077; 87086; 87088; 87184; 87186; 87205; 87426; 87633; 87635; 92507; 92523; 93005; 94640; 94667; 94668; 97110; 97116; 97140; 97162; 97166; 97530; 97535; 97802; J7030; J7050; U0005; A4216; U0003

== ENCOUNTER 2021-01-04 14:32 | Emergency (ER) | payer MEDICARE, BC, SELFPAY ==
[2021-01-04] VITALS (8 sets, daily range): BP systolic 98–134; BP diastolic 57–74; PULSE 68–89; RESP 16–18; TEMP 36.2; O2SAT 94–99; BMI 24.4
--- NOTE | 2021-01-04 14:37 | EKG12_ITS ---
Test Reason : CP Blood Pressure : / mmHG Vent. Rate : 091 BPM Atrial Rate : 091 BPM P-R Int : 240 ms QRS Dur : 142 ms QT Int : 392 ms P-R-T Axes : 037 084 072 degrees QTc Int : 482 ms Sinus rhythm with 1st degree A-V block Right bundle branch block Abnormal ECG Confirmed by THELMA HESTER, GERRY ([id number]), script editor ELIANA CABRERA ([id number]) on 01/06/2021 9:58:17 AM Referred By: CELE Confirmed By:GERRY RENEE MD
--- NOTE | 2021-01-04 14:40 | RAD_ITS ---
STUDY: X-RAY CHEST REASON FOR EXAM: Male, 80 years old. Epigastric pain. TECHNIQUE: Single AP portable view of the chest. COMPARISON: Comparison is made with prior study dated 12/31/2020 at 9:37 AM. FINDINGS: EKG electrodes are seen. There is hyperinflation of the lungs consistent with chronic obstructive lung disease (COPD). Progressive infiltrate in the lateral aspect of the right upper lobe. Stable increased markings at the lung bases suggestive of scarring. Blunting of both concentric angles. Sternal cerclage wires and vascular clips are present from a prior sternotomy and coronary artery bypass graft procedure (CABG). Normal mediastinum and jagdish. Normal visualized pulmonary arteries. There is atherosclerotic calcification of the aortic arch with tortuosity. Normal visualized thoracic spine. Normal visualized ribs, clavicles, and shoulders. There is no demonstrated abnormality of the visualized soft tissue structures of the upper abdomen. RAD/Chest 1 View (Portable) IMPRESSION: Hyperinflation. Progressive infiltrate in the peripheral lateral aspect of the right upper lobe. Stable increased markings at the lung bases suggestive of scarring with blunting of both costophrenic angles. Electronically Signed: Ted Cartagena MD at 15:12 EST , Service support ,
[2021-01-04] MEDS: Aspirin 81 MG TAB.CHEW 324 MG PO (14:44)
--- NOTE | 2021-01-04 14:45 | EDS_ITS ---
HPI History of Present Illness Chief Complaint: Chest Pain Narrative Narrative: 80-year-old male presenting from the TCU regarding chest pain and an EKG which the machine read as acute VA. Patient states that his pain was needlelike in the epigastrium and radiated down into his stomach. This is now gone. He was not diaphoretic, nauseous, lightheaded. He states he is not short of breath. Patient is currently in the TCU recovering from a hip fracture. Patient admits to eating less because is not like the food. He does not have any nausea or vomiting. [facility] Medical History 3-vessel CAD Abnormal glucose Acute VA Allergic rhinitis BPH loc w urin obs/LUTS Cataract COPD (chronic obstructive pulmonary disease) Dyspepsia Dyspepsia and other specified disorders of function of stomach Esophageal reflux Essential and other specified forms of tremor Former smoker Fracture of left hip Fracture of left hip requiring operative repair History of COPD Hyperlipidemia Hypokalemia Hypoxia Migraine Myocardial infarct Pain in limb Peripheral neuropathy Psychosexual dysfunction Home Medications amiodarone 200 mg tablet 200 mg PO DAILY 07/31/18 [History Last Taken Unknown] aspirin 81 mg tablet,delayed release 81 mg PO DAILY 07/31/18 [History Last Taken Unknown] atorvastatin 40 mg tablet 40 mg PO DAILY 07/31/18 [History Last Taken Unknown] clopidogrel 75 mg tablet 75 mg PO DAILY 07/31/18 [History Last Taken Unknown] finasteride 5 mg tablet 5 mg PO DAILY 07/31/18 [History Last Taken Unknown] furosemide 40 mg tablet 40 mg PO DAILY PRN 07/31/18 [History Last Taken Unknown] levetiracetam 1,000 mg tablet 1,000 mg PO QHS 07/31/18 [History Last Taken Unknown] metformin 500 mg tablet 500 mg PO BREAKFAST 07/31/18 [History Last Taken Unknown] pantoprazole 40 mg tablet,delayed release 40 mg PO DAILY 07/31/18 [History Last Taken Unknown] potassium chloride 20 mEq tablet,extended release(part/cryst) 20 meq PO TID 07/31/18 [History Last Taken Unknown] tamsulosin 0.4 mg capsule 0.4 mg PO QHS 07/31/18 [History Last Taken Unknown] topiramate 200 mg tablet 200 mg PO QHS 07/31/18 [History Last Taken Unknown] prednisone 10 mg tablet 10 mg PO QDAY #30 tablet 06/03/20 [Rx Last Taken Unknown] albuterol sulfate [Ventolin HFA] 2 puff INHALATION Q6H 12/14/20 [History Last Taken Unknown] ciclesonide [Alvesco] 2 puff INHALATION BID 12/14/20 [History Last Taken Unknown] tiotropium-olodaterol [Stiolto Respimat] 2 puff INHALATION DAILY 12/14/20 [History Last Taken Unknown] Allergy/AdvReac Type Severity Reaction Status Date / Time tizanidine Allergy Unknown Irritabilit Verified 01/04/21 14:36 y Family History Mother Heart disease Father COPD (chronic obstructive pulmonary disease) CVA (cerebral vascular accident) Surgical History History of left hip hemiarthroplasty Social History household members: spouse Smoking Status: Former smoker Tobacco: How many years used: 50 how long ago did patient quit smokin, 3ppd second hand exposure: Yes alcohol intake: current alcohol intake frequency: holidays/special occasions only Alcohol type: beer ROS ROS ED Constitutional Constitutional ED: Denies fever(s) or sweats Eyes Eyes: Denies none or change in vision ENT ENT ED: Denies rhinorrhea or sore throat Cardiovascular Cardiovascular: Reports as per HPI Respiratory/Chest Respiratory/Chest: Denies cough or dyspnea Gastrointestinal Gastrointestinal: Reports abdominal pain; Denies nausea or vomiting Genitourinary Genitourinary ED: Denies dysuria Musculoskeletal Musculoskeletal: Denies arthralgias or myalgias Integumentary Denies rash Neurologic Neurologic: Denies headache(s) or weakness Psychiatric Psychiatric: Denies anxiety or depression EXAM Physical Exam Const Vital Signs: 01/04/21 14:32 01/04/21 14:37 01/04/21 14:40 Temperature 97.2 F L Temperature Source Temporal Pulse Rate 89 Respiratory Rate 16 Respiratory Effort Normal Non-Labored Blood Pressure Blood Pressure Mean Pulse Ox 94 Oxygen Delivery Method Nasal Cannula Oxygen Flow Rate (L/min) 4 01/04/21 14:41 01/04/21 15:36 01/04/21 16:00 Temperature Temperature Source Pulse Rate 78 79 Respiratory Rate 18 18 Respiratory Effort Blood Pressure 117/74 120/68 115/57 L Blood Pressure Mean 88 85 76 Pulse Ox 99 97 Oxygen Delivery Method Nasal Cannula Nasal Cannula Oxygen Flow Rate (L/min) 3 3 01/04/21 17:17 01/04/21 18:00 01/04/21 18:15 Temperature Temperature Source Pulse Rate 81 82 68 Respiratory Rate 18 17 Respiratory Effort Blood Pressure 134/64 H 98/61 98/61 Blood Pressure Mean 87 73 Pulse Ox 97 96 96 Oxygen Delivery Method Nasal Cannula Oxygen Flow Rate (L/min) 3 Positive obese General Appearance ED: NAD; Negative for pallor Nutritional Appearance: obese HEENT Reports moist mucous membranes normocephalic and atraumatic Eyes PERRL and EOMs intact bilaterally Resp normal respiratory effort and clear to auscultation bilaterally Cardio regular rate and regular rhythm GI normal to inspection, nondistended, normoactive bowel sounds Extremity normal to inspection Neuro oriented x3 Sensorium / Orientation: awake and alert Psych mental status grossly normal Skin General Skin Exam: Negative for jaundice or pallor Heart Score History: Slightly/Non-Suspicious ECG: Normal Age: >/= 65 years Risk Factors: >/= 3 Risk Factors or History of CAD Troponin: </= Normal Limit Score: 4 MDM MDM MDM Narrative Medical decision making narrative: Patient presenting with atypical chest pain which he describes as [id number] in the epigastrium which eventually radiated downward and resolved. He has no other symptoms. Patient's initial EKG and on my interpretation which was reviewed with Dr. Samaniego and this does appear to be a normal sinus rhythm with a ventricular rate of 84 bpm with a right bundle branch block pattern. He does not appear to be consistent with STEMI. Patient states he has no symptoms currently and a repeat EKG was perform ed which showed a sinus rhythm with right bundle branch block as well as a first-degree AV block on my interpretation patient has a white blood cell count of 15.3 which is about where his white blood cell count has been. Hemoglobin hematocrit are stable. Platelets are normal. Renal function electrolytes are normal. Lipase is negative. LFTs unremarkable with exception of an alkaline phosphatase of 184. Troponin is 8. D-dimer was elevated at 2.43 and therefore patient was sent for CTA of the chest. We will repeat a delta troponin as well. Delta troponin is 11. He does not need an secondary troponin. CTA of the chest does not show any PE or dissection but does show progressive infiltrate in the peripheral lateral aspect of the right upper lobe, and stable increased markings at the lung bases suggestive of scarring with blunting of both costophrenic angles. This was discussed with Dr. Merrill. He will start antibiotics as needed. He felt as if the patient was stable to be transferred back to the TCU. Patient was amenable to this. He is transported in stable condition. Impression: 1. Chest pain 2. Right upper lobe infiltrate Lab Data Attestation: I reviewed the patient's lab results. Labs: Laboratory Results - last 24 hr 01/04/21 01/04/21 01/04/21 14:39 14:39 14:39 WBC 15.2 H RBC 3.73 L Hgb 12.1 L Hct 38.8 L MCV 104.0 H MCH 32.4 H MCHC 31.2 L RDW Std Deviation 59.2 H RDW Coeff of Dulce 15.5 H Plt Count 301 MPV 9.2 Immature Gran % (Auto) 1.400 H Neut % (Auto) 78.0 H Lymph % (Auto) 11.5 L Troup % (Auto) 8.0 Eos % (Auto) 0.9 Baso % (Auto) 0.2 Absolute Neuts (auto) 11.9 H Absolute Lymphs (auto) 1.75 Nucleated RBC % 0 D-Dimer Quant (PE/DVT) 2.43 H* Sodium Potassium Chloride Carbon Dioxide Anion Gap BUN Creatinine Estim Creat Clear Calc Est GFR (MDRD) Af Amer Est GFR (MDRD) Non-Af BUN/Creatinine Ratio Glucose Calcium Total Bilirubin 0.30 Direct Bilirubin 0.16 AST 21 ALT 29 Alkaline Phosphatase 184 H Troponin I High Sens Total Protein 7.3 Albumin 2.5 L Globulin 4.8 H Lipase 01/04/21 01/04/21 14:39 16:58 WBC RBC Hgb Hct MCV MCH MCHC RDW Std Deviation RDW Coeff of Dulce Plt Count MPV Immature Gran % (Auto) Neut % (Auto) Lymph % (Auto) Troup % (Auto) Eos % (Auto) Baso % (Auto) Absolute Neuts (auto) Absolute Lymphs (auto) Nucleated RBC % D-Dimer Quant (PE/DVT) Sodium 135 L Potassium 4.2 Chloride 100 Carbon Dioxide 30.0 Anion Gap 5 BUN 32 H Creatinine 1.04 Estim Creat Clear Calc 58.33 Est GFR (MDRD) Af Amer 88 Est GFR (MDRD) Non-Af 73 BUN/Creatinine Ratio 30.8 H Glucose 115 H Calcium 9.3 Total Bilirubin Direct Bilirubin AST ALT Alkaline Phosphatase Troponin I High Sens 8 11 Total Protein Albumin Globulin Lipase 58 L Radiography Diagnostic Testing: Clinical Impression(s) from Imaging Studies Chest X-Ray 01/04/21 14:40 IMPRESSION: Hyperinflation. Progressive infiltrate in the peripheral lateral aspect of the right upper lobe. Stable increased markings at the lung bases suggestive of scarring with blunting of both costophrenic angles. Electronically Signed: Ted Cartagena MD at 15:12 EST , Service support , Chest CTA 01/04/21 15:06 Discharge Plan Triage Chief Complaint: Chest Pain ED Provider: Miguel Martin Dx/Rx/DC Orders Instructions: ED Chest Pain, Noncardiac, ED Hypokalemia, ED Pulmonary Nodule, Solitary Prescriptions: No Action pantoprazole [Protonix] 40 mg tablet,delayed release (DR/EC) 40 mg PO DAILY RF: 0 topiramate [Topamax] 200 mg tablet 200 mg PO QHS RF: 0 tamsulosin 0.4 mg capsule 0.4 mg PO QHS RF: 0 amiodarone 200 mg tablet 200 mg PO DAILY RF: 0 aspirin 81 mg tablet,delayed release (DR/EC) 81 mg PO DAILY RF: 0 atorvastatin 40 mg tablet 40 mg PO DAILY RF: 0 clopidogrel 75 mg tablet 75 mg PO DAILY RF: 0 finasteride 5 mg tablet 5 mg PO DAILY RF: 0 furosemide 40 mg tablet 40 mg PO DAILY PRN (Reason: Shortness of breath or swelling) RF: 0 levetiracetam 1,000 mg tablet 1,000 mg PO QHS RF: 0 potassium chloride [Klor-Con M20] 20 mEq tablet,ER particles/crystals 20 meq PO TID RF: 0 metformin 500 mg tablet 500 mg PO BREAKFAST RF: 0 prednisone 10 mg tablet 10 mg PO QDAY Qty: 30 RF: 0 albuterol sulfate [Ventolin HFA] 90 mcg/actuation HFA aerosol inhaler 2 puff INHALATION Q6H RF: 0 Alvesco 160 mcg/actuation HFA aerosol inhaler 2 puff INHALATION BID RF: 0 Stiolto Respimat 2.5-2.5 mcg/actuation mist 2 puff INHALATION DAILY RF: 0 Primary Care Provider: Nicole Talavera Referrals: Nicole Talavera MD [Primary Care Provider] - Disposition Disposition: Home, Self Care Discharge Date/Time: 01/04/21 18:36
[2021-01-04 14:48] LABS: Absolute Lymphocyte Count 1.75 X10^3/uL (0.83-4.51); Absolute Neutrophil Count 11.9 X10^3/uL (2.0-7.7); Basophil# 0.03 X10^3/uL; Basophil% 0.2 % (0-1); Eosinophil# 0.14 X10^3/uL; Eosinophils% 0.9 % (0-5); Hematocrit 38.8 % (40-54); Hemoglobin 12.1 g/dL (13.0-16.5); Lymphocyte # 1.75 X10^3/ul (0.83-4.51); Lymphocyte % 11.5 % (19-41); Mean Corp Hgb Conc 31.2 g/dL (32-36); Mean Corpuscular Hgb 32.4 pg (27.0-32.0); Mean Platelet Vol. 9.2 fl (6.2-12.0); Monocyte# 1.21 X10^3/uL; NRBC Flagged by Analyzer 0 % (0-5); Neutrophil # 11.86 X10^3/uL (2.7-7.7); Platelet Count 301 K/mm3 (150-450); RBC Distribution Width CV 15.5 % (11.6-14.6); RBC Distribution Width SD 59.2 fl (35.1-43.9); Red Blood Count 3.73 M/mm3 (4.6-6.2); White Blood Count 15.2 K/mm3 (4.4-11.0)
--- NOTE | 2021-01-04 15:02 | PCM.HOSP.N ---
Hospitalist Note Rapid response note. Rapid response was called as the patient had chest pain/pressure while he was doing physical therapy. Patient was admitted in TCU from and therefore no previous EKG to compare. Chest pain midsternal but resolved after 4 to 5 minutes. High-sensitivity troponin ordered.Twelve-lead EKG was done shows normal sinus rhythm, RBBB, Q waves in V1 V2 at 84 bpm. QTc 479 ms. With right bundle branch block it is difficult to interpret 8 ST elevation V1 to V2 but reciprocal changes of ST depression in 1 aVL V5 and V6. Patient advised baby aspirin nitro sublingual but not available in TCU crash cart. Patient immediately transferred to ER for further evaluation and management.
[2021-01-04 15:04] LABS: D-Dimer Quantitative (DVT/PE) 2.43 FEU/ug/m (0.27-0.49)
--- NOTE | 2021-01-04 15:06 | CT_ITS ---
STUDY: CTA CHEST REASON FOR EXAM: Male, 80 years old. chest pain RADIATION DOSAGE (If Supplied By Facility): CTDIvol = ( 11.38 ) mGy, DLP = ( 378.72 ) mGycm TECHNIQUE: The examination was performed with the intravenous administration of IV 100mL Isovue-370. Post-processing of the angiographic images was performed, with multiplanar reformation and 3D reconstruction. Individualized dose optimization techniques were used for this CT. COMPARISON: Chest x-ray dated January 04, 2021. FINDINGS: The lungs are hyperinflated with moderate and diffuse cystic emphysematous changes. Mild a small amount of irregular consolidation is present in the posterior inferior aspect of the right upper lobe abutting the interlobar fissure. Interstitial thickening is present in the posterior aspect of the superior segment of the right lower lobe. Stellate and irregular mild fibrotic-appearing scarring is seen in the bilateral lower lobes, right greater than left. A small right pleural effusion is also present. Mild bronchiectasis is present in the right lower lobe. Normal enhancement of the main pulmonary artery and right and left pulmonary arteries. Normal enhancement of the bilateral peripheral pulmonary arteries. There is no demonstrated pulmonary embolism. There is atherosclerotic calcification of the aortic arch with tortuosity. There is no demonstrated aortic dissection. Sternal cerclage wires and vascular clips are present from a prior sternotomy and coronary artery bypass graft procedure (CABG). Normal heart size. No pericardial effusion is present. Normal mediastinum. Normal hilar regions. Normal visualized trachea and bronchi. Normal chest wall structures. There are degenerative changes of thoracic spine. Normal visualized upper abdomen. IMPRESSION: Probable small acute pneumonic infiltrate in the posterior inferior aspect of the right upper lobe. 1. No demonstrated pulmonary embolism or arterial dissection. 2. The lungs are hyperinflated with moderate and diffuse cystic emphysematous changes. 3. Mild a small amount of irregular consolidation is present in the posterior inferior aspect of the right upper lobe abutting the interlobar fissure. 4. Interstitial thickening is present in the posterior aspect of the superior segment of the right lower lobe. 5. Stellate and irregular mild fibrotic-appearing scarring is seen in the bilateral lower lobes, right greater than left. 6. A small right pleural effusion is also present. 7. Mild bronchiectasis is present in the right lower lobe. 8. Recommend the patient be a rolled in the [place] lung screening program and follow up according to the Fleischner Society''s criteria due to high risk factors including cystic emphysema and stellate-appearing opacities in both lungs to ensure this represents fibrosis and no occult malignant process is present. Electronically Signed: Rylan Farris MD at 16:46 EST , Service support , CT/CTA Chest W/WO Contrast
[2021-01-04 15:07] LABS: AST(SGOT) 21 U/L (15-37); Alanine Aminotransfer ALT/SGPT 29 U/L (16-61); Albumin, Serum 2.5 g/dL (3.2-5.0); Alkaline Phosphatase 184 U/L (45-117); Bilirubin, Direct 0.16 mg/dL (0.00-0.30); Globulin 4.8 g/dL (2.2-4.2); Protein, Total 7.3 g/dL (6.4-8.2)
[2021-01-04 15:12] LABS: Anion Gap 5 (5-15); BUN 32 mg/dL (7-18); BUN/Creat Ratio 30.8 RATIO (10-20); Calcium,Total 9.3 mg/dL (8.5-10.1); Chloride 100 mmol/L (98-107); Creatinine, Serum 1.04 mg/dL (0.70-1.30); EST Glomerular Filtration Rate 73 mL/min (>60); Est Glom Filt Rate - Afr Amer 88 mL/min (>60); Estimated Creatinine Clearance 58.33 ml/min; Glucose 115 mg/dL (74-106); Lipase 58 U/L (73-393); Potassium 4.2 mmol/L (3.5-5.1); Sodium Level 135 mmol/L (136-145); Troponin-I HS 8 pg/mL (3.0-78.0)
[2021-01-04 17:31] LABS: Troponin-I HS 11 pg/mL (3.0-78.0)
== END 2021-01-04 18:36 | disposition home or self-care (01) ==
PROVIDERS: Emergency Provider Student in an Organized Health Care Education/Training Program; PCP Family Medicine
DX: R07.9 Chest pain, unspecified (principal); I25.2 Old myocardial infarction; I25.10 Atherosclerotic heart disease of native coronary artery without angina pectoris; Z87.891 Personal history of nicotine dependence
CPT/HCPCS: 71045; 71275; 80048; 80076; 83690; 84484; 85025; 85379; 93005; 99284; Q9967; A4216

== ENCOUNTER 2021-01-10 16:06 | Emergency (ER) | payer MEDICARE, BC, SELFPAY ==
[2021-01-10 16:08] VITALS: BP 127/70; PULSE 85; RESP 22; TEMP 36.6; O2SAT 96; BMI 24.1
[2021-01-10 16:19] VITALS: BP 127/70; PULSE 85; RESP 22; TEMP 36.6; O2SAT 96
--- NOTE | 2021-01-10 16:50 | EKG12_ITS ---
Test Reason : GENERAL Blood Pressure : / mmHG Vent. Rate : 081 BPM Atrial Rate : 081 BPM P-R Int : 202 ms QRS Dur : 150 ms QT Int : 422 ms P-R-T Axes : 078 076 069 degrees QTc Int : 490 ms Normal sinus rhythm Right bundle branch block Abnormal ECG Confirmed by ALYSSA HESTER, KENYA ([id number]), news copy editor ELIANA CABRERA ([id number]) on 01/12/2021 1:22:12 PM Referred By: ASHANTI Confirmed By:KENYA SHAH MD
--- NOTE | 2021-01-10 16:51 | EX.ED.DYSGE1 ---
HPI History of Present Illness Chief Complaint: General Illness Narrative Narrative: Patient presents with generalized weakness. He is in a rehab facility in our own hospital, noticed that he was slightly more somnolent than normal. Patient has no concerns, he is denying any kind of pain. He is in the rehab hospital status post a hip fracture. No noted fevers, he is being treated for a UTI and pneumonia. [facility] Medical History 3-vessel CAD Abnormal glucose Acute IL Allergic rhinitis BPH loc w urin obs/LUTS Cataract COPD (chronic obstructive pulmonary disease) Dyspepsia Dyspepsia and other specified disorders of function of stomach Esophageal reflux Essential and other specified forms of tremor Former smoker Fracture of left hip Fracture of left hip requiring operative repair History of COPD Hyperlipidemia Hypokalemia Hypoxia Migraine Myocardial infarct Pain in limb Peripheral neuropathy Psychosexual dysfunction Home Medications amiodarone 200 mg tablet 200 mg PO DAILY 07/31/18 [History Last Taken Unknown] atorvastatin 40 mg tablet 40 mg PO DAILY 07/31/18 [History Last Taken Unknown] finasteride 5 mg tablet 5 mg PO DAILY 07/31/18 [History Last Taken Unknown] levetiracetam 1,000 mg tablet 1,000 mg PO QHS 07/31/18 [History Last Taken Unknown] metformin 500 mg tablet 500 mg PO BREAKFAST 07/31/18 [History Last Taken Unknown] pantoprazole 40 mg tablet,delayed release 40 mg PO DAILY 07/31/18 [History Last Taken Unknown] potassium chloride 20 mEq tablet,extended release(part/cryst) 20 meq PO TID 07/31/18 [History Last Taken Unknown] tamsulosin 0.4 mg capsule 0.4 mg PO QHS 07/31/18 [History Last Taken Unknown] topiramate 200 mg tablet 200 mg PO QHS 07/31/18 [History Last Taken Unknown] albuterol sulfate [Ventolin HFA] 2 puff INHALATION Q6H 12/14/20 [History Last Taken Unknown] apixaban [Eliquis] 5 mg PO BID #0 tab 01/08/21 [Rx Last Taken Unknown] budesonide 0.5 mg INHALATION BID.RT #0 ml 01/08/21 [Rx Last Taken Unknown] duloxetine 30 mg PO DAILY #0 cap 01/08/21 [Rx Last Taken Unknown] food supplemt, lactose-reduced [Ensure Compact] 118 ml PO 4X/DAY #0 ml 01/08/21 [Rx Last Taken Unknown] furosemide 40 mg PO DAILY #0 tab 01/08/21 [Rx Last Taken Unknown] guaifenesin [Mucus Relief ER] 600 mg PO BID #0 tab 01/08/21 [Rx Last Taken Unknown] melatonin 10 mg PO QHS #0 tab 01/08/21 [Rx Last Taken Unknown] menthol-zinc oxide [Calmoseptine] 1 applic TOPICAL BID@0600,2200 #0 g 01/08/21 [Rx Last Taken Unknown] metoprolol succinate 25 mg PO DAILY #0 tab 01/08/21 [Rx Last Taken Unknown] nystatin [Nyamyc] 1 applic TOPICAL BID@0600,2200 #0 g 01/08/21 [Rx Last Taken Unknown] peg [id number] [Artificial Tears([id number])] 2 drp EACH EYE Q1H PRN #0 ml 01/08/21 [Rx Last Taken Unknown] polyethylene glycol 3350 17 g PO BID #0 ea 01/08/21 [Rx Last Taken Unknown] pregabalin 100 mg PO DAILY 7 Days #14 cap 01/08/21 [Rx Last Taken Unknown] pregabalin 200 mg PO QHS 7 Days #28 cap 01/08/21 [Rx Last Taken Unknown] sennosides-docusate sodium [Stool Softener-Stimulant Laxat] 2 tab PO BID #0 tab 01/08/21 [Rx Last Taken Unknown] cefepime 2 g IV DAILY 01/10/21 [History Last Taken Unknown] levetiracetam 1,500 mg PO QAM 01/10/21 [History Last Taken Unknown] methylprednisolone 4 mg PO QODAY 01/10/21 [History Last Taken Unknown] Allergy/AdvReac Type Severity Reaction Status Date / Time tizanidine Allergy Unknown Irritabilit Verified 01/04/21 14:36 y Family History Mother Heart disease Father COPD (chronic obstructive pulmonary disease) CVA (cerebral vascular accident) Surgical History History of left hip hemiarthroplasty Social History household members: spouse Smoking Status: Former smoker Tobacco: How many years used: 50 how long ago did patient quit smokin, 3ppd second hand exposure: Yes alcohol intake: current alcohol intake frequency: holidays/special occasions only Alcohol type: beer ROS ROS ED ROS Narrative Past medical history: Reviewed, it is quite extensive including hypertension diabetes BPH, history of heart disease, A. fib, COPD, history of hip fracture, GERD, seizures Medications: Reviewed Social history: Noncontributory Review of systems: All systems negative except as indicated. He is lucid and coherent and gives me a reasonable review of systems. He does tell me he feels tired. General: No fever Eyes: No visual changes ENT: No upper airway congestion, normal voice Neck: No neck pain Cardiovascular: No chest pain Respiratory: Chronic dyspnea but no change Gastrointestinal: No abdominal pain, nausea vomiting or diarrhea Genitourinary: No dysuria Musculoskeletal: No current musculoskeletal pain Skin: No rash Neurological: No focal weakness. Hematologic: No easy bleeding or easy bruising EXAM Physical Exam Narrative Exam Narrative: Physical exam General: Patient appears chronically ill. He does not appear acutely ill. He is awake, he is lucid and coherent as I walk into the room. Head: Normocephalic, Atraumatic Eyes: Conjunctiva not pale ENT: Slightly dry mucous membranes Neck: Supple, Nontender, No lymphadenopathy Cardiovascular: Regular rate, Regular rhythm Respiratory: Coarse bilateral breath sounds, he is speaking in full sentences. Abdomen: Soft, Nontender, Nondistended Back: Nontender, Normal Inspection. Negative for: CVA tenderness Extremities: Full range of motion Skin: Normal color, No rash Neurological: Alert, Normal Strength, Normal Sensation. No focal deficit Psychological: Normal affect Const Vital Signs: 01/10/21 16:08 01/10/21 16:19 01/10/21 16:20 Temperature 97.9 F 97.9 F Temperature Source Oral Oral Pulse Rate 85 85 Respiratory Rate 22 H 22 H Respiratory Effort Normal Non-Labored Respiratory Pattern Normal Blood Pressure 127/70 H 127/70 H Blood Pressure Mean 89 89 Pulse Ox 96 96 Oxygen Delivery Method Nasal Cannula Nasal Cannula Oxygen Flow Rate (L/min) 3 3 01/10/21 17:43 Temperature 98.9 F Temperature Source Temporal Pulse Rate 84 Respiratory Rate 18 Respiratory Effort Respiratory Pattern Blood Pressure 133/71 H Blood Pressure Mean 91 Pulse Ox 95 Oxygen Delivery Method Nasal Cannula Oxygen Flow Rate (L/min) 3 MDM MDM MDM Narrative Medical decision making narrative: Patient has an unremarkable work-up. His pneumonia has improved as well as his urinalysis. He is given IV fluids and he improved he is speaking more clear. I will discharge him in stable condition. Lab Data Labs: Laboratory Results - last 24 hr 01/10/21 01/10/21 01/10/21 16:20 16:20 19:05 WBC 14.0 H RBC 4.02 L Hgb 13.1 Hct 42.4 MCV 105.5 H MCH 32.6 H MCHC 30.9 L RDW Std Deviation 58.3 H RDW Coeff of [place] 14.8 H Plt Count 266 MPV 10.0 Immature Gran % (Auto) 2.000 H Neut % (Auto) 74.7 H Lymph % (Auto) 12.6 L [place] % (Auto) 6.9 Eos % (Auto) 3.3 Baso % (Auto) 0.5 Absolute Neuts (auto) 10.4 H Absolute Lymphs (auto) 1.76 Nucleated RBC % 0 Lipase 64 L Urine Color Yellow Urine Clarity Clear Urine pH 7.0 Ur Specific [place] 1.010 Urine Protein 30 H Urine Glucose (UA) Normal Urine Ketones Negative Urine Occult Blood 150 H Urine Nitrite Negative Urine Bilirubin Negative Urine Urobilinogen Normal Ur Leukocyte Esterase 100 H Urine RBC 5-10 SEEN Urine WBC 10-25 SEEN Ur Squamous Epith Cells 0-5 SEEN Urine Bacteria 1+ Hyaline Casts 10-25 SEEN Urine Mucus 0 SEEN Radiography Diagnostic Testing: Clinical Impression(s) from Imaging Studies Chest X-Ray 01/10/21 17:53 IMPRESSION: Right lung scarring, bronchiectasis, possibility of early pneumonia is present. Small left effusion and atelectasis. Electronically Signed: Aden Devries MD at 18:50 EST Tel , Service support , Discharge Plan Triage Chief Complaint: General Illness ED Provider: Gualberto Arias Dx/Rx/DC Orders Clinical Impression: Weakness, Dehydration Instructions: Dehydration, ED Weakness (Uncertain Cause) Prescriptions: No Action pantoprazole [Protonix] 40 mg tablet,delayed release (DR/EC) 40 mg PO DAILY RF: 0 topiramate [Topamax] 200 mg tablet 200 mg PO QHS RF: 0 tamsulosin 0.4 mg capsule 0.4 mg PO QHS RF: 0 amiodarone 200 mg tablet 200 mg PO DAILY RF: 0 atorvastatin 40 mg tablet 40 mg PO DAILY RF: 0 finasteride 5 mg tablet 5 mg PO DAILY RF: 0 levetiracetam 1,000 mg tablet 1,000 mg PO QHS RF: 0 potassium chloride [Klor-Con M20] 20 mEq tablet,ER particles/crystals 20 meq PO TID RF: 0 metformin 500 mg tablet 500 mg PO BREAKFAST RF: 0 albuterol sulfate [Ventolin HFA] 90 mcg/actuation HFA aerosol inhaler 2 puff INHALATION Q6H RF: 0 furosemide 40 mg Tablet 40 mg PO DAILY Qty: 0 RF: 0 polyethylene glycol 3350 17 gram Powder In Packet 17 g PO BID Qty: 0 RF: 0 sennosides-docusate sodium [Stool Softener-Stimulant Laxat] 8.6-50 mg Tablet 2 tab PO BID Qty: 0 RF: 0 budesonide 0.5 mg/2 mL Suspension For Nebulization 0.5 mg inhalation BID.RT Qty: 0 RF: 0 metoprolol succinate 25 mg Tablet Extended Release 24 Hr 25 mg PO DAILY Qty: 0 RF: 0 nystatin [Nyamyc] 100,000 unit/gram Powder 1 applic topical BID@0600,2200 Qty: 0 RF: 0 Ensure Compact Liquid 118 ml PO 4X/DAY Qty: 0 RF: 0 Artificial Tears(ds-[id number]) 1-0.2-0.2 % Drops 2 drp EACH EYE Q1H PRN (Reason: DRY EYES) Qty: 0 RF: 0 duloxetine 30 mg Capsule,Delayed Release(Dr/Ec) 30 mg PO DAILY Qty: 0 RF: 0 pregabalin 50 mg Capsule 100 mg PO DAILY 7 Days Qty: 14 RF: 0 pregabalin 50 mg Capsule 200 mg PO QHS 7 Days Qty: 28 RF: 0 menthol-zinc oxide [Calmoseptine] 0.44-20.6 % Ointment 1 applic topical BID@0600,2200 Qty: 0 RF: 0 Eliquis 5 mg Tablet 5 mg PO BID Qty: 0 RF: 0 guaifenesin [Mucus Relief ER] 600 mg Tablet Extended Release 12hr 600 mg PO BID Qty: 0 RF: 0 melatonin 10 mg Tablet, Sublingual 10 mg PO QHS Qty: 0 RF: 0 methylprednisolone 4 mg Tablets,Dose Pack 4 mg PO QODAY RF: 0 cefepime 2 gram Piggyback 2 g IV DAILY RF: 0 levetiracetam 1,000 mg tablet 1,500 mg PO QAM RF: 0 Primary Care Provider: Nicole Talavera Referrals: Nicole Talavera MD [Primary Care Provider] - 3-5 Days Disposition Disposition: Home, Self Care
[2021-01-10 16:58] LABS: Absolute Lymphocyte Count 1.76 X10^3/uL (0.83-4.51); Absolute Neutrophil Count 10.4 X10^3/uL (2.0-7.7); Basophil# 0.07 X10^3/uL; Basophil% 0.5 % (0-1); Eosinophil# 0.46 X10^3/uL; Eosinophils% 3.3 % (0-5); Hematocrit 42.4 % (40-54); Hemoglobin 13.1 g/dL (13.0-16.5); Lymphocyte # 1.76 X10^3/ul (0.83-4.51); Lymphocyte % 12.6 % (19-41); Mean Corp Hgb Conc 30.9 g/dL (32-36); Mean Corpuscular Hgb 32.6 pg (27.0-32.0); Mean Corpuscular Volume 105.5 fL (80-94); Monocyte# 0.96 X10^3/uL; Monocyte% 6.9 % (0-10); NRBC Flagged by Analyzer 0 % (0-5); Neutrophil # 10.43 X10^3/uL (2.7-7.7); Neutrophil % 74.7 % (47-70); Platelet Count 266 K/mm3 (150-450); RBC Distribution Width CV 14.8 % (11.6-14.6); RBC Distribution Width SD 58.3 fl (35.1-43.9); Red Blood Count 4.02 M/mm3 (4.6-6.2)
[2021-01-10 17:09] LABS: Lipase 64 U/L (73-393)
[2021-01-10 17:43] VITALS: BP 133/71; PULSE 84; RESP 18; TEMP 37.2; O2SAT 95
--- NOTE | 2021-01-10 17:53 | RAD_ITS ---
STUDY: X-RAY CHEST REASON FOR EXAM: Male, 80 years old. cough slurred speech fatigue TECHNIQUE: Frontal portable view of the chest COMPARISON: None. FINDINGS: Appearance is similar to prior. There is opacity in the right lower lung, likely scarring and bronchiectasis. There is a small left effusion and left lower lobe atelectasis. Lungs are severely emphysematous. There is no pneumothorax. Cardiac size is normal with prior open heart surgery. RAD/Chest 1 View (Portable) IMPRESSION: Right lung scarring, bronchiectasis, possibility of early pneumonia is present. Small left effusion and atelectasis. Electronically Signed: Aden Devries MD at 18:50 EST Tel , Service support ,
[2021-01-10 19:09] LABS: Mucous, Urine 0 SEEN /hpf (<or=2+)
[2021-01-10 19:11] LABS: Color, Urine Yellow (Yellow); Glucose, Dipstick Normal (Normal); Ketone-Dipstick Negative (Negative); Leukocyte Esterase-Dipstick 100 /ul (Negative); Nitrite-Dipstick Negative (Negative); Occult Blood-Urine 150 /ul (Negative); Protein-Dipstick 30 mg/dl (Negative); Urine Bilirubin Dipstick Negative (Negative); Urine Clarity Clear (Clear); Urine Urobilinogen Normal (Normal)
[2021-01-10 19:19] LABS: Hyaline Cast 10-25 SEEN /lpf (0-5)
[2021-01-10 19:21] LABS: Red Blood Cells-Urine 5-10 SEEN /hpf (0-5); Squamous Epithelial Cells - UA 0-5 SEEN /hpf (0-5); White Blood Cells 10-25 SEEN /hpf (0-5)
[2021-01-10 19:22] LABS: Bacteria 1+ /hpf (None Seen)
--- NOTE | 2021-01-10 20:10 | CT_ITS ---
EXAM: CT Head Without Intravenous Contrast CLINICAL INDICATION: 80 years old, Male; ms change TECHNIQUE: Multiple axial images were obtained of the head without intravenous contrast. This CT exam was performed using one or more of the following dose reduction techniques: automated exposure control, adjustment of the mA and/or kV according to patient size, and/or use of iterative reconstruction technique. This report was created using [employer] report generation technology. COMPARISON: None. FINDINGS: Brain and extra-axial spaces: Mild small vessel ischemic/degenerative changes. Mild cerebral and cerebellar atrophy. No intra- or extra-axial hemorrhage. No intracranial mass or mass effect. No hydrocephalus. Basal cisterns are patent. Bones/joints: Unremarkable. No discrete lytic or blastic abnormalities. Vasculature: Atherosclerotic disease. Sinuses: Unremarkable as visualized. Clear. Mastoid air cells: Unremarkable. Clear. Orbits: Visualized globes, extraocular muscles, optic nerves and retrobulbar fat appear unremarkable. CT/Brain/Head without Contrast IMPRESSION: No acute findings in the head/brain. Electronically Signed: Milan Pearson MD at 21:20 EST Tel , Service support ,
[2021-01-10 21:45] VITALS: BP 124/74; PULSE 83; RESP 14; O2SAT 94
== END 2021-01-10 21:51 | disposition home or self-care (01) ==
PROVIDERS: Emergency Provider Emergency Medicine; PCP Family Medicine
DX: R53.1 Weakness (principal); E86.0 Dehydration; I25.10 Atherosclerotic heart disease of native coronary artery without angina pectoris; I25.2 Old myocardial infarction; I10 Essential (primary) hypertension; I48.91 Unspecified atrial fibrillation; J44.9 Chronic obstructive pulmonary disease, unspecified; K21.9 Gastro-esophageal reflux disease without esophagitis; N40.0 Benign prostatic hyperplasia without lower urinary tract symptoms; Z79.01 Long term (current) use of anticoagulants; Z87.891 Personal history of nicotine dependence; Z79.84 Long term (current) use of oral hypoglycemic drugs; Z79.899 Other long term (current) drug therapy
CPT/HCPCS: 70450; 71045; 81001; 83690; 85025; 93005; 99285

== ENCOUNTER → 2021-01-13 08:59 | Outpatient (REF) | payer MEDICARE, BC, SELFPAY | LOC: LABSPEC 08:59 | PROVIDERS: PCP Family Medicine; Visit Provider Internal Medicine Cardiovascular Disease | DX: Z03.818 Encounter for observation for suspected exposure to other biological agents ruled out (principal) | CPT/HCPCS: 87635; U0005; U0003 ==